=== PATIENT | female | born 1945 | race Caucasian/White ===

== ENCOUNTER 2016-10-19 13:16 | Inpatient (IN) ==
[2016-10-19] MEDS ORDERED: 0.9 % Sodium Chloride 1,000 ML IV ONE (13:53)
--- NOTE | 2016-10-19 13:57 | Emergency Department Note ---
Disposition Clinical Impression: Bradycardia, NSTEMI (non-ST elevated myocardial infarction) Disposition: Admitted As Inpatient Condition: Fair Referrals: Meño Marroquin DO [Primary Care Provider] - Time of Disposition: 15:16 Dizziness HPI - General Stated Complaint: HYPERTENSION Time Seen by Provider: 10/19/16 13:21 Source: patient Mode of arrival: ambulatory Limitations: no limitations Nursing Notes Reviewed: Yes Vital Signs Reviewed: Yes - History of Present Illness HPI Narrative: 71-year-old female history of hypertension and diabetes presents with one-day of malaise along with bradycardia with heart rates in the 30s today and hypotension with blood pressure in the 70s at home. She takes metoprolol and amlodipine. Symptoms are worse when she stands up and better with rest. She states that she has not had any dosage changes and the last 6 months. She states that the metoprolol was added for palpitations. She denies any recent illness or injury. She states that she felt lightheaded and near-syncope today , but did not pass out. She denies any other symptoms including headache, confusion, chest pain or shortness of breath, nausea, vomiting, diarrhea, or constipation. She denies abdominal pain, changes in urination or bowel movements, or rashes or edema. - Related Data Previous Rx's Medication Instructions Recorded Azithromycin [Zithromax] 250 mg PO DAILY #6 tablet 08/23/16 Allergies Allergy/AdvReac Type Severity Reaction Status Date / Time No Known Allergies Allergy Verified 08/23/16 10:19 All systems ED: reviewed and negative except as stated. Past Medical History - Past Medical History Attestation: Yes The following information was validated with the patient. Source: patient Medical history: Reports: diabetes, hyperlipidemia, hypertension Psychiatric history: Reports: no psych history - Social History Smoking Status: Never smoker Smokeless Tobacco Status: No Alcohol use: Reports: none Drug use: Reports: none Physical Exam - Head Head exam: atraumatic, normocephalic, normal inspection - Eye Eye exam: Present: normal appearance, PERRL, EOMI - ENT ENT exam: normal exam, normal oropharynx, mucous membranes moist - Neck Neck exam: Present: normal inspection, full ROM, trachea midline - Chest Chest inspection: Present: normal inspection, symmetric chest wall rise - Respiratory Respiratory exam: Clear to auscultation bilaterally without wheezes rales or rhonchi Cardiovascular Bradycardic without murmurs, rub, or gallop. - Abdominal Exam Abdominal exam: Present: soft, Non-Tender. Absent: tenderness, distention, guarding, rebound, rigidity - Extremities Exam Extremities exam: Present: normal inspection, full ROM - Expanded Lower Extremity Exam Hip/Pelvis exam: Present: normal inspection, full ROM - Back Exam Back exam: Present: normal inspection, full ROM. Absent: tenderness, CVA tenderness (R), CVA tenderness (L) - Neurological Exam Neurological exam: Present: alert, oriented X3, CN II-XII intact - Psychiatric Psychiatric exam: Present: normal affect, normal mood - Skin Skin exam: Present: warm, dry, intact, normal color - General Limitations: no limitations General appearance: alert Course - Reevaluation(s) Reevaluation #1: Patient with history of metoprolol use without any other recent illness with bradycardia and hypotension at home. Blood pressure is 100/50 and patient is mentating normally with heart rate in the 30s on my evaluation. We will not place the patient and give her pain at this time, but if he has symptoms or hypotension we will do each of these. Patient will need to be admitted for bradycardia with hypotension and near-syncope on. Time: 14:22 Reevaluation #2: Notified of troponin elevated to 9.64. Patient does know on further questioning that 4 days ago she had a few hours of chest heaviness that radiated down her bilateral upper extremities and up into her neck. She thought that it was likely indigestion. It remitted after a few hours. Not having any chest pain or shortness of breath at all today. Time: 15:15 Reevaluation #3: Case discussed with garnett machine operator helper sonar technician doctors Adele. Given that the patient has no ischemia on EKG and has no symptoms for the last 4 days she does not feel there is an indication for an emergent catheter. She would like the patient on a heparin drip for likely left heart catheter tomorrow morning. Accepted by Dr. Villagomez for further management. Time: 15:37 Vital Signs Temperature 98.2 F 10/19/16 13:17 Pulse Rate 39 10/19/16 13:17 Respiratory Rate 18 10/19/16 13:17 Blood Pressure 105/57 10/19/16 13:17 O2 Sat by Pulse Oximetry 96 10/19/16 13:17 Temperature 98.2 F 10/19/16 13:17 Pulse Rate 39 10/19/16 13:17 Respiratory Rate 18 10/19/16 13:17 Blood Pressure 105/57 10/19/16 13:17 O2 Sat by Pulse Oximetry 96 10/19/16 13:17 Dizziness - Lab Data Result diagrams: 10/19/16 14:21 10/19/16 14:21 Lab Results 10/19/16 10/19/16 10/19/16 Range/Units 14:21 14:21 14:21 WBC 12.5 H (4.3-11.1) K/mcL RBC 4.14 (3.82-4.97) M/mcL Hgb 13.2 (11.5-15.4) g/dL Hct 38.5 (35.3-44.9) % MCV 93.0 (83.0-100.0) fL MCH 31.9 (28.0-33.3) pg MCHC 34.3 (31.6-35.5) g/dL RDW 12.9 (11.5-14.5) % Plt Count 213 (140-400) K/mcL MPV 10.3 (9.4-12.4) fL Immature Gran % 0.3 (0-4) % Seg Neutrophils % 67.7 % Lymphocytes % 22.1 % Monocytes % 9.6 % Eosinophils % 0.2 % Basophils % 0.1 % Neutrophils # 8.4 (1.6-8.9) K/mcL Lymphocytes # 2.8 (0.6-4.6) K/mcL Monocytes # 1.2 (0.0-1.3) K/mcL Eosinophils # 0.0 (0.0-0.6) K/mcL Basophils # 0.0 (0.0-0.2) K/mcL Sodium 136 (136-145) mEq/L Potassium 3.3 L (3.5-4.5) mEq/L Chloride 101 (98-109) mEq/L Carbon Dioxide 23 (19-29) mEq/L BUN 18 (7-20) mg/dL Creatinine 1.08 (0.57-1.11) mg/dL Est GFR ( Amer) > 60 (> 60) Est GFR (Non-Af Amer) 50 L (> 60) BUN/Creatinine Ratio 17 (6-26) Glucose 150 H (70-99) mg/dL Calculated Osmolality 287 (280-300) Calcium 9.1 (8.6-10.8) mg/dL Troponin I 9.64 H* (0-0.03) ng/mL
--- NOTE | 2016-10-19 14:00 | Emergency Department Note ---
START Narrative - START START: I examined this patient and my medical decision-making was reviewed with the CREDIT ADMINISTRATION OFFICER/PA/Advanced Practice Nurse/Resident Physician. I agree with the documented findings, disposition and treatment plan as described except to the extent set forth below. ED attending: Patient's emergency medicine resident Dr. Barrera. Please see copy of this note for H&P evaluation and management and ED disposition. We both had independent [id number] time in contact with this patient. Briefly: A 71-year-old female by EMS for lightheadedness and dizziness. Normally takes metoprolol and amlodipine for blood pressure comes in bradycardic in the 30s systolic of 70 recorded in the field at 105 in the ED. She is tired because she is lying supine she is asymptomatic. EKG shows sinus bradycardia without acute ischemic changes. Patient will be given IV fluids screening labs and chest x-ray. We will admit patient. Forward symptomatic bradycardia. Possibly from unintentional beta ankit overmedication. Provided 45 minutes critical care service this patient. Disposition pending.
[2016-10-19 14:41] LABS: Basophils % 0.1 %; Eosinophils % 0.2 %; Hematocrit 38.5 % (35.3-44.9); Hemoglobin 13.2 g/dL (11.5-15.4); Immature Granulocytes % 0.3 % (0-4); Lymphocytes # 2.8 K/mcL (0.6-4.6); Lymphocytes % 22.1 %; Mean Corpuscular HGB Conc 34.3 g/dL (31.6-35.5); Mean Corpuscular Hemoglobin 31.9 pg (28.0-33.3); Mean Platelet Volume 10.3 fL (9.4-12.4); Monocytes # 1.2 K/mcL (0.0-1.3); Monocytes % 9.6 %; Neutrophils # 8.4 K/mcL (1.6-8.9); Platelet Count 213 K/mcL (140-400); Red Blood Count 4.14 M/mcL (3.82-4.97); Red Cell Distribution Width 12.9 % (11.5-14.5); Segmented Neutrophils % 67.7 %
[2016-10-19 14:59] LABS: BUN/Creatinine Ratio 17 (6-26); Blood Urea Nitrogen 18 mg/dL (7-20); Calcium 9.1 mg/dL (8.6-10.8); Carbon Dioxide 23 mEq/L (19-29); Chloride 101 mEq/L (98-109); Glucose 150 mg/dL (70-99); Osmolality,Calculated 287 (280-300); Potassium 3.3 mEq/L (3.5-4.5); Sodium 136 mEq/L (136-145); eGFR For African Americans > 60 (> 60); eGFR For Non-African Americans 50 (> 60)
[2016-10-19] MEDS ORDERED: *HR* Heparin 5,000 UNIT/ML VIAL IVP PRN ×2 (15:27)
[2016-10-19] MEDS ORDERED: *HR* Heparin 5,000 UNIT/ML VIAL IVP ONE (15:27)
[2016-10-19] MEDS ORDERED: Aspirin 81 MG TAB.CHEW PO ONE (15:37)
[2016-10-19 16:21] LABS: INR 1.1; Prothrombin Time 12.4 Seconds (9.4-12.1)
[2016-10-19 16:24] LABS: Activated Partial Thrombo Time 27.8 Seconds (26.0-36.0)
[2016-10-19] MEDS: Heparin 25,000 UNIT/500 ML D5W 25,000 UNIT/500 ML MLS IVC SCH (16:35)
[2016-10-19] MEDS ORDERED: Ondansetron 4 MG/2 ML VIAL IVP PRN (18:20)
[2016-10-19] MEDS ORDERED: Acetaminophen 325 MG TABLET PO PRN (18:20)
[2016-10-19] MEDS ORDERED: *HR* Atropine Sulfate 1 MG/10 ML SYRINGE IVP PRN (18:27)
[2016-10-19] MEDS ORDERED: Dextrose Gel 15 GM PO PRN ×2 (18:29)
[2016-10-19] MEDS ORDERED: D5% in Water 1,000 ML IV PRN (18:29)
[2016-10-19] MEDS ORDERED: *HR* Dextrose 50 % in Water (Syg) 50 ML SYRINGE IVP PRN (18:29)
--- NOTE | 2016-10-19 19:54 | Internal Med History&Physical ---
<Khloe Hager - Last Filed: 10/19/16 21:56> Date of Encounter: 10/19/16 Time of Encounter: 21:52 Assessment and Plan (1) NSTEMI (non-ST elevated myocardial infarction) Current visit: Yes Status: Acute heparin drip trend troponin plan for LHC in the AM (2) Bradycardia Current visit: Yes Status: Acute currently stable - patient A&O x3 atropine PRN vitals q4hr for now hold metoprolol (3) Hypokalemia Current visit: Yes Status: Acute most likely due to diuretic therapy patient takes potassium supplements at home recheck with AM labs replete (4) UTI (urinary tract infection) Current visit: Yes Status: Acute rocephin IV Qualifiers: Urinary tract infection type: site unspecified Hematuria presence: without hematuria Qualified Code(s): N39.0 - Urinary tract infection, site not specified (5) H/O essential hypertension Current visit: Yes Status: Acute Patient reports hypotension the morning of her admission - she did not take her anti-hypertensives before coming to the ER her BPs in the hospital have been low normal hold antihypertensives (6) Diabetes Current visit: Yes Status: Acute sliding scale Qualifiers: Diabetes mellitus type: type 2 Diabetes mellitus complication status: without complication Diabetes mellitus intermediate designer insulin use: without intermediate designer use Qualified Code(s): E11.9 - Type 2 diabetes mellitus without complications (7) Hypothyroid Current visit: Yes Status: Acute continue levothyroxine Qualifiers: Hypothyroidism type: unspecified Qualified Code(s): E03.9 - Hypothyroidism , unspecified (8) Hyperparathyroidism Current visit: Yes Status: Acute Internal Medicine - H&P: HPI Chief complaint: bradycardia, hypotension Admitted From: Emergency Dept Plans for Post Hospital Care: Home History of present illness: Ms. Brennan is a 71 year old hypertensive diabetic female who was taking her blood pressure and pulse this morning before taking her daily medication and noticed that she was hypotensive and bradycardic. She states that she felt dizzy upon standing. She decided to come to the emergency room due to the hypotension and bradycardia. On further questioning she states that 4 days ago she felt a chest heaviness that radiated to her back between her shoulder blades and down both arms. This was relieved with an antacid. The following morning she still had a heaviness going down her arms but it was no longer located in her chest and was mildly located in her back. On review of systems the most markedly positive thing was a loss of appetite yesterday and today. Past Med Surg Social Fam HX - Past Medical History Medical history: cancer (malignant melanoma), diabetes, hyperlipidemia, hypertension, kidney stones, thyroid disease (hypothyroid), other ( hyperparathyroidism) Psychiatric history: depression - Past Surgical History Surgical History: cancer surgery (melanoma), cholecystectomy, other ( parathyroid tumor - benign, lower lip lesion - benign) - Social History Smoking Status: Never smoker Smokeless Tobacco Status: No Alcohol use: none Drug use: none Current living situation: Home - Independent Activity Level: Independent ambulation - Family History Mother Living Status: Age at : 76 Hx Family Cardiac Disorders: Yes (HTN) Father Living Status: Age at : 87 Hx Family Cardiac Disorders: Yes (CAD, PVD) Hx Family Endocrine Disorder: Yes (DM) Brother Hx Family Cancer: Yes (1 with stomach, 1 with lung) Internal Medicine - H&P: Meds Amlodipine [Norvasc] 5 mg PO DAILY 10/19/16 [History] Aspirin [Lo-Dose Aspirin EC] 81 mg PO DAILY 10/19/16 [History] Beta-Carotene [Beta Carotene] 10,000 unit PO DAILY 10/19/16 [History] Calcium Carbonate/Vitamin D3 [Calcium 600 + Vit D Softgel] 1 cap PO BID [History] Cyanocobalamin (Vitamin B-12) [Vitamin B-12] 1,000 mcg PO DAILY 10/19/16 [ History] Glimepiride [Amaryl] 1 mg PO QAM 10/19/16 [History] Levothyroxine [Synthroid] 112 mcg PO MOTUWETHFRSA 10/19/16 [History] Lisinopril/Hydrochlorothiazide [Zestoretic 20-12.5 mg Tablet] 1 tab PO BID 10/19 [History] Lutein 6 mg PO DAILY 10/19/16 [History] Metoprolol Tartrate [Lopressor] 50 mg PO QAM 10/19/16 [History] Multivit-Min/FA/Lutein/Zeaxant [Macular Vitamin Tablet] 1 tab PO DAILY 10/19/16 [History] [place]-3/Dha/Epa/Fish Oil [Fish Oil 1,000 mg Softgel] 1,000 mg PO DAILY 10/19/16 [History] Potassium Chloride [Klor-Con] 20 meq PO DAILY 10/19/16 [History] Pravastatin Sodium [Pravachol] 40 mg PO DAILY 10/19/16 [History] Allergies guaifenesin [From Mucinex] Adverse Reaction (Verified 10/19/16 16:15) Gastrointestinal Upset All Systems PM: A 10-system review of systems was performed and is negative for pertinent findings except as documented above in the HPI. - Constitutional Constitutional: no chills, no fever(s), no night sweats - EENT Eyes: no change in vision, no discharge, no pain, no photophobia Ears: no ear discharge, no ear pain, no tinnitus Nose, mouth and throat: no dysphagia, no nasal discharge, no neck pain, no sore throat - Cardiovascular Cardiovascular ROS IM: chest pain, irregular heart rhythm, lightheadedness, no diaphoresis, no dyspnea, no palpitations, no syncope - Respiratory Respiratory: no cough, no dyspnea, no wheezing, no excessive phlegm production - Gastrointestinal Gastrointestinal: other (loss of appetite), no abdominal pain, no diarrhea, no hematemesis, no hematochezia, no melena, no nausea, no vomiting - Genitourinary Genitourinary: no change in urinary stream, no dysuria, no flank pain, no hematuria - Musculoskeletal Musculoskeletal ROS IM: no numbness, no tingling - Integumentary Integumentary IM: no rash, no unusual bruising - Neurological Neurological ROS: dizziness, no confusion, no convulsions, no focal weakness, no numbness, no tingling, no tremor(s) - Hematologic/Lymphatic Hematologic/Lymphatic: no easy bruising - Constitutional Vitals: Temp Pulse Resp BP Pulse Ox 98.5 F 38 12 92/51 95 10/19/16 19:47 10/19/16 19:47 10/19/16 19:47 10/19/16 19:47 10/19/16 19:47 General appearance: Present: A&O X 3, pleasant, no acute distress, answers questions appropriately - Head Head exam: Present: atraumatic, normocephalic - Eye Eye exam: Present: PERRL, conjuntiva pink, sclera anicteric Pupils: Present: PERRL - Neck Neck exam general surgery: Present: supple, trachea midline. Absent: lymphadenopathy - Respiratory Respiratory exam: Present: CTAB. Absent: accessory muscle use, rales, rhonchi, wheezes - Cardiovascular Cardiovascular exam: Present: bradycardia, +S1, +S2. Absent: diastolic murmur, gallop, rubs, systolic murmur - GI/Abdominal GI/Abdominal exam: Present: normal bowel sounds, soft, no peritoneal signs. Absent: distended, tenderness - Extremities Exam Extremities exam: Present: warm, radial pulses palpable and symetrical. Absent : calf tenderness, cyanotic, pedal edema - Neurological Exam Neurological exam: Present: CN II-XII intact, oriented X3, no focal deficits. Absent: pronater drift, facial droop, speech deficit - Skin Skin exam: Present: dry, intact Internal Med - H&P Results - Labs CBC & Chem 7: 10/19/16 14:21 10/19/16 14:21 - VTE Documentation of Mechanical Device: Venous foot pump, device <Panfilo Calvert - Last Filed: 10/23/16 03:45> Assessment and Plan (1) DVT prophylaxis Current visit: Yes Status: Acute . (2) Coronary artery disease Current visit: Yes Status: Acute . Qualifiers: Coronary Disease-Associated Artery/Lesion type: [place] artery [place] vs. transplanted heart: [place] heart Associated angina: with unstable angina Qualified Code(s): I25.110 - Atherosclerotic heart disease of [place] coronary artery with unstable angina pectoris (3) Bradycardia Current visit: Yes Status: Acute . (4) Diabetes Current visit: Yes Status: Acute . Qualifiers: Diabetes mellitus type: type 2 Diabetes mellitus complication status: with unspecified complications Diabetes mellitus detention insulin use: unspecified intermediate designer insulin use status Qualified Code(s): E11.8 - Type 2 diabetes mellitus with unspecified complications (5) NSTEMI (non-ST elevated myocardial infarction) Current visit: Yes Status: Acute . (6) DVT prophylaxis Current visit: Yes Status: Acute . (7) Anemia Current visit: Yes Status: Acute . Qualifiers: Anemia type: iron deficiency Iron deficiency anemia type: unspecified iron deficiency Qualified Code(s): D50.9 - Iron deficiency anemia, unspecified (8) Current visit: No (9) Current visit: No . (10) Current visit: No . (11) Current visit: No . (12) H/O essential hypertension Current visit: Yes Status: Acute (13) Hyperparathyroidism Current visit: Yes Status: Chronic . (14) Hypokalemia Current visit: Yes Status: Acute (15) Hypothyroid Current visit: Yes Status: Chronic Qualifiers: Hypothyroidism type: unspecified Qualified Code(s): E03.9 - Hypothyroidism , unspecified (16) NSTEMI (non-ST elevated myocardial infarction) Current visit: Yes Status: Acute (17) UTI (urinary tract infection) Current visit: Yes Status: Acute Qualifiers: Urinary tract infection type: site unspecified Hematuria presence: without hematuria Qualified Code(s): N39.0 - Urinary tract infection, site not specified Internal Medicine - H&P: HPI History of present illness: Ms. Brennan is a 71 year old female admitted to [facility] via the emergency department with chief complaint of lightheadedness and dizziness associated with a dramatic drop in heart rate and blood pressure measured in the home. The patient was visited and interviewed and examined. I examined this patient and my medical decision-making was reviewed with the Resident Physician. For this encounter, I have reviewed the documentation, treatment plan, and medical decision making. I agree with the documented findings, disposition and treatment plan as described except to the extent set forth below. Cumulative laboratory and radiographic database was reviewed and considered and discussed. The patient's presenting concerns, past medical history, clinical findings and symptoms, she is admitted at this time to undergo further evaluation and disposition. Orders were written as per the computerized physician reproduction order processor system................ Past Med Surg Social Fam HX - Past Medical History Source: old records reviewed Medical history: arthritis, cancer, diabetes, hyperlipidemia, hypertension, kidney stones, osteoporosis (Vitamin D deficiency. Hyperparathyroidism.), thyroid disease, other Psychiatric history: anxiety, depression, other - Past Surgical History Surgical History: cancer surgery, cholecystectomy, other - Social History Smoking Status: Never smoker Smokeless Tobacco Status: No Alcohol use: none Drug use: none Occupational status: retired Current living situation: Home - Independent Activity Level: Independent ambulation, Mostly sedentary Recent Out of Country Travel Within the Last 8 Weeks: No Exposure or Possible Exposure to Illness During Travel: No All Systems PM: A 10-system review of systems was performed and is negative for pertinent findings except as documented above in the HPI. - Constitutional Vitals: Temp Pulse Resp BP Pulse Ox 98.9 F 45 14 101/64 94 L 10/19/16 23:37 10/19/16 23:37 10/19/16 23:37 10/19/16 23:37 10/19/16 23:37 Internal Med - H&P Results - Labs CBC & Chem 7: 10/23/16 03:01 10/22/16 02:46 Labs: Cardiac Enzymes 10/19/16 Range/Units 21:15 Troponin I 10.25 H* (0-0.03) ng/mL Urine 10/19/16 Range/Units 20:55 Urine Color Yellow (Yellow) Urine Clarity Cloudy A (Clear) Urine pH 6.0 (5.0-8.0) pH Units Ur Specific [place] 1.013 (1.010-1.025) Urine Protein Negative (Neg-Trace) mg/dL Urine Glucose (UA) Normal (Normal) mg/dL - Impressions Vital Signs Temp Pulse Resp BP Pulse Ox 10/19/16 23:37 98.9 F 45 14 101/64 94 L 10/19/16 22:54 44 10/19/16 20:56 44 16 101/54 93 L 10/19/16 19:55 42 10/19/16 19:50 40 18 103/43 95 10/19/16 19:47 98.5 F 38 12 92/51 95 10/19/16 17:09 98.2 F 41 18 108/71 95 10/19/16 16:45 18 98/43 10/19/16 15:36 39 18 95/48 98 10/19/16 13:17 98.2 F 39 18 105/57 96 Intake and Output 10/19/16 10/19/16 10/20/16 15:59 23:59 07:59 Intake Total 1700 / 1700 Output Total 600 / 600 Balance 1100 / 1100 Intake: IV Fluids 1100 / 1100 0.9 % Sodium Chloride 1, 1000 / 1000 000 ML @ 3750 mls/hr IV [facility] Rx#:[id number] Rocephin 1,000 MG In 100 / 100 Dextrose 5% (Minibag+) 100 ML 100 ML @ 200 mls/ hr IVPB Q24H [facility] Rx#: [id number] Oral 600 / 600 Output: Urine 600 / 600 Other: Weight 79.832 kg Blood Glucose* 112 Short CBC 10/19/16 Range/Units 14:21 WBC 12.5 H (4.3-11.1) K/mcL Hgb 13.2 (11.5-15.4) g/dL Hct 38.5 (35.3-44.9) % Plt Count 213 (140-400) K/mcL Neutrophils # 8.4 (1.6-8.9) K/mcL BMP 10/19/16 Range/Units 14:21 Sodium 136 (136-145) mEq/L Potassium 3.3 L (3.5-4.5) mEq/L Chloride 101 (98-109) mEq/L Carbon Dioxide 23 (19-29) mEq/L BUN 18 (7-20) mg/dL Creatinine 1.08 (0.57-1.11) mg/dL Glucose 150 H (70-99) mg/dL Calcium 9.1 (8.6-10.8) mg/dL Cardiac Enzymes 10/19/16 10/19/16 Range/Units 21:15 14:21 Troponin I 10.25 H* 9.64 H* (0-0.03) ng/mL Urine 10/19/16 Range/Units 20:55 Urine Color Yellow (Yellow) Urine Clarity Cloudy A (Clear) Urine pH 6.0 (5.0-8.0) pH Units Ur Specific [place] 1.013 (1.010-1.025) Urine Protein Negative (Neg-Trace) mg/dL Urine Glucose (UA) Normal (Normal) mg/dL Abnormal lab results WBC 12.5 K/mcL (4.3-11.1) H 10/19/16 14:21 PT 12.4 Seconds (9.4-12.1) H 10/19/16 14:21 APTT 57.1 Seconds (26.0-36.0) H D 10/19/16 22:28 Potassium 3.3 mEq/L (3.5-4.5) L 10/19/16 14:21 Est GFR (Non-Af Amer) 50 (> 60) L 10/19/16 14:21 Glucose 150 mg/dL (70-99) H 10/19/16 14:21 POC Glucose 181 (58-89) H 10/19/16 17:12 Troponin I 10.25 ng/mL (0-0.03) H* 10/19/16 21:15 Urine Clarity Cloudy (Clear) A 10/19/16 20:55 Ur Leukocyte Esterase Large (Negative) H 10/19/16 20:55 Urine Microscopic WBC 50-100 per hpf (0-3) H 10/19/16 20:55 Ur Squamous Epith Cells Many per lpf (None-Few) H 10/19/16 20:55 Ur Culture Indicated? YES (NO) A 10/19/16 20:55 Allergies Allergy/AdvReac Type Severity Reaction Status Date / Time guaifenesin [From Mucinex] AdvReac Gastrointestinal Verified 10/19/16 16:15 Upset Laboratory Results WBC 12.5 K/mcL (4.3-11.1) H 10/19/16 14:21 RBC 4.14 M/mcL (3.82-4.97) 10/19/16 14:21 Hgb 13.2 g/dL (11.5-15.4) 10/19/16 14:21 Hct 38.5 % (35.3-44.9) 10/19/16 14:21 MCV 93.0 fL (83.0-100.0) 10/19/16 14:21 MCH 31.9 pg (28.0-33.3) 10/19/16 14:21 MCHC 34.3 g/dL (31.6-35.5) 10/19/16 14:21 RDW 12.9 % (11.5-14.5) 10/19/16 14:21 Plt Count 213 K/mcL (140-400) 10/19/16 14:21 MPV 10.3 fL (9.4-12.4) 10/19/16 14:21 Immature Gran % 0.3 % (0-4) 10/19/16 14:21 Seg Neutrophils % 67.7 % 10/19/16 14:21 Lymphocytes % 22.1 % 10/19/16 14:21 Monocytes % 9.6 % 10/19/16 14:21 Eosinophils % 0.2 % 10/19/16 14:21 Basophils % 0.1 % 10/19/16 14:21 Neutrophils # 8.4 K/mcL (1.6-8.9) 10/19/16 14:21 Lymphocytes # 2.8 K/mcL (0.6-4.6) 10/19/16 14:21 Monocytes # 1.2 K/mcL (0.0-1.3) 10/19/16 14:21 Eosinophils # 0.0 K/mcL (0.0-0.6) 10/19/16 14:21 Basophils # 0.0 K/mcL (0.0-0.2) 10/19/16 14:21 PT 12.4 Seconds (9.4-12.1) H 10/19/16 14:21 INR 1.1 10/19/16 14:21 APTT 57.1 Seconds (26.0-36.0) H D 10/19/16 22:28 Sodium 136 mEq/L (136-145) 10/19/16 14:21 Potassium 3.3 mEq/L (3.5-4.5) L 10/19/16 14:21 Chloride 101 mEq/L (98-109) 10/19/16 14:21 Carbon Dioxide 23 mEq/L (19-29) 10/19/16 14:21 BUN 18 mg/dL (7-20) 10/19/16 14:21 Creatinine 1.08 mg/dL (0.57-1.11) 10/19/16 14:21 Est GFR ( Amer) > 60 (> 60) 10/19/16 14:21 Est GFR (Non-Af Amer) 50 (> 60) L 10/19/16 14:21 BUN/Creatinine Ratio 17 (6-26) 10/19/16 14:21 Glucose 150 mg/dL (70-99) H 10/19/16 14:21 POC Glucose 181 (58-89) H 10/19/16 17:12 Calculated Osmolality 287 (280-300) 10/19/16 14:21 Calcium 9.1 mg/dL (8.6-10.8) 10/19/16 14:21 Troponin I 10.25 ng/mL (0-0.03) H* 10/19/16 21:15 Urine Color Yellow (Yellow) 10/19/16 20:55 Urine Clarity Cloudy (Clear) A 10/19/16 20:55 Urine pH 6.0 pH Units (5.0-8.0) 10/19/16 20:55 Ur Specific [place] 1.013 (1.010-1.025) 10/19/16 20:55 Urine Protein Negative mg/dL (Neg-Trace) 10/19/16 20:55 Urine Glucose (UA) Normal mg/dL (Normal) 10/19/16 20:55 Urine Ketones Negative mg/dL (Negative) 10/19/16 20:55 Urine Blood Negative (Negative) 10/19/16 20:55 Urine Nitrite Negative (Negative) 10/19/16 20:55 Urine Bilirubin Negative (Negative) 10/19/16 20:55 Urine Urobilinogen Normal mg/dL (Normal) 10/19/16 20:55 Ur Leukocyte Esterase Large (Negative) H 10/19/16 20:55 Urine Microscopic RBC 0-3 per hpf (0-3) 10/19/16 20:55 Urine Microscopic WBC 50-100 per hpf (0-3) H 10/19/16 20:55 Ur Squamous Epith Cells Many per lpf (None-Few) H 10/19/16 20:55 Urine Bacteria None Seen per hpf (None-Few) 10/19/16 20:55 Hyaline Casts None Seen per lpf (None-Few) 10/19/16 20:55 Ur Culture Indicated? YES (NO) A 10/19/16 20:55 Impressions Chest X-Ray 10/19/16 13:53 IMPRESSION: Borderline cardiomegaly. The lungs are clear. D/ / Nehemiah Thompson MD / Nehemiah Thompson MD Interpreting Provider: Nehemiah Thompson MD - Attending Attestation My signature below is to certify that this patient is under my care and that I, or the Resident Physician working with me, has had a [id number] encounter with this patient. Plan of care has been reviewed and discussed with patient. Questions addressed. Advance care directive discussion briefly addressed. Patient does not declare any healthcare restrictions at this time. Outpatient medication schedules, confirmed and facilitated as appropriate reconciliation of home treatments including adjustments substitutions and reintroduction of his regimen will address this maintenance therapies for chronic pre-existing medical conditions. Given patient's presenting concerns and clinical findings several treatments have been withheld pending patient's full recovery. Acute coronary syndrome protocols/surveillance initiated. Cardiovascular risk appraisal and cardiovascular risk reduction efforts emphasized. Smoking cessation counseling briefly addressed. Patient is a nonsmoker. Hospital course will be dependent on clinical findings, treatment response and potential consultative interventions. The patient is at risk and clinical decline and morbidity given his presenting chief complaint, findings and comorbidities. Condition is serious. Prognosis is cautiously optimistic. CODE STATUS is full.
[2016-10-19] MEDS: Insulin LISPRO 300 UNITS/3 ML VIAL SQ SCH (20:03)
[2016-10-19 21:06] LABS: Bilirubin,Urine Negative (Negative); Blood,Urine Negative (Negative); Clarity,Urine Cloudy (Clear); Color,Urine Yellow (Yellow); Glucose,Urine (UA) Normal (Normal); Ketones,Urine Negative (Negative); Leukocyte Esterase,Urine Large (Negative); Nitrite,Urine Negative (Negative); Protein,Urine Negative (Neg-Trace); Specific Gravity,Urine 1.013 (1.010-1.025); Urobilinogen,Urine Normal (Normal)
[2016-10-19 21:08] LABS: Bacteria,Urine None Seen per hpf (None-Few); Hyaline Casts,Urine None Seen per lpf (None-Few); RBC,Urine 0-3 per hpf (0-3); Squamous Epithelial Cell,Urine Many per lpf (None-Few); WBC,Urine 50-100 per hpf (0-3)
[2016-10-19] MEDS ORDERED: Nitroglycerin 0.4 MG TAB.SUBL SL PRN (22:27)
[2016-10-19] MEDS ORDERED: Naloxone 0.4 MG/ML INJ IVP PRN (22:27)
[2016-10-19] MEDS ORDERED: Pantoprazole 40 MG VIAL IVP STA (22:27)
[2016-10-20 06:46] LABS: Basophils % 0.2 %; Eosinophils % 0.2 %; Hematocrit 32.9 % (35.3-44.9); Immature Granulocytes % 0.3 % (0-4); Lymphocytes # 2.8 K/mcL (0.6-4.6); Lymphocytes % 28.5 %; Mean Corpuscular Hemoglobin 31.6 pg (28.0-33.3); Mean Corpuscular Volume 92.9 fL (83.0-100.0); Mean Platelet Volume 9.8 fL (9.4-12.4); Monocytes # 0.8 K/mcL (0.0-1.3); Monocytes % 7.6 %; Neutrophils # 6.2 K/mcL (1.6-8.9); Platelet Count 154 K/mcL (140-400); Red Blood Count 3.54 M/mcL (3.82-4.97); Red Cell Distribution Width 12.9 % (11.5-14.5); Segmented Neutrophils % 63.2 %
[2016-10-20 06:53] LABS: Hemoglobin A1C 5.8 %
[2016-10-20 06:58] LABS: Alanine Aminotransferase 14 Units/L (0-55); Albumin 2.6 g/dL (3.5-5.0); Albumin/Globulin Ratio 0.8 (1.1-2.2); Alkaline Phosphatase 66 Units/L (38-126); Aspartate Amino Transferase 33 Units/L (5-34); BUN/Creatinine Ratio 17 (6-26); Bilirubin,Direct 0.2 mg/dL (0.0-0.5); Bilirubin,Indirect 0.2 mg/dL (0.0-1.2); Bilirubin,Total 0.4 mg/dL (0.2-1.2); Blood Urea Nitrogen 13 mg/dL (7-20); Calcium 8.1 mg/dL (8.6-10.8); Carbon Dioxide 21 mEq/L (19-29); Chloride 107 mEq/L (98-109); Cholesterol 141 mg/dL (< 200); Creatine Kinase 175 Units/L (29-168); Globulin 3.2 g/dL (2.4-3.5); Glucose 123 mg/dL (70-99); HDL Cholesterol 35 mg/dL (40-59); LDL Cholesterol,Calculated 77 mg/dL (0-99); Magnesium 1.5 mg/dL (1.6-2.6); Osmolality,Calculated 287 (280-300); Phosphorous 2.6 mg/dL (2.3-4.7); Potassium 3.5 mEq/L (3.5-4.5); Sodium 138 mEq/L (136-145); Total Protein 5.8 g/dL (6.0-8.3); Triglycerides 144 mg/dL (< 150); eGFR For African Americans > 60 (> 60); eGFR For Non-African Americans > 60 (> 60)
[2016-10-20 07:00] LABS: Hemoglobin 11.2 g/dL (11.5-15.4)
[2016-10-20 07:13] LABS: Activated Partial Thrombo Time 115.7 Seconds (26.0-36.0)
[2016-10-20 07:20] LABS: Thyroid Stimulating Hormone 0.997 mcIU/mL (0.350-4.840)
[2016-10-20 07:21] LABS: Heparin anti-factor XA UFH 0.6 IU/mL (0.30-0.70)
[2016-10-20] MEDS: Insulin LISPRO 300 UNITS/3 ML VIAL SQ SCH ×4 (08:54→19:34)
[2016-10-20] MEDS: (Fish Oil 1,000 Mg Softgel) PO SCH (08:57)
[2016-10-20] MEDS: BETA CAROTENE 10000 UNIT PO SCH (08:57)
[2016-10-20] MEDS: LUTEIN 6 MG PO SCH (08:57)
[2016-10-20] MEDS: [UNRECOGNIZED DRUG - OTHER] PO SCH (08:57)
[2016-10-20] MEDS ORDERED: Aspirin Enteric Coated 81 MG Tablet PO SCH (09:00)
[2016-10-20] MEDS ORDERED: Aspirin 81 MG TAB.CHEW PO SCH (09:00)
[2016-10-20] MEDS: Pantoprazole 40 MG VIAL IVP SCH (09:01)
[2016-10-20] MEDS: Cyanocobalamin (B-12) 1,000 MCG TABLET PO SCH (09:01)
--- NOTE | 2016-10-20 09:19 | Cardiology Consult Note ---
<Octavia Dennison Pete - Last Filed: 10/20/16 09:34> Date of Encounter: 10/20/16 Time of Encounter: 07:15 Assessment and Plan (1) NSTEMI (non-ST elevated myocardial infarction) Current Visit: Yes Status: Acute Peak troponin 10.25, no acute ECG changes. Suspect event last Friday. Risk factors for CAD: HTN, HLD, DMII, and positive family history. Agree with heparin gtt. Continue asa. Change statin to atorvastatin. No betablocker due to bradycardia. Plavix 300 mg x1 now. Recommend [facility]; alternatives, risks, and benefits discussed--patient is agreeable to proceed. Echocardiogram pending. Further recommendations based on above testing. (2) Bradycardia Current Visit: Yes Status: Acute Hemodynamically stable, asymptomatic. On 50 mg metoprolol at home, hold all AV joie blocking agents. HR in the ED reportedly in the 30s. AVg HR=45 SB. Max pause 2.9 seconds. Continue to monitor. Discussion w patient/family: The assessment and plan as outlined above was discussed with the patient and/or family members who expressed understanding and agreement. All questions were answered. Thank you for involving us in the care of your patient. Please call with any questions. The patient will be discussed and reviewed with Dr. Angulo; changes to be made accordingly. History of Present Illness Consult date: 10/20/16 Requesting physician: Khloe Hager Consult reason: NSTEMI Chief complaint: Chest pain History of present illness: Ms. Brennan is a 71 year old female with PMH significant for DMII, HTN, HLD who presented to the ED with chief complaint of dizziness that started Friday morning upon awakening, symptoms persisted throughout the day and therefore went to the ED for further evaluation. She reports this past Friday she had left sided chest heaviness with radiation through back and down bilateral arms; discomfort lasted several hours. She took an antacid which she felt helped. Prior CV testing: TTE: EF 55-60%, no significant valvular dysfunction, normal wall motion Past Med Surg Social Fam HX - Past Medical History Medical history: arthritis, diabetes, hyperlipidemia, hypertension, osteoporosis - Past Surgical History Surgical History: cancer surgery (melanoma), cholecystectomy, other ( parathyroid tumor - benign, lower lip lesion - benign, kidney stones) - Social History Smoking Status: Never smoker Smokeless Tobacco Status: No Alcohol use: none Drug use: none - Family History Mother Living Status: Age at : 76 Hx Family Cardiac Disorders: Yes (HTN) Father Living Status: Age at : 87 Hx Family Cardiac Disorders: Yes (CAD, PVD) Hx Family Endocrine Disorder: Yes (DM) Brother Hx Family Cancer: Yes (1 with stomach, 1 with lung) Medications and Allergies Amlodipine [Norvasc] 5 mg PO DAILY 10/19/16 [History] Aspirin [Lo-Dose Aspirin EC] 81 mg PO DAILY 10/19/16 [History] Beta-Carotene [Beta Carotene] 10,000 unit PO DAILY 10/19/16 [History] Calcium Carbonate/Vitamin D3 [Calcium 600 + Vit D Softgel] 1 cap PO BID [History] Cyanocobalamin (Vitamin B-12) [Vitamin B-12] 1,000 mcg PO DAILY 10/19/16 [ History] Glimepiride [Amaryl] 1 mg PO QAM 10/19/16 [History] Levothyroxine [Synthroid] 112 mcg PO MOTUWETHFRSA 10/19/16 [History] Lisinopril/Hydrochlorothiazide [Zestoretic 20-12.5 mg Tablet] 1 tab PO BID 10/19 [History] Lutein 6 mg PO DAILY 10/19/16 [History] Metoprolol Tartrate [Lopressor] 50 mg PO QAM 10/19/16 [History] Multivit-Min/FA/Lutein/Zeaxant [Macular Vitamin Tablet] 1 tab PO DAILY 10/19/16 [History] Baldwin-3/Dha/Epa/Fish Oil [Fish Oil 1,000 mg Softgel] 1,000 mg PO DAILY 10/19/16 [History] Potassium Chloride [Klor-Con] 20 meq PO DAILY 10/19/16 [History] Pravastatin Sodium [Pravachol] 40 mg PO DAILY 10/19/16 [History] Allergies guaifenesin [From Mucinex] Adverse Reaction (Verified 10/19/16 16:15) Gastrointestinal Upset All Systems Review: A 10-system review of systems was performed and is negative for pertinent findings except as documented above in the HPI. - Cardiovascular Cardiovascular: as per HPI Physical Examination Vital Signs, Last 4 Hours Temp Pulse BP Pulse Ox 10/20/16 08:50 98.3 F 43 112/48 94 L General: Conversant HEENT: Atraumatic, Normocephaly Neck: No JVD Cardiac: Normal S1 and S2, Other (bradycardiac) Lungs: Normal Breath Sounds Neuro: Alert and responsive Abdomen: Soft Skin: No rashes noted on visualized skin Musculoskeletal: No Chest Wall Tenderness Extremities: No Edema, Normal Pulses Results 10/20/16 06:34 10/20/16 06:34 Lab Results 10/19/16 10/19/16 10/20/16 21:15 22:28 06:34 WBC 9.8 Hgb 11.2 L D Hct 32.9 L Plt Count 154 APTT 57.1 H D Sodium Potassium Chloride Carbon Dioxide BUN Creatinine Glucose Calcium Magnesium Total Bilirubin AST ALT Alkaline Phosphatase Troponin I 10.25 H* B-Natriuretic Peptide TSH 10/20/16 10/20/16 10/20/16 06:34 06:34 06:34 WBC Hgb Hct Plt Count APTT Sodium 138 Potassium 3.5 Chloride 107 Carbon Dioxide 21 BUN 13 Creatinine 0.76 Glucose 123 H Calcium 8.1 L Magnesium 1.5 L Total Bilirubin 0.4 AST 33 ALT 14 Alkaline Phosphatase 66 Troponin I 9.68 H* B-Natriuretic Peptide 688 H TSH 0.997 Active Medications Acetaminophen (Tylenol) 650 mg PO Q6HR PRN PRN Reason: Mild Pain (1-3) Stop: 04/20/17 18:21 Aspirin (Aspirin Ec) 81 mg PO DAILY [facility] Stop: 04/21/17 09:01 Aspirin (Aspirin) 81 mg PO DAILY [facility] Stop: 04/21/17 09:01 Last Admin: 10/20/16 09:01 Dose: 81 mg Atropine Sulfate (Atropine) 0.5 mg IVP ONCE PRN PRN Reason: Bradycardia Stop: 04/20/17 18:28 Calcium Carbonate (Tums) 500 mg PO BID [facility] Stop: 04/21/17 09:01 Last Admin: 10/20/16 09:01 Dose: 500 mg Cyanocobalamin (Vitamin B12) 1,000 mcg PO DAILY [facility] Stop: 04/21/17 09:01 Last Admin: 10/20/16 09:01 Dose: 1,000 mcg Dextrose/Water (Dextrose 50% (Syg)) 25 ml IVP AD PRN PRN Reason: Hypoglycemia Stop: 04/20/17 18:30 Docusate Sodium (Colace) 100 mg PO BID PRN PRN Reason: Constipation Stop: 04/20/17 22:28 Heparin Sodium (Porcine) (Heparin) 4,000 unit IVP Q6HR PRN PRN Reason: SEE COMMENTS Stop: 04/20/17 15:28 Heparin Sodium (Porcine) (Heparin) 2,000 unit IVP Q6H PRN PRN Reason: SEE COMMENTS Stop: 04/20/17 15:28 Last Admin: 10/20/16 00:11 Dose: 2,000 unit Heparin Sodium/Dextrose (Heparin 25,000 Unit/500 Ml D5w) 25,000 unit in 500 mls @ 19.16 mls/hr IVC .Q24H SHOBHA; 12 UNIT/KG/HR PRN Reason: Protocol Stop: 04/20/17 15:31 Last Titration: 10/20/16 08:56 Dose: 13.77 unit/kg/hr, 22 mls/hr Sodium Chloride (0.45% Sodium Chloride 1000 Ml 1000 Ml) 1,000 mls @ 75 mls/hr IVC .[id number] [facility] Stop: 04/20/17 18:31 Last Admin: 10/20/16 08:54 Dose: 75 mls/hr Dextrose (Dextrose 5%) 1,000 mls @ 100 mls/hr IV CONT PRN PRN Reason: HYPOGLYCEMIA Stop: 04/20/17 18:30 Ceftriaxone Sodium 1,000 mg/ (Dextrose) 100 mls @ 200 mls/hr IVPB Q24H [facility] Stop: 04/20/17 22:01 Last Infusion: 10/19/16 23:11 Dose: Infused Insulin Detemir (Levemir) 12 unit 0.15 unit/kg (12 unit) SQ HS [facility] Stop: 04/21/17 21:01 Insulin Human Lispro (Humalog) 0 units SQ TIDAC SH[facility]HA PRN Reason: Protocol Stop: 04/21/17 07:31 Last Admin: 10/20/16 08:54 Dose: Not Given Insulin Human Lispro (Humalog) 0 units SQ HS [facility] PRN Reason: Protocol Stop: 04/20/17 21:01 Last Admin: 10/19/16 20:03 Dose: Not Given Levothyroxine Sodium (Synthroid) 112 mcg PO MOTUWETHFRSA [facility] Stop: 04/20/17 22:01 Last Admin: 10/19/16 22:13 Dose: Not Given Morphine Sulfate (Morphine Sulfate) 2 mg IVP Q4HR PRN PRN Reason: Severe Pain (7-10) Stop: 04/20/17 22:28 Naloxone HCl (Narcan) 0.4 mg IVP Q2MIN PRN PRN Reason: Opioid Reversal Stop: 04/20/17 22:28 Nitroglycerin (Nitroglycerin) 0.4 mg SL Q5MIN PRN PRN Reason: Chest Pain Stop: 04/20/17 22:28 Ondansetron HCl (Zofran) 4 mg IVP Q8HR PRN PRN Reason: Nausea And Vomiting Stop: 04/20/17 18:21 Oxycodone HCl (Roxicodone) 10 mg PO Q6HR PRN PRN Reason: Moderate Pain (4-6) Stop: 04/20/17 22:28 Pantoprazole Sodium (Protonix) 40 mg IVP DAILY [facility] Stop: 04/21/17 09:01 Last Admin: 10/20/16 09:01 Dose: 40 mg Pharmacy Profile Note (Patient Taking Own Medication) 0 each PO DAILY [facility] Stop: 04/21/17 09:01 Last Admin: 10/20/16 08:57 Dose: Not Given Pharmacy Profile Note (Patient Taking Own Medication) 0 each PO DAILY [facility] Stop: 04/21/17 09:01 Last Admin: 10/20/16 08:57 Dose: Not Given Pharmacy Profile Note (Patient Taking Own Medication) 0 each PO DAILY [facility] Stop: 04/21/17 09:01 Last Admin: 10/20/16 08:57 Dose: Not Given Pharmacy Profile Note (Patient Taking Own Medication) 0 each PO DAILY [facility] Stop: 04/21/17 09:01 Last Admin: 10/20/16 08:57 Dose: Not Given Potassium Chloride (Potassium Chloride) 20 meq PO DAILY [facility] Stop: 04/21/17 09:01 Last Admin: 10/20/16 09:01 Dose: 20 meq Simvastatin (Zocor) 20 mg PO DAILY [facility] Stop: 04/21/17 09:01 Last Admin: 10/20/16 09:01 Dose: 20 mg Simvastatin (Zocor) 40 mg PO HS [facility] Stop: 04/21/17 21:01 - Imaging and Cardiology Echo: pending, report reviewed Cardiac cath: pending Other Results: Telemetry reviewed. AVg HR=45 SB. Max pause 2.9 seconds nocturnal - EKG Interpretation EKG results cardiology: personally reviewed Consult Discharge Plan - Plan Referrals: Meño Marroquin DO [Primary Care Provider] - <Brooke Angulo - Last Filed: 10/20/16 11:01> Assessment and Plan Discussion w patient/family: The assessment and plan as outlined above was discussed with the patient and/or family members who expressed understanding and agreement. All questions were answered. Thank you for involving us in the care of your patient. Please call with any questions. History of Present Illness History of present illness: Ms. Brennan is a 71 year old female All Systems Review: A 10-system review of systems was performed and is negative for pertinent findings except as documented above in the HPI. Physical Examination Vital Signs, Last 4 Hours Temp Pulse BP Pulse Ox 10/20/16 10:37 45 112/55 96 10/20/16 08:50 98.3 F 43 112/48 94 L Results 10/20/16 06:34 10/20/16 06:34 Lab Results 10/19/16 10/19/16 10/20/16 21:15 22:28 06:34 WBC 9.8 Hgb 11.2 L D Hct 32.9 L Plt Count 154 APTT 57.1 H D Sodium Potassium Chloride Carbon Dioxide BUN Creatinine Glucose Calcium Magnesium Total Bilirubin AST ALT Alkaline Phosphatase Troponin I 10.25 H* B-Natriuretic Peptide TSH 10/20/16 10/20/16 10/20/16 06:34 06:34 06:34 WBC Hgb Hct Plt Count APTT Sodium 138 Potassium 3.5 Chloride 107 Carbon Dioxide 21 BUN 13 Creatinine 0.76 Glucose 123 H Calcium 8.1 L Magnesium 1.5 L Total Bilirubin 0.4 AST 33 ALT 14 Alkaline Phosphatase 66 Troponin I 9.68 H* B-Natriuretic Peptide 688 H TSH 0.997 10/20/16 06:34 WBC Hgb Hct Plt Count APTT 115.7 H* D Sodium Potassium Chloride Carbon Dioxide BUN Creatinine Glucose Calcium Magnesium Total Bilirubin AST ALT Alkaline Phosphatase Troponin I B-Natriuretic Peptide TSH - Attending Attestation I examined this patient and my medical decision-making was reviewed with the CORE PLACER/PA/Advanced Practice Nurse/Resident Physician. I agree with the documented findings, disposition and treatment plan. Ms. Brennan developed acute onset indigestion symptoms this past Friday which persisted for a few hours and resolved. She was feeling dizzy over the past few days and noticed that her heart rates were slower than usual which prompted ER evaluation. She was subsequently discovered to have elevated troponin of 10. She had no acute ECG findings. Her CV risk factors include DM, HTN, HPL, female gender and postmenopausal status. We have recommended proceeding with a LHC for NSTEMI. The R/B/A of the procedure were discussed with the patient who expressed understanding and verbalized agreement to proceed.
[2016-10-20] MEDS ORDERED: 0.9 % Sodium Chloride 1,000 ML ONE ×2 (11:15→12:56)
[2016-10-20] MEDS ORDERED: *HR* Heparin 10,000 UNIT/10 ML VIAL ONE (11:16)
[2016-10-20] MEDS ORDERED: Nitroglycerin 1,000 MCG/10 ML VIAL IV ONE (11:16)
[2016-10-20] MEDS ORDERED: Heparin 1,000 UNITS/500 mL NS 500 ML ONE ×2 (11:16→12:54)
[2016-10-20] MEDS ORDERED: *HR* FentaNYL (PF) 100 MCG/2 ML VIAL ONE (11:46)
[2016-10-20] MEDS ORDERED: *HR* Midazolam HCl 2 MG/2 ML VIAL ONE (11:46)
--- NOTE | 2016-10-20 11:56 | Pre-Sedation Evaluation ---
Pre-sedation evaluation - Pre-sedation checklist Date of procedure: 10/20/16 Procedure: Left heart catheterization Recent Vitals: Last Vital Signs Temp 98.3 F 10/20/16 08:50 Pulse 45 10/20/16 10:37 Resp 14 10/20/16 03:36 BP 112/55 10/20/16 10:37 Pulse Ox 96 10/20/16 10:37 H&P (including ROS) documented in medical record: Yes Previous reaction to sedatives/anesthetics: No Dietary Status: Clear fluids after Midnight Dentition: dentures removed Possible difficult airway: No ASA Classification *see protocol: CLASS II-Mild systemic disease Plan of Care: Pt appropriate candidate for procedure/moderate/conscious sedation , Risks/benefits of procedure/sedation discussed w/ patient/family, If not NPO; Risk of intake outweiged by necessity to perform procedure
--- NOTE | 2016-10-20 12:25 | ECHO - Doppler Report ---
Echocardiogram Name: Doris Brennan Date of Study: 10/20/2016 Date: 1945 Ht: 61.0 in Medical Record#: [id number] Age: 71 Wt: 175.0 lb Gender: Female BSA: 1.78 Order #: [id number] Location: [facility] Room #: 2n05 Reading Physician: Brooke Angulo DO Color Expert: Tylor Spencer RDCS Ordering Physician: Panfilo Calvert MD Primary Physician: None Indications: Chest pain Impressions: LVEF 55%. Wall motion abnormalities (see diagram below). Normal left ventricular size and systolic function. Normal right ventricular size and function. Moderate, somewhat eccentric mitral regurgitation. No pulmonary hypertension. Left Ventricular Wall Motion: Rest Echo Findings The mid inferior and basal inferior norwood were hypokinetic. All other wall segments showed normal motion. Findings: Study Quality * Technically adequate exam. ECG Findings * Sinus bradycardia. Left Ventricle * LVEF 55%. * Normal LV chamber size, wall thickness and function. * Probably pseudonormal LV diastolic dysfunction. Mitral Valve * Normal mitral valve structure. * No mitral stenosis. * Moderate eccentric mitral regurgitation. Aortic Valve * No aortic regurgitation. * Aortic valve not well visualized. * No aortic stenosis. Tricuspid Valve * Tricuspid valve not well visualized. * Trace tricuspid regurgitation. * Estimated RA pressure is 3 mmHg. * Estimated RVSP is 32 mmHg. * No pulmonary hypertension. Pulmonic Valve * Pulmonic valve is not well visualized. * No pulmonic stenosis. * Trace pulmonic regurgitation. Pulmonary Artery * Pulmonary artery not well visualized. Right Ventricle * Normal right ventricular structure and function. Right Atrium * Normal right atrial size. Interatrial Septum * No evidence of PFO by color Doppler. IVC * The IVC is not dilated. Pericardium * There is no pericardial effusion present. Left Atrium * Moderately dilated left atrium. History Hypertension Diabetes Hypercholesteremia 07/26/14 a Previous Echo was performed. Measurements: BP: 105/ 49 2D Normal Values RVIDd: 2.90 cm <2.7 cm IVSd: .90 cm 0.6 - 1.0 cm LVIDd: 4.70 cm 3.7 - 5.6 cm LVPWd: .80 cm 0.6 - 1.1 cm LVIDs: 3.30 cm 1.5 - 3.6 cm AO: 2.50 cm < 4.0 cm LA: 3.70 cm 2.0 - 4.0cm %FS: 29.80 cm >25 % LA volume: 63 Mitral Valve Peak E:1.61 m/sec Peak A:.93 m/sec E/A Ratio:1.7 Peak E' Lat Sergey:10.2 cm/s Peak E' Med Sergey:10.4 cm/s E/E' Lat Ratio:15.8 E/E' Med Ratio:15.5 Tricuspid Valve TV Regurg Peak Grad: 29.00mmHg TV Regurg Peak Sergey: 2.68m/sec Updated by Brooke Angulo on 10/20/2016 12:18:15 PM electronically signed on 10/20/2016 12:19:21 PM with status of Final Wall Motion Coe: 1=Normal, 2=Hypokinesis, 3=Akinesis, 4=Dyskinesis, 5=Aneurysmal, 6=Hyperkinetic, X=Not Visualized (Blank)=Missing
[2016-10-20] MEDS ORDERED: *HR* Bivalirudin 250 MG VIAL IVC ONE (12:46)
[2016-10-20] MEDS ORDERED: *HR* Atropine Sulfate 1 MG/10 ML SYRINGE ONE (13:28)
--- NOTE | 2016-10-20 13:31 | Internal Med Progress Note ---
Date of Encounter: 10/20/16 Time of Encounter: 09:00 - Assessment and plan (1) NSTEMI (non-ST elevated myocardial infarction) Current Visit: Yes Status: Acute Assessment and plan: Patient has no chest pain now. On heparin drip. Plan for catheterization (2) DVT prophylaxis Current Visit: Yes Status: Acute Assessment and plan: Patient is on heparin drip (3) Bradycardia Current Visit: Yes Status: Acute Assessment and plan: Asymptomatic. Hold the beta ankit. Continue close monitoring (4) Diabetes Current Visit: Yes Status: Acute Assessment and plan: Continue basal and sliding scale insulin Qualifiers: Diabetes mellitus type: type 2 Diabetes mellitus complication status: without complication Diabetes mellitus skilled nursing insulin use: without termite helper use Qualified Code(s): E11.9 - Type 2 diabetes mellitus without complications (5) Hypothyroid Current Visit: Yes Status: Acute Assessment and plan: Continue Synthroid Qualifiers: Hypothyroidism type: unspecified Qualified Code(s): E03.9 - Hypothyroidism , unspecified - Subjective Interval history: Patient is a 18-year-old female admitted for chest pain with elevated troponin. Diagnosed as NSTEMI. Past medical history is significant for malignant melanoma, diabetes, hyperlipidemia, hypertension, kidney stone, thyroid disease. She was seen and examined. She is awake alert, oriented 3. No chest pain when I saw her. No shortness of breath. Vitals are stable, still bradycardia with a heart rate of 40-50, patient had no symptoms. On heparin drip, plan for cardiac catheterization today. - Constitutional Vitals: Temp Pulse Resp BP Pulse Ox 98.3 F 45 14 112/55 96 10/20/16 08:50 10/20/16 10:37 10/20/16 03:36 10/20/16 10:37 10/20/16 10:37 General appearance: Present: A&O X 3, pleasant, no acute distress, answers questions appropriately - Head Head exam: Present: atraumatic, normocephalic - Eye Eye exam: Present: PERRL, conjuntiva pink, sclera anicteric Pupils: Present: PERRL - Neck Neck exam general surgery: Present: supple, trachea midline. Absent: lymphadenopathy - Respiratory Respiratory exam: Present: CTAB. Absent: accessory muscle use, rales, rhonchi, wheezes - Cardiovascular Cardiovascular exam: Present: RRR, +S1, +S2. Absent: diastolic murmur, gallop, rubs, systolic murmur - GI/Abdominal GI/Abdominal exam: Present: normal bowel sounds, soft, no peritoneal signs. Absent: distended, tenderness - Extremities Exam Extremities exam: Present: warm, radial pulses palpable and symetrical. Absent : calf tenderness, cyanotic, pedal edema - Neurological Exam Neurological exam: Present: CN II-XII intact, oriented X3, no focal deficits. Absent: pronater drift, facial droop, speech deficit - Skin Skin exam: Present: dry, intact Internal Medicine: Result - Labs CBC & Chem 7: 10/20/16 06:34 10/20/16 06:34 Labs: Short CBC 10/20/16 Range/Units 06:34 WBC 9.8 (4.3-11.1) K/mcL Hgb 11.2 L D (11.5-15.4) g/dL Hct 32.9 L (35.3-44.9) % Plt Count 154 (140-400) K/mcL Neutrophils # 6.2 (1.6-8.9) K/mcL BMP 10/20/16 06:34 Sodium 138 Potassium 3.5 Chloride 107 Carbon Dioxide 21 BUN 13 Creatinine 0.76 Glucose 123 H Calcium 8.1 L Cardiac Enzymes 10/19/16 10/20/16 Range/Units 21:15 06:34 Troponin I 10.25 H* 9.68 H* (0-0.03) ng/mL Liver Function 10/20/16 Range/Units 06:34 Total Bilirubin 0.4 (0.2-1.2) mg/dL Direct Bilirubin 0.2 (0.0-0.5) mg/dL AST 33 (5-34) Units/L ALT 14 (0-55) Units/L Alkaline Phosphatase 66 (38-126) Units/L Albumin 2.6 L (3.5-5.0) g/dL Urine 10/19/16 Range/Units 20:55 Urine Color Yellow (Yellow) Urine Clarity Cloudy A (Clear) Urine pH 6.0 (5.0-8.0) pH Units Ur Specific [place] 1.013 (1.010-1.025) Urine Protein Negative (Neg-Trace) mg/dL Urine Glucose (UA) Normal (Normal) mg/dL - ABG Interpretation ABG results: PT/INR, D-dimer PT 12.4 Seconds (9.4-12.1) H 10/19/16 14:21 - VTE Documentation of Mechanical Device: Venous foot pump, device Consult Discharge Plan - Plan Referrals: Meño Marroquin DO [Primary Care Provider] -
--- NOTE | 2016-10-20 14:00 | Invasive Diagnostic Lab Proc ---
Name: Doris Brennan Date of Study: 10/20/2016 Date: 1945 Ht: 61.0in Medical Record#: [id number] Age: 71 Wt: 176.37lb Gender: Female BSA: 1.79 Order #: [id number] BMI: 33.3 Physicians Procedure Physician: Alex Cisneros MD Referring MD: Meño Marroquin DO Referring MD: Staff Name Position Time In Keenan Miles RN Monitor 11:54 AM Indications Indication Non-Stemi Procedures Performed Procedure L HRT ARTERY/VENTRICLE ANGIO INS/RPL TEMP PM LEAD/CATH;SNGL Pre-Procedure Checklist Informed consent is complete signed and on chart. H\\T\\P is on chart. ID band is on and ID verified with patient. Patient NPO for procedure The procedure was described for the patient and questions were answered. Blood Pressure: 112/55 ECG is on chart. Rhythm: Sinus Bradycardia Plan of Care Patient will tolerate the procedure without complications. Adequate level of comfort will be maintained. Hemodynamics will remain stable Patient will recover from procedure without complications. Respiratory function will be maintained. Cardiac rhythm will remain stable. Patient temperature will be maintained. Patient and/or family have verbalized understanding of the procedure. Patient Education Chief Complaint/Reason for Test: Cardiac Cath Developmental Category: Geriatric (65+ years) Developmentally Appropriate for Age: Yes Learning Barriers: None Education Needs: Procedure Education Method: Verbal Information Taught: Cardiac Cath Educational Evaluation: Able to repeat information Intravenous Access Time IV Size Location DC'd Fluid/Drip Rate Units RN 11:21 AM 18g 1 1/4" Patent On Arrival Lt Wrist Keenan Miles RN 11:22 AM 20g 1 1/4" Patent On Arrival Lt Hand Keenan Miles RN 11:22 AM 18g 1 1/4" Patent On Arrival Lt Antecubital 0.9NaCl 25 ml/hr Keenan Miles RN Allergies Metamucil Vital Signs Time BP (mmHg) HR (bpm) O2 Sat. RR (bpm) LOC 11:17 AM 112 / 55 45 96 % 14 5 = Fully awake and oriented or at pre-proc level 11:56 AM / % 5 = Fully awake and oriented or at pre-proc level 11:56 AM / % 4 = Oriented but drowsy 12:11 PM / % 4 = Oriented but drowsy 12:26 PM / % 4 = Oriented but drowsy 12:41 PM / % 4 = Oriented but drowsy 12:59 PM / % 4 = Oriented but drowsy 01:14 PM / % 4 = Oriented but drowsy 12:30 PM 112 / 43 39 95 % 23 12:31 PM 109 / 53 35 94 % 16 12:35 PM 107 / 41 50 96 % 22 12:40 PM 106 / 58 76 94 % 17 12:45 PM 109 / 57 60 96 % 13 12:50 PM 103 / 60 59 96 % 19 12:55 PM 112 / 60 66 95 % 19 01:01 PM 120 / 55 60 91 % 17 01:05 PM 124 / 61 60 96 % 19 01:11 PM 117 / 58 60 95 % 19 11:55 AM 134 / 65 49 95 % 10 12:00 PM 117 / 56 43 92 % 20 12:06 PM 116 / 59 46 97 % 21 12:09 PM 112 / 53 50 95 % 16 12:15 PM 109 / 53 48 95 % 17 12:20 PM 114 / 59 50 95 % 20 12:25 PM 91 / 53 49 96 % 17 12:26 PM 111 / 57 47 95 % 13 01:15 PM 122 / 62 59 94 % 16 01:20 PM 129 / 60 60 93 % 19 01:25 PM 141 / 64 60 95 % 17 01:30 PM 152 / 71 60 91 % 18 01:29 PM / % 5 = Fully awake and oriented or at pre-proc level Procedural Medications Time Medication Dose Units Method Given By 11:55 AM Oxygen 2 L/min nasal cannula Bhumika Matias RN 11:56 AM Versed 1 mg Intravenous Bhumika Matias RN 11:56 AM Fentanyl 50 mcg Intravenous Bhumika Matias RN 12:02 PM Oxygen 4 L/min nasal cannula Bhumika Matias RN 12:05 PM Lidocaine 2% 16 ml Subcutaneous Alex Cisneros MD 12:08 PM Nitroglycerin 200 mcg Intracoronary Alex Cisneros MD 12:37 PM Atropine 0.5 mg Intravenous Bhumika Matias RN 12:43 PM Angiomax 0.75mg/kg bolus: 12 ml Intravenous Bhumika Matias RN 12:45 PM Angiomax 1.75mg/kg/hr: 28 ml Intravenous Bhumika Matias RN 12:39 PM Lidocaine 2% 12 ml Subcutaneous Alex Cisneros MD 01:24 PM Oxygen 6 L/min nasal cannula Bhumika Matias RN ASA Classification: CLASS II- Mild systemic disease (i.e. well-controlled diabetes, hypertension, asthma, cigarette smoking) Ezekiel Score Preprocedure Postprocedure Activity 2- Moves 4 extremities sustained head lift Activity Circulation 2- SBP +/= 20 points of pre-anesthetic level Circulation Consciousness 2- Awake and alert oriented x 3 Consciousness O2 Saturation 2- Able to maintain O2 satruation of 92% on room air O2 Saturation Respiratory 2- Able to deep breathe and cough well Respiratory Total Score 10 Total Score Contrast Agent: Isovue Diagnostic Contrast: 449 ml Total Contrast: 449 ml Fluoro Dose: 3131 mGy Procedure Log Time Note Enter By 11:16 AM CathStat 11:54 AM 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 Bilateral groin prepped with Chloraprep by Cristal Thacker RT (R) then patient draped. Skin intact. [facility] AM Phys[facility] arrived 11:54 [facility] 11:54 AM ASA Class II [facility] 11:54 AM Meet and greet completed [facility] 11:54 AM Sign in performed according to hospital policy. [facility] 11:[facility] AM Vitals capture started with the following parameters, Patient=Adult, Interval=5 min, Initial Opecdiot=366 mmHg, Deflation Rate=5 mmHg, Cuff placed on Right Arm 11:55 AM HR=49 bpm, KRSY=265/65 mmhg, SpO2=95.0 %, Resp=10 B/min, Comment=SB 11:55 AM Time: : Oxygen on at 2 L/min per nasal cannula by Bhumika Matias RN [facility] : AM Time: : Patient comfortable and pain free: Yes [facility] :56 AM Time: :56LOC: 5 = Fully awake and oriented or at pre-proc level [facility] :56 AM Time: :56 Versed 1 mg Intravenous Given by Bhumika Matias RN [facility] : AM Time: 11:56 Fentanyl 50 mcg Intravenous Given by Bhumika Matias RN [facility] 12:00 PM HR=43 bpm, RKRQ=168/56 mmhg, SpO2=92.0 %, Resp=20 B/min, Comment=SB 12:02 PM Time: 12:02 Oxygen on at 4 L/min per nasal cannula by Bhumika Matias RN [facility] 12:03 PM Pressure channel 1 zeroed. 12:05 PM Time out performed according to hospital policy [facility] 12:06 PM HR=46 bpm, JTAJ=015/59 mmhg, SpO2=97.0 %, Resp=21 B/min, Comment=SB 12:06 PM Time: 12:05 16 ml Lidocaine 2% to right groin Subcutaneous Given by Alex Cisneros MD [facility] 12:06 PM Access obtained by percutaneous puncture. 6Fr 11cm Terumo Whitewright sheath placed in right Femoral artery. [id number] [facility] 12:06 PM 0.035 145cm Navilyst 3mmJ wire [id number] [facility] 12:06 PM 5Fr FL 4 catheter inserted over the wire [facility] 12:07 PM LCA angiography performed in multiple views. [facility] 12:07 PM Recorded Pressure: Ao, HR=47, Condition=Condition 1 (Aorta) Ao 111/48/72 12:08 PM Time: 12:08 Nitroglycerin 200 mcg Intracoronary Given by Alex Cisneros MD [facility] 12:09 PM Lesion found in Proximal LAD. Pre Stenosis: 50 Pre AYDE Flow: [facility] 12:09 PM NIBP STAT measurement started. 12:09 PM Coronary Dominance: right [facility] 12:09 PM HR=50 bpm, XKLY=667/53 mmhg, SpO2=95.0 %, Resp=16 B/min, Comment=SB 12:10 PM Catheter removed [facility] 12:10 PM 5Fr FR 4 [facility] Lesion found in 1st Marginal. Pre Stenosis: 20 Pre AYDE Flow: [facility] 12:10 PM Lesion found in Proximal Circumflex. Pre Stenosis: 20 Pre AYDE Flow: [facility] 12:11 PM Time: 11:56 Patient comfortable and pain free: Yes [facility] 12:11 PM Time: 11:56LOC: 4 = Oriented but drowsy [facility] 12:11 PM Recorded Pressure: Ao, HR=51, Condition=Condition 1 (Aorta) Ao 100/54/74 12:12 PM Recorded Pressure: Ao, HR=51, Condition=Condition 1 (Aorta) Ao 99/49/70 12:13 PM Catheter removed [facility] 12:13 PM 5Fr AL1 catheter inserted over the wire [id number] [facility] 12:15 PM HR=48 bpm, NFEJ=847/53 mmhg, SpO2=95.0 %, Resp=17 B/min, Comment=SB 12:16 PM Catheter removed [facility] 12:16 PM 6Fr AL1 Runway guide catheter was used to cannulate the PCI vessel successfully. reused? No [facility] 12:18 PM RCA difficult to engage, views of RCA suboptimal at this time, attempting to get improved view [facility] 12:20 PM Catheter removed [facility] 12:20 PM 6Fr AL2 Runway guide catheter was used to cannulate the PCI vessel successfully. reused? No [facility] 12:20 PM HR=50 bpm, LAQJ=457/59 mmhg, SpO2=95.0 %, Resp=20 B/min, Comment=SB 12:25 PM HR=49 bpm, NIBP=91/53 mmhg, SpO2=96.0 %, Resp=17 B/min, Comment=SB 12:25 PM NIBP STAT measurement started. 12:26 PM Time: 12:11LOC: 4 = Oriented but drowsy [facility] 12:26 PM Time: 12:11 Patient comfortable and pain free: Yes [facility] 12:26 PM HR=47 bpm, MWTH=093/57 mmhg, SpO2=95.0 %, Resp=13 B/min, Comment=SB 12:28 PM Catheter removed [facility] 12:29 PM Recorded Pressure: LV, HR=50, Condition=Condition 1 (Left Ventricle) LV 107/8/23 12:30 PM 5Fr Pigtail catheter inserted over the wire DNC csmith 12:30 PM Catheter selectively placed in left ventricle c[facility] 12:30 PM HR=39 bpm, MXKR=175/43 mmhg, SpO2=95.0 %, Resp=23 B/min, Comment=SB 12:30 PM Bolus angiogram of left Ventricle complete: 12 ml/sec for a total of 36 mls csmith 12:31 PM NIBP STAT measurement started. 12:31 PM HR=35 bpm, UPIN=317/53 mmhg, SpO2=94.0 %, Resp=16 B/min, Comment=SB 12:31 PM Bolus angiogram of Aortic root complete: 20 ml/sec for a total of 40 mls [facility] 12:32 PM Catheter removed [facility] 12:35 PM HR=50 bpm, MUHX=539/41 mmhg, SpO2=96.0 %, Resp=22 B/min, Comment=SB 12:37 PM Time: 12:37 Atropine 0.5 mg Intravenous Given by Bhumika Matias RN [facility] 12:38 PM pt with intermittent bradycardia during and after LV, ? 3rd degree heart block [facility] 12:39 PM PstProc: Temp pacer on. [facility] 12:39 PM PstProc: Temp pacer turned on, rate 60 ppm, mA 4, sensitivity 2mV [facility] 12:39 PM PstProc:Bard Bipolar Pacing Catheter Temp pacer inserted into right femoral vein [facility] 12:39 PM Time: 12:39 12 ml Lidocaine 2% to right groin Subcutaneous Given by Alex Cisneros MD [facility] 12:40 PM HR=76 bpm, PVEE=760/58 mmhg, SpO2=94.0 %, Resp=17 B/min, Comment=VPACED 12:40 PM Access obtained by percutaneous puncture. 6Fr 10cm Locking sheath placed in right Femoral vein. [id number] [facility] 12:41 PM Time: 12:26 Patient comfortable and pain free: Yes [facility] 12:41 PM Time: 12:26LOC: 4 = Oriented but drowsy [facility] 12:43 PM Time: 12:43 Angiomax 0.75mg/kg bolus: 12 ml Intravenous Given by Bhumika Matias RN IVP [facility] 12:43 PM 6Fr XB LAD 3.5 Cordis guide catheter was used to cannulate the PCI vessel successfully. reused? No [facility] 12:43 PM .014 Whisper 180cm guide wire across target lesion- successful. reused? No [facility] 12:43 PM Inflation device was opened. [facility] 12:44 PM RCA angiography performed in multiple views. [facility] 12:45 PM HR=60 bpm, OBYK=882/57 mmhg, SpO2=96.0 %, Resp=13 B/min, Comment=V paced 12:46 PM Time: 12:45 Angiomax 1.75mg/kg/hr: 28 ml Intravenous Given by Bhumika Matias RN Salvador pump [facility] 12:50 PM HR=59 bpm, TMEJ=706/60 mmhg, SpO2=96.0 %, Resp=19 B/min, Comment=V paced 12:52 PM [facility] 12:52 PM Catheter removed [facility] 12:52 PM 6Fr XB4.0 Cordis guide catheter was used to cannulate the PCI vessel successfully. reused? No [facility] 12:53 PM Recorded Pressure: Ao, HR=59, Condition=Condition 1 (Aorta) Ao 122/56/81 12:53 PM Lesion found in Mid RCA. Pre Stenosis: 99 Pre AYDE Flow: 1: Slow Penetration without Perfusion csmith 12:55 PM HR=66 bpm, EKAH=304/60 mmhg, SpO2=95.0 %, Resp=19 B/min, Comment=V paced 12:59 PM Time: 12:41LOC: 4 = Oriented but drowsy [facility] 12:59 PM Time: 12:41 Patient comfortable and pain free: Yes [facility] 12:59 PM wire removed, xblad 3.5 reinserted csmith 01:01 PM HR=60 bpm, RRUR=256/55 mmhg, SpO2=91.0 %, Resp=17 B/min, Comment=V paced 01:01 PM new whisper wire inserted, 0.014 180cm csmith 01:05 PM HR=60 bpm, HTUK=424/61 mmhg, SpO2=96.0 %, Resp=19 B/min, Comment=V paced 01:07 PM wire removed to reshape csmith 01:07 PM wire reinserted csmith 01:11 PM HR=60 bpm, CPZY=318/58 mmhg, SpO2=95.0 %, Resp=19 B/min, Comment=V paced 01:14 PM Time: 12:59LOC: 4 = Oriented but drowsy [facility] 01:14 PM Time: 12:59 Patient comfortable and pain free: Yes [facility] 01:15 PM HR=59 bpm, XHNX=024/62 mmhg, SpO2=94.0 %, Resp=16 B/min, Comment=V paced 01:15 PM continuing to attempt to wire RCA csmith 01:17 PM whisper out csmith 01:19 PM .014 Kinetix Plus 184cm guide wire across target lesion- successful. reused? No [facility] 01:20 PM HR=60 bpm, PAPG=402/60 mmhg, SpO2=93.0 %, Resp=19 B/min, Comment=V paced 01:24 PM Time: 13:24 Oxygen on at 6 L/min per nasal cannula by Bhumika Matias RN [facility] 01:25 PM wire removed [facility] 01:25 PM HR=60 bpm, BRXD=944/64 mmhg, SpO2=95.0 %, Resp=17 B/min, Comment=V paced 01:25 PM .014 Choice floppy (LS) 300cm guide wire across target lesion- successful. reused? No csmith 01:27 PM choice floppy wire removed csmith 01:29 PM Time: 13:14 Patient comfortable and pain free: Yes [facility] 01:29 PM Time: 13:14LOC: 4 = Oriented but drowsy [facility] 01:30 PM HR=60 bpm, XQWW=560/71 mmhg, SpO2=91.0 %, Resp=18 B/min, Comment=V paced 01:32 PM wire removed csmith 01:32 PM catheter removed [facility] 01:34 PM Procedure completed at 13:34 csmith 01:36 PM Sign out completed: Radiation Dose 3131 mGy Fluoro Time: 36.5 Isovue 370 - 200ml contrast 449 ml given by Alex Cisneros MD. Complications: NoneCardiac Rehab Consult needed: YesConfirmed administered medications: Yes csmith 01:38 PM Sheath left in place to be pulled on floor/holding area csmith 01:38 PM venous sheath sutured in place csmith 01:38 PM Post ECG Paced csmith 01:38 PM Post Blood Pressure 161/77 csmith 01:38 PM 13:38 Post Pulses Bilateral DP 2+ csmith 01:38 PM Information taught Cardiac Cath csmith 01:39 PM Education needs Responsibilities of Patient in Care csmith 01:39 PM Learning barriers :None csmith 01:39 PM Education Methods Verbal csmith 01:39 PM Education evaluation Able to repeat information csmith 01:39 PM Site status No bleeding/hematoma - Rt Groin as reported by Cristal Thacker RT (R) at 13:39 csmith 01:39 PM Opsite applied csmith 01:39 PM Plavix, Effient or Brilinta given No c[facility] 01:40 PM PstProc: Pacer is inserted at 65 cm csmith 01:[address] cisneros consulting with dr. dockery on POC csmith 01:44 PM Time: 13:29LOC: 5 = Fully awake and oriented or at pre-proc level [facility] 01:44 PM Time: 13:29 Patient comfortable and pain free: Yes csmith 01:47 PM Family placed in consult room. csmith 01:48 PM Angiomax stopped at this time csmith 01:56 PM Patient out of room: 13:56 csmith 01:56 PM Report given to SIGNS SALES REPRESENTATIVE Pt taken to ICU Room #9. 13:56 csmith Complications Complication None Hemodynamics Pressures Site Systolic/A Wave Diastolic/V Wave Mean AO 111 48 72 AO 100 54 74 AO 99 49 70 LV 107 8 23 AO 122 56 81 Post Procedure Information Blood Pressure: 161/77 mmHg Rhythm: Paced Post procedural instructions were given Closure Device Time Device Success/Fail Manual Compression Site Checks Time Location Status Staff Sheath In? Note 01:39 PM Rt Groin No bleeding/hematoma Cristal Thacker RT (R) Pulses Time Site Pre-Procedure Post-Procedure Note 10/20/2016 11:23:00 AM Bilateral DP 2+ 10/20/2016 11:23:00 AM Bilateral radial 2+ 1:38:00 PM Bilateral DP 2+ Updated by Keenan Miles RN on 10/20/2016 1:57:00 PM electronically signed on 10/20/2016 1:57:28 PM with status of Final
--- NOTE | 2016-10-20 14:03 | Invasive Diagnostic Lab ---
Name: Doris Brennan Date of Study: 10/20/2016 Date: 1945 Ht: 155.0 cm /61.0 in Medical Record#: [id number] Age: 71 Wt: 80. kg / 176.37 lb Account/Order#: [id number] Gender: Female BSA: 1.79 Order #: [id number] Fluoro Dose: 3131 mGy BMI: 33.3 Procedure Physician: Alex Ruggiero MD Referring MD: Meño Marroquin DO Referring MD: Procedures Performed: LEFT HEART CATH TEMP PM INSERTION - SINGLE Indications: Non-Stemi Impressions: There is severe one vessel coronary artery disease. The left ventricle is normal and has normal contractility EF 55% Anamalous RCA origin from the left cusp. Recommendations: Optimal medical therapy of patient's disease. Aggressive risk factor modification. History/Risk Factors: Bradycardia NSTEMI DM HPTN Hypothyroidism Hyperparathyroidism Hypokalemia UTI URI Osteoporosis Renal calculi Procedure Access obtained in the right Femoral vein by percutaneous puncture A 6 Romanian venous sheath was inserted into the right femoral vein. A 5 Romanian balloon tipped temporary transvenous pacemaker catheter was passed to the apex of the right ventricle under fluoroscopic guidance. Complications: None Contrast: Isovue 449ml Closure Device: Manual Compression Hemodynamics: Pressures Site Systolic/ A Wave Diastolic/ V Wave End Diastolic/ Mean HR AO 111 48 72 47 AO 100 54 74 51 AO 99 49 70 51 LV 107 8 23 50 AO 122 56 81 59 LV Ventriculography Ejection Method: LV Gram Ejection Fraction: 55% Wall Motion: ALBA Anterobasal Normal Anterolateral Normal Apical: Normal Inferoapical Normal Inferobasal Severe Hypokinesis Coronary Dominance: right Lesion Findings/Interventions * Left Main Coronary Artery The LMCA is angiographically free of disease. * Left Anterior Descending There is a 50% stenosis in the Proximal LAD. * Circumflex There is a 20% stenosis in the Proximal Circumflex. There is a 20% stenosis in the 1st Marginal. * Right Coronary Artery There is a 90% stenosis in the Mid RCA. The lesion has a AYDE flow of 3. Updated by Keenan Miles RN on 10/20/2016 1:53:39 PM Alex Ruggiero MD electronically signed on 10/20/2016 1:58:45 PM with status of Final
[2016-10-20] MEDS: 0.9 % Sodium Chloride 1,000 ML IVC SCH ×2 (16:13→19:33)
[2016-10-20] MEDS: Heparin 25,000 UNIT/500 ML D5W 25,000 UNIT/500 ML MLS IVC SCH (16:14)
[2016-10-20] MEDS: Insulin DETEMIR 100 UNIT/ML X5UNITS SQ SCH (19:41)
[2016-10-21 03:09] LABS: Basophils % 0.1 %; Eosinophils % 0.2 %; Hematocrit 32.6 % (35.3-44.9); Hemoglobin 10.9 g/dL (11.5-15.4); Immature Granulocytes % 0.2 % (0-4); Immature Platelets 2.2 % (1.1-6.1); Lymphocytes % 20.1 %; Mean Corpuscular HGB Conc 33.4 g/dL (31.6-35.5); Mean Corpuscular Hemoglobin 31.8 pg (28.0-33.3); Monocytes # 0.7 K/mcL (0.0-1.3); Monocytes % 7.5 %; Neutrophils # 7.1 K/mcL (1.6-8.9); Platelet Count 171 K/mcL (140-400); Red Blood Count 3.43 M/mcL (3.82-4.97); Red Cell Distribution Width 13.2 % (11.5-14.5); Segmented Neutrophils % 71.9 %
[2016-10-21 03:25] LABS: BUN/Creatinine Ratio 13 (6-26); Blood Urea Nitrogen 10 mg/dL (7-20); Calcium 7.9 mg/dL (8.6-10.8); Carbon Dioxide 20 mEq/L (19-29); Chloride 110 mEq/L (98-109); Glucose 121 mg/dL (70-99); Osmolality,Calculated 286 (280-300); Potassium 3.3 mEq/L (3.5-4.5); Sodium 138 mEq/L (136-145); eGFR For African Americans > 60 (> 60); eGFR For Non-African Americans > 60 (> 60)
[2016-10-21] MEDS: 0.9 % Sodium Chloride 1,000 ML IVC SCH ×4 (03:32→20:35)
[2016-10-21] MEDS: Insulin LISPRO 300 UNITS/3 ML VIAL SQ SCH ×4 (07:29→20:35)
[2016-10-21] MEDS: (Fish Oil 1,000 Mg Softgel) PO SCH (07:29)
[2016-10-21] MEDS: LUTEIN 6 MG PO SCH (07:29)
[2016-10-21] MEDS: [UNRECOGNIZED DRUG - OTHER] PO SCH (07:29)
[2016-10-21] MEDS: BETA CAROTENE 10000 UNIT PO SCH (07:29)
[2016-10-21] MEDS: Pantoprazole 40 MG VIAL IVP SCH (08:41)
[2016-10-21] MEDS: Cyanocobalamin (B-12) 1,000 MCG TABLET PO SCH (08:41)
[2016-10-21] MEDS: Aspirin 81 MG TAB.CHEW PO SCH (08:42)
[2016-10-21] MEDS ORDERED: Potassium Chloride 40 MEQ, Lidocaine 1% 2 ML in D5% in Water 500 ML IVPB ONE (09:53)
--- NOTE | 2016-10-21 09:53 | Cardiology Progress Note ---
Date of Encounter: 10/21/16 Time of Encounter: 09:00 Assessment and Plan (1) NSTEMI (non-ST elevated myocardial infarction) Current Visit: Yes Status: Acute Peak troponin 10.25, ischemic inferior ECG changes Suspect event last Friday. Risk factors for CAD: HTN, HLD, DMII, and positive family history. 10/20/16 LHC: severe 1v CAD, anamalous RCA origin from Left cusp; 50% pLAD, 20% pLCx, 90% mRCA stenosis. Transvenous temporary pacer inserted d/t complete heart block. 10/20/16 TTE: EF 55% with mid inferior/basal inferior hypokinesis, moderate MR Reviewed angiogram with Dr. Carpenter; plan for repeat C tomorrow or Friday for PCI of RCA. She remains dependent on pacer--underlying rhythm=complete heart block, rate 30' s. Will consult CT surgery to determine if RCA can be bypassed due to anamalous origin. Denies events overnight. Kidney function remains stable, recheck in AM. Continue asa and statin. No betablocker due to heart block. (2) Bradycardia Current Visit: Yes Status: Acute Plan as above. Now with complete heart block. Discussion w patient/family: The assessment and plan as outlined above was discussed with the patient and/or family members who expressed understanding and agreement. All questions were answered. Thank you for involving us in the care of your patient. Please call with any questions. The patient will be discussed and reviewed with Dr. Benavides; changes to be made accordingly. Subjective Principal diagnosis: NSTEMI Interval history: Seen and examined with Dr. Benavides Denies chest pain, discomfort, or indigestion overnight. Denies shortness of breath. Transvenous pacer to right groin. Rate=60 Objective Vital Signs, Last 4 Hours Temp Pulse Resp BP Pulse Ox 10/21/16 08:52 60 10/21/16 08:00 99.0 F 59 18 131/72 94 L 10/21/16 07:32 100.1 F H 10/21/16 07:00 59 20 132/65 94 L 10/21/16 06:00 59 20 120/59 96 General: Conversant, No Apparent Distress HEENT: Atraumatic, Normocephaly, Mucus Membranes Moist Cardiac: Reg Rate and Rhythm, Normal S1 and S2 Lungs: Normal Breath Sounds Neuro: Alert and responsive Abdomen: Soft Skin: No rashes noted on visualized skin Musculoskeletal: No Chest Wall Tenderness Extremities: No Edema, Normal Pulses Results 10/21/16 03:00 10/21/16 03:00 Lab Results 10/21/16 10/21/16 03:00 03:00 WBC 9.9 Hgb 10.9 L Hct 32.6 L Plt Count 171 Sodium 138 Potassium 3.3 L Chloride 110 H Carbon Dioxide 20 BUN 10 Creatinine 0.78 Glucose 121 H Calcium 7.9 L Active Medications Acetaminophen (Tylenol) 650 mg PO Q6HR PRN PRN Reason: Mild Pain (1-3) Stop: 04/20/17 18:21 Last Admin: 10/21/16 00:30 Dose: 650 mg Aspirin (Aspirin) 81 mg PO DAILY SHOBHA Stop: 04/22/17 09:01 Last Admin: 10/21/16 08:42 Dose: 81 mg Atorvastatin Calcium (Lipitor) 40 mg PO HS SHOBHA Stop: 04/21/17 21:01 Last Admin: 10/20/16 19:40 Dose: 40 mg Atropine Sulfate (Atropine) 0.5 mg IVP ONCE PRN PRN Reason: Bradycardia Stop: 04/20/17 18:28 Calcium Carbonate (Tums) 500 mg PO BID SHOBHA Stop: 04/21/17 09:01 Last Admin: 10/21/16 08:42 Dose: 500 mg Cyanocobalamin (Vitamin B12) 1,000 mcg PO DAILY SHOBHA Stop: 04/21/17 09:01 Last Admin: 10/21/16 08:41 Dose: 1,000 mcg Dextrose/Water (Dextrose 50% (Syg)) 25 ml IVP AD PRN PRN Reason: Hypoglycemia Stop: 04/20/17 18:30 Docusate Sodium (Colace) 100 mg PO BID PRN PRN Reason: Constipation Stop: 04/20/17 22:28 Glucagon (Glucagen) 1 mg IM ONCE PRN PRN Reason: Hypoglycemia Stop: 04/20/17 18:30 Glucose (Gluctose) 15 gm PO ONCE PRN PRN Reason: Hypoglycemia Stop: 04/20/17 18:30 Glucose (Gluctose) 30 gm PO ONCE PRN PRN Reason: Hypoglycemia Stop: 04/20/17 18:30 Sodium Chloride (0.45% Sodium Chloride 1000 Ml 1000 Ml) 1,000 mls @ 75 mls/hr IVC .[id number] [facility] Stop: 04/20/17 18:31 Last Admin: 10/20/16 19:32 Dose: Not Given Dextrose (Dextrose 5%) 1,000 mls @ 100 mls/hr IV CONT PRN PRN Reason: HYPOGLYCEMIA Stop: 04/20/17 18:30 Ceftriaxone Sodium 1,000 mg/ (Dextrose) 100 mls @ 200 mls/hr IVPB Q24H [facility] Stop: 04/20/17 22:01 Last Infusion: 10/20/16 23:12 Dose: Infused Sodium Chloride (0.9 % Sodium Chloride) 1,000 mls @ 100 mls/hr IVC .Q10H [facility] Stop: 04/21/17 14:01 Last Admin: 10/21/16 06:08 Dose: 100 mls/hr Insulin Detemir (Levemir) 12 unit 0.15 unit/kg (12 unit) SQ [facility] Stop: 04/21/17 21:01 Last Admin: 10/20/16 19:41 Dose: 12 unit Insulin Human Lispro (Humalog) 0 units SQ TIDAC [facility] PRN Reason: Protocol Stop: 04/21/17 07:31 Last Admin: 10/21/16 07:29 Dose: Not Given Insulin Human Lispro (Humalog) 0 units SQ [facility] PRN Reason: Protocol Stop: 04/20/17 21:01 Last Admin: 10/20/16 19:34 Dose: Not Given Levothyroxine Sodium (Synthroid) 112 mcg PO MOTUWETHFRSA [facility] Stop: 04/22/17 06:01 Last Admin: 10/21/16 06:51 Dose: 112 mcg Morphine Sulfate (Morphine Sulfate) 2 mg IVP Q4HR PRN PRN Reason: Severe Pain (7-10) Stop: 04/20/17 22:28 Naloxone HCl (Narcan) 0.4 mg IVP Q2MIN PRN PRN Reason: Opioid Reversal Stop: 04/20/17 22:28 Nitroglycerin (Nitroglycerin) 0.4 mg SL Q5MIN PRN PRN Reason: Chest Pain Stop: 04/20/17 22:28 Ondansetron HCl (Zofran) 4 mg IVP Q8HR PRN PRN Reason: Nausea And Vomiting Stop: 04/20/17 18:21 Oxycodone HCl (Roxicodone) 10 mg PO Q6HR PRN PRN Reason: Moderate Pain (4-6) Stop: 04/20/17 22:28 Pantoprazole Sodium (Protonix) 40 mg IVP DAILY SHOBHA Stop: 04/21/17 09:01 Last Admin: 10/21/16 08:41 Dose: 40 mg Pharmacy Profile Note (Patient Taking Own Medication) 0 each PO DAILY SHOBHA Stop: 04/21/17 09:01 Last Admin: 10/21/16 07:29 Dose: Not Given Pharmacy Profile Note (Patient Taking Own Medication) 0 each PO DAILY SHOBHA Stop: 04/21/17 09:01 Last Admin: 10/21/16 07:29 Dose: Not Given Pharmacy Profile Note (Patient Taking Own Medication) 0 each PO DAILY SHOBHA Stop: 04/21/17 09:01 Last Admin: 10/21/16 07:29 Dose: Not Given Pharmacy Profile Note (Patient Taking Own Medication) 0 each PO DAILY SHOBHA Stop: 04/21/17 09:01 Last Admin: 10/21/16 07:29 Dose: Not Given Potassium Chloride (Potassium Chloride) 20 meq PO DAILY SHOBHA Stop: 04/21/17 09:01 Last Admin: 10/21/16 08:41 Dose: 20 meq - Imaging and Cardiology Echo: report reviewed Cardiac cath: report reviewed Other Results: Telemetry review: V-paced at 60. - EKG Interpretation EKG results cardiology: personally reviewed - VTE Documentation of Mechanical Device: Venous foot pump, device Consult Discharge Plan - Plan Referrals: Meño Marroquin DO [Primary Care Provider] -
[2016-10-21] MEDS ORDERED: Furosemide 40 MG/4 ML VIAL IVP ONE (14:22)
[2016-10-21] MEDS: *HR* Morphine 2 MG/ML SYRINGE IVP PRN (15:32)
--- NOTE | 2016-10-21 15:47 | Cardiothoracic Consult Note ---
Date of Encounter: 10/21/16 Time of Encounter: 15:44 Assessment and Plan (1) NSTEMI (non-ST elevated myocardial infarction) Current Visit: Yes Status: Acute The assessment and plan as outlined above was discussed with the patient and/or family members who expressed understanding and agreement. All questions were answered. The patient has single vessel disease. 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 This makes angioplasty technically difficult. I do not favor open heart surgery for this small right coronary artery. If angioplasty is unable to be done, I favor medical therapy. She most likely will also require permanent pacemaker. - History of Present Illness History of present illness: Ms. Brennan is a 71 year old female History of present illness. Patient is a 71-year-old female who presented with hypotension, bradycardia with heart block, dizziness and chest heaviness. She does have a temporary pacemaker in place and will probably require a permanent pacemaker. Cardiac catheterization revealed a 20% circumflex lesion and a 50% proximal LAD lesion. The right coronary artery arises from the left cusp. It is quite small and has an 80-90% lesion in its midportion. Anatomically, it was difficult to balloon and PTCA will be attempted again tomorrow. Past medical history is positive for hypothyroidism, hyperparathyroidism, melanoma of the back and kidney stones. She also underwent cholecystectomy. Medications include Plavix. Family history is positive for heart disease. Review of systems is otherwise negative. Past Med Surg Social Fam HX - Past Medical History Medical history: arthritis, diabetes, hyperlipidemia, hypertension, osteoporosis Psychiatric history: other - Past Surgical History Surgical History: cancer surgery (melanoma), cholecystectomy, other ( parathyroid tumor - benign, lower lip lesion - benign, kidney stones) - Social History Smoking Status: Never smoker Smokeless Tobacco Status: No Alcohol use: none Drug use: none - Family History Mother Living Status: Age at : 76 Hx Family Cardiac Disorders: Yes (HTN) Father Living Status: Age at : 87 Hx Family Cardiac Disorders: Yes (CAD, PVD) Hx Family Endocrine Disorder: Yes (DM) Brother Hx Family Cancer: Yes (1 with stomach, 1 with lung) Medications and Allergies Amlodipine [Norvasc] 5 mg PO DAILY 10/19/16 [History] Aspirin [Lo-Dose Aspirin EC] 81 mg PO DAILY 10/19/16 [History] Beta-Carotene [Beta Carotene] 10,000 unit PO DAILY 10/19/16 [History] Calcium Carbonate/Vitamin D3 [Calcium 600 + Vit D Softgel] 1 cap PO BID [History] Cyanocobalamin (Vitamin B-12) [Vitamin B-12] 1,000 mcg PO DAILY 10/19/16 [ History] Glimepiride [Amaryl] 1 mg PO QAM 10/19/16 [History] Levothyroxine [Synthroid] 112 mcg PO MOTUWETHFRSA 10/19/16 [History] Lisinopril/Hydrochlorothiazide [Zestoretic 20-12.5 mg Tablet] 1 tab PO BID 10/19 [History] Lutein 6 mg PO DAILY 10/19/16 [History] Metoprolol Tartrate [Lopressor] 50 mg PO QAM 10/19/16 [History] Multivit-Min/FA/Lutein/Zeaxant [Macular Vitamin Tablet] 1 tab PO DAILY 10/19/16 [History] Sargeant-3/Dha/Epa/Fish Oil [Fish Oil 1,000 mg Softgel] 1,000 mg PO DAILY 10/19/16 [History] Potassium Chloride [Klor-Con] 20 meq PO DAILY 10/19/16 [History] Pravastatin Sodium [Pravachol] 40 mg PO DAILY 10/19/16 [History] Allergies guaifenesin [From Mucinex] Adverse Reaction (Verified 10/19/16 16:15) Gastrointestinal Upset All Systems Review: A 10-system review of systems was performed and is negative for pertinent findings except as documented above in the HPI. Physical Examination Vital Signs, Last 4 Hours Temp Pulse Resp BP Pulse Ox 10/21/16 15:28 98.2 F 10/21/16 15:00 72 18 161/86 92 L 10/21/16 14:00 59 24 175/78 88 L 10/21/16 13:00 59 24 133/66 90 L 10/21/16 12:00 59 16 137/69 93 L The patient has exophthalmus of the left eye. No oral lesions. Neck is supple. Trachea in the midline. No carotid bruits. Lungs are clear to percussion and auscultation. Heart is in a bradycardia with heart block and the patient is being paced with a temporary pacemaker. Abdomen is benign. No tenderness, rebound or guarding. No hepatosplenomegaly or masses. The patient is status post cholecystectomy and open kidney stone removal. Extremities without edema. No saphenous vein strippings. Cranial nerves, motor and sensory intact. Results 10/21/16 03:00 10/21/16 03:00 Lab Results, Last 24 hours 10/21/16 10/21/16 03:00 03:00 WBC 9.9 Hgb 10.9 L Hct 32.6 L Plt Count 171 Sodium 138 Potassium 3.3 L Chloride 110 H Carbon Dioxide 20 BUN 10 Creatinine 0.78 Glucose 121 H Calcium 7.9 L Consult Discharge Plan - Plan Referrals: Meño Marroquin DO [Primary Care Provider] -
--- NOTE | 2016-10-21 17:45 | Internal Med Progress Note ---
Date of Encounter: 10/21/16 Time of Encounter: 10:00 - Assessment and plan (1) NSTEMI (non-ST elevated myocardial infarction) Current Visit: Yes Status: Acute Assessment and plan: Patient has no chest pain now. Catheterization shows 90% RCA stenosis, considering account for bradycardia. On temp Pacemaker, plan for catheterization again or CABG. (2) DVT prophylaxis Current Visit: Yes Status: Acute Assessment and plan: Heparin sc (3) Bradycardia Current Visit: Yes Status: Acute Assessment and plan: Asymptomatic. Hold the beta ankit. possibly due to RCA stenosis, on temp PM. Continue close monitoring (4) Diabetes Current Visit: Yes Status: Acute Assessment and plan: Continue basal and sliding scale insulin Qualifiers: Diabetes mellitus type: type 2 Diabetes mellitus complication status: without complication Diabetes mellitus group home insulin use: without local company intermodal truck driver use Qualified Code(s): E11.9 - Type 2 diabetes mellitus without complications (5) Hypothyroid Current Visit: Yes Status: Acute Assessment and plan: Continue Synthroid Qualifiers: Hypothyroidism type: unspecified Qualified Code(s): E03.9 - Hypothyroidism , unspecified - Time Spent With Patient 25 - 35 minutes - Subjective Interval history: Patient is a 18-year-old female admitted for chest pain with elevated troponin. Diagnosed as NSTEMI. Past medical history is significant for malignant melanoma, diabetes, hyperlipidemia, hypertension, kidney stone, thyroid disease. She was seen and examined. She is awake alert, oriented 3. No chest pain when I saw her. No shortness of breath. Vitals are stable, On temperary pacemaker, HR 70. Pt has 90% stenosis on RCA, failed stenting, Cardiology plan to try stent again, if not success, will refer to surgeon for CABG. Her bradycardia is considered due to RCA stenosis. This afternoon, pt developped SOB and desaturation. Cardiology and I went to see pt. Her saturation is 88% on 6L O2. Consider congestion and lasix 40mg iv was given per cardio. Symptoms improved after treatment. - Constitutional Vitals: Temp Pulse Resp BP Pulse Ox 98.2 F 72 25 133/67 93 L 10/21/16 15:28 10/21/16 16:00 10/21/16 16:00 10/21/16 16:00 10/21/16 16:00 General appearance: Present: A&O X 3, pleasant, no acute distress, answers questions appropriately - Head Head exam: Present: atraumatic, normocephalic - Eye Eye exam: Present: PERRL, conjuntiva pink, sclera anicteric Pupils: Present: PERRL - Neck Neck exam general surgery: Present: supple, trachea midline. Absent: lymphadenopathy - Respiratory Respiratory exam: Present: CTAB. Absent: accessory muscle use, rales, rhonchi, wheezes - Cardiovascular Cardiovascular exam: Present: RRR, +S1, +S2. Absent: diastolic murmur, gallop, rubs, systolic murmur - GI/Abdominal GI/Abdominal exam: Present: normal bowel sounds, soft, no peritoneal signs. Absent: distended, tenderness - Extremities Exam Extremities exam: Present: warm, radial pulses palpable and symetrical. Absent : calf tenderness, cyanotic, pedal edema - Neurological Exam Neurological exam: Present: CN II-XII intact, oriented X3, no focal deficits. Absent: pronater drift, facial droop, speech deficit - Skin Skin exam: Present: dry, intact Internal Medicine: Result - Labs CBC & Chem 7: 10/21/16 03:00 10/21/16 03:00 Labs: Short CBC 10/21/16 Range/Units 03:00 WBC 9.9 (4.3-11.1) K/mcL Hgb 10.9 L (11.5-15.4) g/dL Hct 32.6 L (35.3-44.9) % Plt Count 171 (140-400) K/mcL Neutrophils # 7.1 (1.6-8.9) K/mcL BMP 10/21/16 03:00 Sodium 138 Potassium 3.3 L Chloride 110 H Carbon Dioxide 20 BUN 10 Creatinine 0.78 Glucose 121 H Calcium 7.9 L - ABG Interpretation ABG results: PT/INR, D-dimer PT 12.4 Seconds (9.4-12.1) H 10/19/16 14:21 - VTE Documentation of Mechanical Device: Venous foot pump, device Consult Discharge Plan - Plan Referrals: Meño Marroquin DO [Primary Care Provider] -
[2016-10-21] MEDS: *HR* Heparin 5,000 UNIT/ML VIAL SQ SCH (18:31)
[2016-10-21] MEDS: Insulin DETEMIR 100 UNIT/ML X5UNITS SQ SCH (20:34)
[2016-10-21] MEDS: *HR* OxyCODONE Immed Rel 5 MG TABLET PO PRN (20:34)
[2016-10-22 03:17] LABS: Basophils % 0.2 %; Eosinophils % 0.2 %; Hematocrit 34.2 % (35.3-44.9); Hemoglobin 11.4 g/dL (11.5-15.4); Immature Granulocytes % 0.4 % (0-4); Lymphocytes # 1.6 K/mcL (0.6-4.6); Lymphocytes % 18.9 %; Mean Corpuscular HGB Conc 33.3 g/dL (31.6-35.5); Mean Corpuscular Hemoglobin 31.4 pg (28.0-33.3); Mean Corpuscular Volume 94.2 fL (83.0-100.0); Mean Platelet Volume 9.5 fL (9.4-12.4); Monocytes # 0.7 K/mcL (0.0-1.3); Monocytes % 7.7 %; Neutrophils # 6.2 K/mcL (1.6-8.9); Platelet Count 173 K/mcL (140-400); Red Blood Count 3.63 M/mcL (3.82-4.97); Segmented Neutrophils % 72.6 %
[2016-10-22 03:30] LABS: BUN/Creatinine Ratio 11 (6-26); Blood Urea Nitrogen 8 mg/dL (7-20); Calcium 8.3 mg/dL (8.6-10.8); Carbon Dioxide 25 mEq/L (19-29); Chloride 104 mEq/L (98-109); Glucose 113 mg/dL (70-99); Osmolality,Calculated 285 (280-300); Potassium 3.6 mEq/L (3.5-4.5); Sodium 138 mEq/L (136-145); eGFR For African Americans > 60 (> 60); eGFR For Non-African Americans > 60 (> 60)
[2016-10-22] MEDS: *HR* Heparin 5,000 UNIT/ML VIAL SQ SCH ×2 (05:57→18:41)
--- NOTE | 2016-10-22 06:33 | Electrocardiograph Report ---
[address] [place], [place] [address] Test Date: 2016-10-19 Pat Name: Doris Brennan Department: 110 Room: [facility] Gender: F Line Installer Repairer: : 1945 Requested By: Karon Mack Order Number: [id number] Reading MD: Hitesh Carpenter MD Measurements Intervals [place] Rate: 42 P: 43 TN: 279 QRS: -7 QRSD: 91 T: 0 QT: 483 QTc: 424 Interpretive Statements SINUS BRADYCARDIA WITH FIRST DEGREE AV BLOCK INFERIOR MYOCARDIAL INFARCTION, OF INDETERMINATE AGE INFEROLATERAL CURRENT OF INJURY Electronically Signed On 10-22-2016 6:31:11 EST by Hitesh Carpenter MD
[2016-10-22] MEDS: *HR* OxyCODONE Immed Rel 5 MG TABLET PO PRN (07:27)
[2016-10-22] MEDS: Insulin LISPRO 300 UNITS/3 ML VIAL SQ SCH ×4 (07:28→21:06)
[2016-10-22] MEDS: *HR* Morphine 2 MG/ML SYRINGE IVP PRN (07:28)
[2016-10-22] MEDS: (Fish Oil 1,000 Mg Softgel) PO SCH (08:36)
[2016-10-22] MEDS: [UNRECOGNIZED DRUG - OTHER] PO SCH (08:36)
[2016-10-22] MEDS: BETA CAROTENE 10000 UNIT PO SCH (08:36)
[2016-10-22] MEDS: LUTEIN 6 MG PO SCH (08:36)
[2016-10-22] MEDS: Pantoprazole 40 MG VIAL IVP SCH (08:42)
--- NOTE | 2016-10-22 11:50 | Event Note ---
Date of Encounter: 10/22/16 Time of Encounter: 11:00 - Cardiology Event Note Seen and examined earlier this AM and again this afternoon. Reviewed [facility] with Dr. 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 2:1 AV Block underlying today, continues to be dependent on temporary pacer. Will plan for implantation of PPM this afternoon with Dr. Tye Perales. Alternatives, risks, and benefits of procedure discussed; she is agreeable to proceed. Will re-check limited TTE to eval severity of MR. Will continue to follow.
--- NOTE | 2016-10-22 13:22 | Internal Med Progress Note ---
<Nehemiah Fair - Last Filed: 10/22/16 16:36> Date of Encounter: 10/22/16 Time of Encounter: 13:20 - Assessment and plan (1) NSTEMI (non-ST elevated myocardial infarction) Current Visit: Yes Status: Acute Assessment and plan: Currently patient is chest pain free. 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 Not able to perform PTCA or CABG. Now in complete heart block. Will get a pacemaker today. Continue medical managment Currently on ASA and Lipitor. (2) Coronary artery disease Current Visit: Yes Status: Acute Assessment and plan: as stated above. Qualifiers: Qualified Code(s): I25.10 - Atherosclerotic heart disease of ramona coronary artery without angina pectoris (3) Bradycardia Current Visit: Yes Status: Acute Assessment and plan: currently requiring venous pacing Will be scheduled for a pacemaker. (4) Diabetes Current Visit: Yes Status: Acute Assessment and plan: currently at goal. Continue levemir and sliding scale insulin Qualifiers: Qualified Code(s): E11.9 - Type 2 diabetes mellitus without complications (5) Anemia Current Visit: Yes Status: Acute Assessment and plan: mild normocytic. likely dilutional and from repeated blood work. continue to monitor. Qualifiers: Qualified Code(s): D64.9 - Anemia, unspecified (6) DVT prophylaxis Current Visit: Yes Status: Acute Assessment and plan: SQ heparin - Subjective Interval history: Mrs. Brennan is a 71 y.o. female that was admitted for an NSTEMI and bradycardia. 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 PTCA was unable to be performed. CT surgery was consulted for possible Surgical repair. however this was recommended against. She also developed complete heart block and is currently pacer depended. Per documentation the case was discussed with the interventionalist who did not think repeat PTCA would be feasible. She is scheduled to have a dual chamber pace maker placed later today. Today mrs. Brennan states that she is feeling better. she denies any chest pain or dizzyness. she denies any dyspne or difficulty breathing. she dose admit to some low back pain and states that she has had muscle spasms. She denies any further complaints or concerns at this time. - Constitutional Vitals: Temp Pulse Resp BP Pulse Ox 98.1 F 71 16 116/63 95 10/22/16 11:43 10/22/16 13:00 10/22/16 13:00 10/22/16 13:00 10/22/16 13:00 General appearance: Present: A&O X 3, pleasant, no acute distress, answers questions appropriately - Head Head exam: Present: atraumatic, normocephalic - Eye Eye exam: Present: PERRL, conjuntiva pink, sclera anicteric Pupils: Present: PERRL - Neck Neck exam general surgery: Present: supple, trachea midline. Absent: lymphadenopathy - Respiratory Respiratory exam: Present: CTAB. Absent: accessory muscle use, rales, rhonchi, wheezes - Cardiovascular Cardiovascular exam: Present: RRR, +S1, +S2. Absent: diastolic murmur, gallop, rubs, systolic murmur Additional comments: PAced 72 BPM currently - GI/Abdominal GI/Abdominal exam: Present: normal bowel sounds, soft, no peritoneal signs. Absent: distended, tenderness - Extremities Exam Extremities exam: Present: warm, radial pulses palpable and symetrical. Absent : calf tenderness, cyanotic, pedal edema - Skin Skin exam: Present: dry, intact Internal Medicine: Result - Labs CBC & Chem 7: 10/22/16 02:46 10/22/16 02:46 Labs: Short CBC 10/22/16 Range/Units 02:46 WBC 8.6 (4.3-11.1) K/mcL Hgb 11.4 L (11.5-15.4) g/dL Hct 34.2 L (35.3-44.9) % Plt Count 173 (140-400) K/mcL Neutrophils # 6.2 (1.6-8.9) K/mcL BMP 10/22/16 02:46 Sodium 138 Potassium 3.6 Chloride 104 Carbon Dioxide 25 BUN 8 Creatinine 0.72 Glucose 113 H Calcium 8.3 L - ABG Interpretation ABG results: PT/INR, D-dimer PT 12.4 Seconds (9.4-12.1) H 10/19/16 14:21 - VTE Documentation of Mechanical Device: Venous foot pump, device Consult Discharge Plan - Plan Referrals: Yandila,Reggina W, DO [Primary Care Provider] - <Gray Langston - Last Filed: 10/22/16 17:15> - Constitutional Vitals: Temp Pulse Resp BP Pulse Ox 98.1 F 97 18 149/82 93 L 10/22/16 11:43 10/22/16 17:00 10/22/16 17:00 10/22/16 17:00 10/22/16 17:00 Internal Medicine: Result - Labs CBC & Chem 7: 10/22/16 02:46 10/22/16 02:46 Labs: Short CBC 10/22/16 Range/Units 02:46 WBC 8.6 (4.3-11.1) K/mcL Hgb 11.4 L (11.5-15.4) g/dL Hct 34.2 L (35.3-44.9) % Plt Count 173 (140-400) K/mcL Neutrophils # 6.2 (1.6-8.9) K/mcL BMP 10/22/16 02:46 Sodium 138 Potassium 3.6 Chloride 104 Carbon Dioxide 25 BUN 8 Creatinine 0.72 Glucose 113 H Calcium 8.3 L - ABG Interpretation ABG results: PT/INR, D-dimer PT 12.4 Seconds (9.4-12.1) H 10/19/16 14:21 - Impressions Impressions Chest X-Ray 10/22/16 15:21 IMPRESSION: Placement of left chest wall cardiac pacer device with leads in expected positions. No evidence of pneumothorax. Cardiomegaly with mild CHF findings including central pulmonary vascular congestion and small left pleural effusion. D/ / Benoit Liu MD / Benoit Liu MD Interpreting Provider: Benoit Liu MD - Attending Attestation I examined this patient and my medical decision-making was reviewed with the POWER SHOVEL MECHANIC/PA/Advanced Practice Nurse/Resident Physician. I agree with the documented findings, disposition and treatment plan as described except to the extent set forth below. I agree with the documentation according to Dr. Neehmiah Fair's note. Patient underwent a pacemaker Placement today, follow chest x- ray.
--- NOTE | 2016-10-22 13:40 | Pre-Sedation Evaluation ---
Pre-sedation evaluation - Pre-sedation checklist Date of procedure: 10/22/16 Procedure: pace maker placement Recent Vitals: Last Vital Signs Temp 98.1 F 10/22/16 11:43 Pulse 71 10/22/16 13:00 Resp 16 10/22/16 13:00 BP 116/63 10/22/16 13:00 Pulse Ox 95 10/22/16 13:00 H&P (including ROS) documented in medical record: Yes Previous reaction to sedatives/anesthetics: No Dietary Status: NPO after Midnight Airway Assessment: Patient can open mouth completely, TMJ function normal, Micrognathia (under-bite, receding chin) absent Dentition: dentures removed Possible difficult airway: No ASA Classification *see protocol: CLASS II-Mild systemic disease Plan of Care: Pt appropriate candidate for procedure/moderate/conscious sedation , Risks/benefits of procedure/sedation discussed w/ patient/family
[2016-10-22] MEDS ORDERED: *HR* FentaNYL (PF) 100 MCG/2 ML VIAL ONE (14:01)
[2016-10-22] MEDS ORDERED: 0.9 % Sodium Chloride 500 ML ONE (14:02)
[2016-10-22] MEDS ORDERED: *HR* Midazolam HCl 2 MG/2 ML VIAL ONE (14:02)
[2016-10-22] MEDS: Aspirin 81 MG TAB.CHEW PO SCH (16:48)
[2016-10-22] MEDS: Cyanocobalamin (B-12) 1,000 MCG TABLET PO SCH (16:48)
[2016-10-22] MEDS: Insulin DETEMIR 100 UNIT/ML X5UNITS SQ SCH (21:06)
[2016-10-23] MEDS: *HR* OxyCODONE Immed Rel 5 MG TABLET PO PRN (00:30)
[2016-10-23 03:09] LABS: Basophils % 0.3 %; Eosinophils # 0.1 K/mcL (0.0-0.6); Eosinophils % 1.3 %; Hematocrit 32.6 % (35.3-44.9); Hemoglobin 10.9 g/dL (11.5-15.4); Immature Granulocytes % 0.4 % (0-4); Lymphocytes # 1.4 K/mcL (0.6-4.6); Mean Corpuscular HGB Conc 33.4 g/dL (31.6-35.5); Mean Corpuscular Hemoglobin 31.3 pg (28.0-33.3); Mean Corpuscular Volume 93.7 fL (83.0-100.0); Mean Platelet Volume 9.4 fL (9.4-12.4); Monocytes # 0.4 K/mcL (0.0-1.3); Monocytes % 6.2 %; Platelet Count 177 K/mcL (140-400); Red Blood Count 3.48 M/mcL (3.82-4.97); Red Cell Distribution Width 12.8 % (11.5-14.5); Segmented Neutrophils % 71.8 %
[2016-10-23 03:31] LABS: BUN/Creatinine Ratio 19 (6-26); Blood Urea Nitrogen 12 mg/dL (7-20); Calcium 8.4 mg/dL (8.6-10.8); Carbon Dioxide 23 mEq/L (19-29); Chloride 105 mEq/L (98-109); Glucose 95 mg/dL (70-99); Osmolality,Calculated 282 (280-300); Potassium 3.9 mEq/L (3.5-4.5); Sodium 136 mEq/L (136-145); eGFR For African Americans > 60 (> 60); eGFR For Non-African Americans > 60 (> 60)
[2016-10-23] MEDS: *HR* Heparin 5,000 UNIT/ML VIAL SQ SCH ×2 (06:34→18:39)
[2016-10-23] MEDS: Insulin LISPRO 300 UNITS/3 ML VIAL SQ SCH ×3 (08:00→16:48)
[2016-10-23] MEDS: Aspirin 81 MG TAB.CHEW PO SCH (08:26)
[2016-10-23] MEDS: Cyanocobalamin (B-12) 1,000 MCG TABLET PO SCH (08:26)
[2016-10-23] MEDS: BETA CAROTENE 10000 UNIT PO SCH (08:26)
[2016-10-23] MEDS: (Fish Oil 1,000 Mg Softgel) PO SCH (08:27)
[2016-10-23] MEDS: LUTEIN 6 MG PO SCH (08:28)
[2016-10-23] MEDS: [UNRECOGNIZED DRUG - OTHER] PO SCH (08:28)
[2016-10-23] MEDS: Pantoprazole 40 MG VIAL IVP SCH (08:28)
[2016-10-23] MEDS: 0.9 % Sodium Chloride 1,000 ML IVC SCH (09:00)
--- NOTE | 2016-10-23 09:20 | Cardiology Progress Note ---
Date of Encounter: 10/23/16 Time of Encounter: 09:00 Assessment and Plan (1) NSTEMI (non-ST elevated myocardial infarction) Current Visit: Yes Status: Acute Peak troponin 10.25, ischemic inferior ECG changes Suspect event last 10/16/16 Risk factors for CAD: HTN, HLD, DMII, and positive family history. 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 Transvenous temporary pacer inserted d/t complete heart block. 10/20/16 TTE: EF 55% with mid inferior/basal inferior hypokinesis, moderate MR Reviewed angiogram with Dr. Carpenter and Dr. Akiko Perales who recommend medical management due to difficulty intervening on lesion due to anomalous RCA origin. CT surgery consulted--bypass not favorable due to small vessel. Kidney function has remained stable. Betablocker added yesterday evening s/p PPM. Start 75 mg daily plavix (DAPT 1m-1y as tolerated for NSTEMI). Continue asa and statin. (2) AV block, 3rd degree Current Visit: Yes Status: Acute Complete heart block during LHC; temporary pacer inserted during procedure. Continued to be in complete heart block/2:1 AV block. PPM (MRI safe) implanted on 10/22/[address] Tye Perales. Appointment request for follow-up. Device check this AM showed normal functioning PPM--99.9% paced. CXR yesterday evening stable s/p PPM implant. CXR this AM stable. Post PPM discharge instructions discussed with patient including care of site, restrictions, and follow-up; she verbalized understanding of all information provided. Discussion w patient/family: The assessment and plan as outlined above was discussed with the patient and/or family members who expressed understanding and agreement. All questions were answered. Thank you for involving us in the care of your patient. Please call with any questions. The patient will be discussed and reviewed with Dr. Benavides; Cardiology will sign- off. Subjective Principal diagnosis: NSTEMI Interval history: See and examined; feels much better today. Denies chest pain or discomfort, shortness of breath, or issues with left upper chest wall PPM site. Objective Vital Signs, Last 4 Hours Temp Pulse Resp BP Pulse Ox 10/23/16 09:00 87 18 129/68 95 10/23/16 08:00 85 18 137/67 94 L 10/23/16 07:56 79 10/23/16 07:51 97.8 F 10/23/16 07:00 80 20 128/70 94 L 10/23/16 06:00 72 14 130/74 94 L General: Conversant, No Apparent Distress HEENT: Atraumatic, Normocephaly, Mucus Membranes Moist Cardiac: Reg Rate and Rhythm (paced), Normal S1 and S2 Lungs: Normal Breath Sounds Neuro: Alert and responsive Abdomen: Soft Skin: No rashes noted on visualized skin Musculoskeletal: No Chest Wall Tenderness Extremities: No Edema, Normal Pulses Results 10/23/16 03:01 10/23/16 03:01 Lab Results 10/23/16 10/23/16 03:01 03:01 WBC 7.0 Hgb 10.9 L Hct 32.6 L Plt Count 177 Sodium 136 Potassium 3.9 Chloride 105 Carbon Dioxide 23 BUN 12 Creatinine 0.64 Glucose 95 Calcium 8.4 L Active Medications Acetaminophen (Tylenol) 650 mg PO Q6HR PRN PRN Reason: Mild Pain (1-3) Stop: 04/20/17 18:21 Last Admin: 10/21/16 00:30 Dose: 650 mg Aspirin (Aspirin) 81 mg PO DAILY [facility] Stop: 04/22/17 09:01 Last Admin: 10/23/16 08:26 Dose: 81 mg Atorvastatin Calcium (Lipitor) 40 mg PO HS [facility] Stop: 04/21/17 21:01 Last Admin: 10/22/16 21:00 Dose: 40 mg Atropine Sulfate (Atropine) 0.5 mg IVP ONCE PRN PRN Reason: Bradycardia Stop: 04/20/17 18:28 Calcium Carbonate (Tums) 500 mg PO BID [facility] Stop: 04/21/17 09:01 Last Admin: 10/23/16 08:26 Dose: 500 mg Cyanocobalamin (Vitamin B12) 1,000 mcg PO DAILY [facility] Stop: 04/21/17 09:01 Last Admin: 10/23/16 08:26 Dose: 1,000 mcg Dextrose/Water (Dextrose 50% (Syg)) 25 ml IVP AD PRN PRN Reason: Hypoglycemia Stop: 04/20/17 18:30 Docusate Sodium (Colace) 100 mg PO BID PRN PRN Reason: Constipation Stop: 04/20/17 22:28 Glucagon (Glucagen) 1 mg IM ONCE PRN PRN Reason: Hypoglycemia Stop: 04/20/17 18:30 Glucose (Gluctose) 15 gm PO ONCE PRN PRN Reason: Hypoglycemia Stop: 04/20/17 18:30 Glucose (Gluctose) 30 gm PO ONCE PRN PRN Reason: Hypoglycemia Stop: 04/20/17 18:30 Heparin Sodium (Porcine) (Heparin) 5,000 unit SQ Q12HCO [facility] Stop: 04/22/17 19:01 Last Admin: 10/23/16 06:34 Dose: 5,000 unit Dextrose (Dextrose 5%) 1,000 mls @ 100 mls/hr IV CONT PRN PRN Reason: HYPOGLYCEMIA Stop: 04/20/17 18:30 Ceftriaxone Sodium 1,000 mg/ (Dextrose) 100 mls @ 200 mls/hr IVPB Q24H [facility] Stop: 04/20/17 22:01 Last Infusion: 10/22/16 21:45 Dose: Infused Potassium Chloride (Potassium Chloride 10 Meq/100ml) 10 meq in 100 mls @ 100 mls/hr IVPB Q1H PRN PRN Reason: HYPOKALEMIA Insulin Detemir (Levemir) 12 unit 0.15 unit/kg (12 unit) SQ [facility] Stop: 04/21/17 21:01 Last Admin: 10/22/16 21:06 Dose: 12 unit Insulin Human Lispro (Humalog) 0 units SQ TIDAC [facility] PRN Reason: Protocol Stop: 04/21/17 07:31 Last Admin: 10/23/16 08:00 Dose: Not Given Insulin Human Lispro (Humalog) 0 units SQ [facility] PRN Reason: Protocol Stop: 04/20/17 21:01 Last Admin: 10/22/16 21:06 Dose: 3 units Levothyroxine Sodium (Synthroid) 112 mcg PO MOTUWETHFRSA [facility] Stop: 04/22/17 06:01 Last Admin: 10/23/16 06:34 Dose: 112 mcg Metoprolol Tartrate (Lopressor) 12.5 mg PO BID [facility] Stop: 04/23/17 21:01 Last Admin: 10/23/16 08:26 Dose: 12.5 mg Morphine Sulfate (Morphine Sulfate) 2 mg IVP Q4HR PRN PRN Reason: Severe Pain (7-10) Stop: 04/20/17 22:28 Last Admin: 10/22/16 07:28 Dose: 2 mg Naloxone HCl (Narcan) 0.4 mg IVP Q2MIN PRN PRN Reason: Opioid Reversal Stop: 04/20/17 22:28 Nitroglycerin (Nitroglycerin) 0.4 mg SL Q5MIN PRN PRN Reason: Chest Pain Stop: 04/20/17 22:28 Omeprazole (Prilosec) 20 mg PO DAILY@0730 [facility] Stop: 04/25/17 07:31 Ondansetron HCl (Zofran) 4 mg IVP Q8HR PRN PRN Reason: Nausea And Vomiting Stop: 04/20/17 18:21 Oxycodone HCl (Roxicodone) 10 mg PO Q6HR PRN PRN Reason: Moderate Pain (4-6) Stop: 04/20/17 22:28 Last Admin: 10/23/16 00:30 Dose: 10 mg Pharmacy Profile Note (Patient Taking Own Medication) 0 each PO DAILY [facility] Stop: 04/21/17 09:01 Last Admin: 10/23/16 08:27 Dose: Not Given Pharmacy Profile Note (Patient Taking Own Medication) 0 each PO DAILY [facility] Stop: 04/21/17 09:01 Last Admin: 10/23/16 08:28 Dose: 1 each Pharmacy Profile Note (Patient Taking Own Medication) 0 each PO DAILY [facility] Stop: 04/21/17 09:01 Last Admin: 10/23/16 08:28 Dose: 1 each Pharmacy Profile Note (Patient Taking Own Medication) 0 each PO DAILY [facility] Stop: 04/21/17 09:01 Last Admin: 10/23/16 08:26 Dose: 1 each Potassium Chloride (Potassium Chloride) 20 meq PO DAILY [facility] Stop: 04/21/17 09:01 Last Admin: 10/23/16 08:26 Dose: 20 meq - Imaging and Cardiology Stress Test: report reviewed Echo: report reviewed Cardiac cath: report reviewed Other Results: Paced - EKG Interpretation EKG results cardiology: personally reviewed - VTE Documentation of Mechanical Device: Venous foot pump, device Consult Discharge Plan - Plan Additional Instructions: ACTIVITY: Moderate activity for the next 7 days. No lifting more than 5 pounds ( gallon of milk) for 4-6 weeks. Avoid lifting your arm on the same side as the device for 4 weeks. BATHING /SHOWERING: Do not remove the large bandage over the site for 2 days. Do not allow the device to get wet for 7-10 days. You may bathe/shower, but do not use soap and water on the site. When bathing, keep the site dry by covering with Saran wrap or a towel. WOUND CARE: The white steri-strips will start to peel away and come off after 14 days, or your doctor will remove them after [address] into or on top of the incision. Do not use cotton swabs. Do not use any antibiotic ointment or Vitamin E on the site. REMINDERS: You may use electrical devices, such as, microwaves, hair dryers, electric razors, electric blankets, etc. as long as they are in good condition and kept 6 -8 inches away from the device. It is recommended to use cell phones on the opposite side of your device. Notify security personnel at the airport that you have a device before you go through airport security screening. When at places with security monitors, such as a grocery store, do not linger near these monitors. It is fine to walk past them in a normal manner. Refer to your owners manual for more specific directions. CARRY YOUR PACEMAKER/ICD CARD WITH YOU AT ALL TIMES Return to work as instructed per physician Resume driving as instructed per physician Keep all scheduled follow up appointments Resume medications as instructed Contact [facility] ( ) if: You develop excessive bleeding from insertion or wound site not controlled by applying pressure You develop a fever greater than 101 degrees Fahrenheit Your incision becomes reddened at or around the site Your incision develops yellowish or greenish drainage or development of white pimple-like bumps You experience excessive pain You develop swelling in your ankles You experience muscle switching You develop excessive hiccupping If you experience chest pain, shortness of breath, dizziness, or extreme tiredness, stop the activity and rest. Please notify [facility] office if you experience any of these symptoms and they are not relieved by rest please call 911! Referrals: Meño Marroquin DO [Primary Care Provider] - Henrry Rai DO [Partnered Physician] - 10/31/16 9:05 am Tye Perales MD [Partnered Physician] - ([facility]: 11/01/16 at 8:00 AM for wound check 11/29/16 at 8:00 AM for device check)
--- NOTE | 2016-10-23 09:44 | ECHO - Doppler Report ---
Limited Echocardiogram Name: Doris Brennan Date of Study: 10/22/2016 Date: 1945 Ht: 61.0 in Medical Record#: [id number] Age: 71 Wt: 177.0 lb Gender: Female BSA: 1.79 Order #: [id number] Location: [facility] Room #: [facility] Reading Physician: Brooke Angulo DO First Aid Nurse: Nena Cespedes RDCS Ordering Physician: Octavia Dennison CNP Primary Physician: Meño Marroquin DO Indications: Assess Mitral Regurgitation, Evaluate mitral valve Impressions: Technically challenging study with suboptimal image quality. The LV endocardial border is not well visualized. Unable to estimate LVEF. Visually, LV systolic function appears moderately reduced. Consider Limited study with Definity. The mitral valve was poorly visualized in the PLAX or PSAX views. Apical images demonstrate normal appearing mitral valve structure and function. There is mild MR by color flow which may be underestimated. MR is moderate by Spectral Doppler. Left Ventricular Wall Motion: Rest Echo Findings The apex, apical inferior, mid inferior, basal inferior, apical septal, mid inferior septal and basal inferior septal [place] were hypokinetic. The apical anterior, mid anterior, basal anterior, apical lateral, mid anterior lateral, basal anterior lateral, mid inferior lateral and basal inferior lateral [place] were not visualized. All other wall segments showed normal motion. Findings: Study Quality * Technically challenging image quality. Suboptimal PLAX and PSAX images. ECG Findings * Sinus rhythm with BBB. Mitral Valve * Mitral valve structure appears normal in the apical views. It is not well visualized in the PLAX or PSAX views. * No mitral stenosis. * Mild MR by color flow and moderate by Spectral Doppler. Degree of MR may be underestimated. Right Ventricle * Normal right ventricular structure and function. IVC * Normal IVC dimensions and inspiratory collapse. Tricuspid Valve * Estimated RA pressure is 3 mmHg. Left Ventricle * Unable to evaluate segmental wall motion due to technical quality. * Unable to estimate LVEF on this study. History Hypertension Hypercholesteremia History of CAD/PTCA 10/20/2016 a Previous Echo was performed. Measurements: BP: 136/ 76 2D Normal Values IVSd: 1.11 cm 0.6 - 1.0 cm LVIDd: 4.93 cm 3.7 - 5.6 cm LVPWd: .99 cm 0.6 - 1.1 cm LVIDs: 3.42 cm 1.5 - 3.6 cm %FS: 30.60 cm >25 % LA volume: Mitral Valve Peak Velocity 1.36 m/sec Mean Velocity:.94 m/sec Peak Grad:7.00 mmHg Mean Grad:4.00 mmHg Peak E:1.33 m/sec Peak A:1.17 m/sec E/A Ratio:1.1 Updated by Brooke Angulo on 10/23/2016 9:38:59 AM electronically signed on 10/23/2016 9:40:53 AM with status of Final Wall Motion Coe: 1=Normal, 2=Hypokinesis, 3=Akinesis, 4=Dyskinesis, 5=Aneurysmal, 6=Hyperkinetic, X=Not Visualized (Blank)=Missing
--- NOTE | 2016-10-23 11:46 | Electrocardiograph Report ---
[address] [place] [address] Test Date: 2016-10-19 Pat Name: Doris Brennan Department: 103 Room: [facility] Gender: F Customer Service Manager: : 1945 Requested By: Hasmukh Barrera Order Number: [id number] Reading MD: Hitesh Carpenter MD Measurements Intervals [place] Rate: 34 P: [place]: 0 QRS: -11 QRSD: 90 T: 78 QT: 487 QTc: 384 Interpretive Statements SINUS RHYTHM WITH HIGH GRADE AV BLOCK POOR R WAVE PROGRESSION VENTRICULAR ESCAPE BEAT INFERIOR AR, LIKELY RECENT Electronically Signed On 10-23-2016 11:44:01 EST by Hitesh Carpenter MD
--- NOTE | 2016-10-23 12:36 | Invasive Diagnostic Lab ---
Dual Chamber Pacemaker Insertion Name: Doris Brennan Date of Study: 10/22/2016 Date: 1945 Ht: 155.0 cm / 61.0 in Medical Record#: [id number] Age: 71 Wt: 80.0 kg / 176.4 lb Gender: Female BSA: 1.79 Location: Fluoro Dose: 57 mGy BMI: 33.3 Performing MD: Tye Perales MD, [facility] Procedures Performed: Procedure PM INSERTION DUAL LEADS Indications: Description Atrial arrhythmia Impressions: * Successful implant of dual chamber pacemaker generator. Degree of difficulty was moderate. Appropriate functionality was observed at the end of the case. Procedure completed without incident. Recommendations: The patient will follow-up in 4-6 weeks for a post-pacemaker interrogation and evaluation with their Division Human Resources Manager. Procedure Description: After informed consent was obtained, the patient was brought to the laboratory in the fasting, post absorptive state. The left subclavicular region was prepped and draped in sterile fashion. Local anesthesia was performed using 1% Lidocaine. A 4cm incision was created two fingerbreadths below and parallel to the clavicle and carried down to the prepectoral fascia. At that level, a pocket was created to accomodate and size the hardware. This portion of the procedure used sharp dissection, blunt dissection and electrocautery. Venous access was obtained using a dual axillary vein stick with the modified Seldinger technique using two 7 Fr. Safe sheaths. The right ventricular lead was manipulated under direct fluoroscopy to find a physically stable and electrically optimal location in the RV [place]. Next, the right atrial lead was placed and again manipulated under direct fluoroscopy to find a physically stable electrically optimal location in the RA appendage. Hemostasis was obtained. The pocket was copiously irrigated with antibiotic solution. The device was connected to the leads in standard fashion and set screws deployed. The device was placed in the pocket. No anchoring sutures were placed. The wound was closed in layers starting with 2-0 Vicryl for the deep layer and 4-0 Vicryl for the skin. Steri-Strips were placed and 4x4s secured with tape. The patient tolerated the procedure well. Complications: None Disposition: The patient was returned to the recovery room. Patient will be scheduled to have a follow-up wound check in one week here at [facility]. PPM Device Information: Director [employer]ulatory Affairs Model Name Model No. Serial No. Medtronic Karrie Waller [id number] PPM Lead(s) Information: Director [employer]ulatory [employer] Model Name Model No. Serial No. Placement Medtronic 5076-52 [id number] RV [place] Medtronic 5076-45 [id number] RA appendage Device Measurement Data: Sensing (mV) Threshold (V) / (msec) Impedance (Ohms) Atrial Lead 3.3 0.9 / 0.5 764 RV Lead 6 0.2 / 0.5 788 LV Lead Device Settings: MODE: DDDR Lower Rate: 60 bpm YURY Delay: Upper Rate: 120 bpm PAV Delay: Procedure Medications: Time Medication Dose Unit Route 02:07 PM Oxygen 2 L/min nasal cannula 02:10 PM Versed 1 Mg Intravenous 02:10 PM Fentanyl 25 Mcg Intravenous 02:20 PM Lidocaine 2% 4 mL Subcutaneous 02:21 PM Lidocaine 2% 3 mL Subcutaneous 02:21 PM Lidocaine 2% 3 mL Subcutaneous Contrast: Isovue 0 ml. Complications: No complications occurred during the procedure. Complication None Updated by Tye Perales MD, FACC on 10/23/2016 12:29:08 PM electronically signed on 10/23/2016 12:29:42 PM with status of Final
[2016-10-23] MEDS ORDERED: Ondansetron 4 MG/2 ML VIAL IVP PRN (13:49)
[2016-10-23] MEDS ORDERED: *HR* Dextrose 50 % in Water (Syg) 50 ML SYRINGE IVP PRN (13:49)
[2016-10-23] MEDS ORDERED: Dextrose Gel 15 GM PO PRN ×2 (13:49)
[2016-10-23] MEDS ORDERED: Acetaminophen 325 MG TABLET PO PRN (13:49)
[2016-10-23] MEDS ORDERED: D5% in Water 1,000 ML IV PRN (13:49)
[2016-10-23] MEDS ORDERED: Naloxone 0.4 MG/ML INJ IVP PRN (13:49)
[2016-10-23] MEDS ORDERED: Nitroglycerin 0.4 MG TAB.SUBL SL PRN (13:49)
[2016-10-23] MEDS ORDERED: *HR* OxyCODONE Immed Rel 5 MG TABLET PO PRN (13:49)
[2016-10-23] MEDS ORDERED: *HR* Morphine 2 MG/ML SYRINGE IVP PRN (13:49)
--- NOTE | 2016-10-23 13:49 | Internal Med Progress Note ---
<Nehemiah Fair - Last Filed: 10/23/16 13:54> Date of Encounter: 10/23/16 Time of Encounter: 13:47 - Assessment and plan (1) NSTEMI (non-ST elevated myocardial infarction) Current Visit: Yes Status: Acute Assessment and plan: Currently patient is chest pain free. 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 Not able to perform PTCA or CABG. Now in complete heart block. S/P pacemaker placement Continue medical managment Continue ASA, plavix,Lipitor. coninue glycemic control. possible DC in AM if continues to do well. (2) Coronary artery disease Current Visit: Yes Status: Acute Assessment and plan: as stated above. Qualifiers: Coronary Disease-Associated Artery/Lesion type: [place] artery [place] vs. transplanted heart: [place] heart Associated angina: with unstable angina Qualified Code(s): I25.110 - Atherosclerotic heart disease of [place] coronary artery with unstable angina pectoris (3) Bradycardia Current Visit: Yes Status: Acute Assessment and plan: S/p pacemaker placement. (4) Diabetes Current Visit: Yes Status: Acute Assessment and plan: currently at goal. Continue levemir and sliding scale insulin Qualifiers: Diabetes mellitus type: type 2 Diabetes mellitus complication status: with unspecified complications Diabetes mellitus director long term care insulin use: unspecified director long term care insulin use status Qualified Code(s): E11.8 - Type 2 diabetes mellitus with unspecified complications (5) Anemia Current Visit: Yes Status: Acute Assessment and plan: mild normocytic. mild trend down. Post pacemaker placement. likely dilution and from repeated blood work. continue to monitor. Qualifiers: Anemia type: iron deficiency Iron deficiency anemia type: unspecified iron deficiency Qualified Code(s): D50.9 - Iron deficiency anemia, unspecified (6) Status post placement of cardiac pacemaker Current Visit: Yes Status: Acute Assessment and plan: incision site is clean and dry. continue post pacemaker placement protocol per cardiology. (7) DVT prophylaxis Current Visit: Yes Status: Acute Assessment and plan: SQ heparin - Subjective Interval history: No major events overnight. Patient states that her pain is well controlled. her back pain has resolved. She denies any chest pain or dyspnea. She has no further complaints or concerns at this time. - Constitutional Vitals: Temp Pulse Resp BP Pulse Ox 98.3 F 77 16 139/70 94 L 10/23/16 11:45 10/23/16 13:00 10/23/16 13:00 10/23/16 13:00 10/23/16 13:00 General appearance: Present: A&O X 3, pleasant, no acute distress, answers questions appropriately - Head Head exam: Present: atraumatic, normocephalic - Eye Eye exam: Present: PERRL, conjuntiva pink, sclera anicteric Pupils: Present: PERRL - Neck Neck exam general surgery: Present: supple, trachea midline. Absent: lymphadenopathy - Respiratory Respiratory exam: Present: CTAB. Absent: accessory muscle use, rales, rhonchi, wheezes - Cardiovascular Cardiovascular exam: Present: RRR, +S1, +S2. Absent: diastolic murmur, gallop, rubs, systolic murmur Additional comments: well healing incision site on anterior chest wall. - GI/Abdominal GI/Abdominal exam: Present: normal bowel sounds, soft, no peritoneal signs. Absent: distended, tenderness - Extremities Exam Extremities exam: Present: pedal edema, warm, radial pulses palpable and symetrical. Absent: calf tenderness, cyanotic Internal Medicine: Result - Labs CBC & Chem 7: 10/23/16 03:01 10/23/16 03:01 Labs: Short CBC 10/23/16 Range/Units 03:01 WBC 7.0 (4.3-11.1) K/mcL Hgb 10.9 L (11.5-15.4) g/dL Hct 32.6 L (35.3-44.9) % Plt Count 177 (140-400) K/mcL Neutrophils # 5.0 (1.6-8.9) K/mcL BMP 10/23/16 03:01 Sodium 136 Potassium 3.9 Chloride 105 Carbon Dioxide 23 BUN 12 Creatinine 0.64 Glucose 95 Calcium 8.4 L - ABG Interpretation ABG results: PT/INR, D-dimer PT 12.4 Seconds (9.4-12.1) H 10/19/16 14:21 - Impressions Impressions Chest X-Ray 10/22/16 15:21 IMPRESSION: Placement of left chest wall cardiac pacer device with leads in expected positions. No evidence of pneumothorax. Cardiomegaly with mild CHF findings including central pulmonary vascular congestion and small left pleural effusion. D/ / Benoit iLu MD / Benoit Liu MD Interpreting Provider: Benoit Liu MD Chest X-Ray 10/23/16 06:00 IMPRESSION: Status post left chest wall dual lead pacer placement. No complication. Bibasilar opacities and bilateral effusions. D/ / 10/23/2016 11:25:03 Vita Gonzalez MD / manjinder Interpreting Provider: Vita Gonzalez MD - VTE Documentation of Mechanical Device: Venous foot pump, device Consult Discharge Plan - Plan Additional Instructions: ACTIVITY: Moderate activity for the next 7 days. No lifting more than 5 pounds ( gallon of milk) for 4-6 weeks. Avoid lifting your arm on the same side as the device for 4 weeks. BATHING /SHOWERING: Do not remove the large bandage over the site for 2 days. Do not allow the device to get wet for 7-10 days. You may bathe/shower, but do not use soap and water on the site. When bathing, keep the site dry by covering with Saran wrap or a towel. WOUND CARE: The white steri-strips will start to peel away and come off after 14 days, or your doctor will remove them after [address] into or on top of the incision. Do not use cotton swabs. Do not use any antibiotic ointment or Vitamin E on the site. REMINDERS: You may use electrical devices, such as, microwaves, hair dryers, electric razors, electric blankets, etc. as long as they are in good condition and kept 6 -8 inches away from the device. It is recommended to use cell phones on the opposite side of your device. Notify security personnel at the airport that you have a device before you go through airport security screening. When at places with security monitors, such as a grocery store, do not linger near these monitors. It is fine to walk past them in a normal manner. Refer to your owners manual for more specific directions. CARRY YOUR PACEMAKER/ICD CARD WITH YOU AT ALL TIMES Return to work as instructed per physician Resume driving as instructed per physician Keep all scheduled follow up appointments Resume medications as instructed Contact [facility] ( ) if: You develop excessive bleeding from insertion or wound site not controlled by applying pressure You develop a fever greater than 101 degrees Fahrenheit Your incision becomes reddened at or around the site Your incision develops yellowish or greenish drainage or development of white pimple-like bumps You experience excessive pain You develop swelling in your ankles You experience muscle switching You develop excessive hiccupping If you experience chest pain, shortness of breath, dizziness, or extreme tiredness, stop the activity and rest. Please notify [facility] office if you experience any of these symptoms and they are not relieved by rest please call 911! Referrals: Tye Perales MD [Partnered Physician] - ([facility]: 11/01/16 at 8:00 AM for wound check 11/29/16 at 8:00 AM for device check) Meño Marroquin DO [Primary Care Provider] - Henrry Rai DO [Partnered Physician] - 10/31/16 9:05 am <Gray L[place]agston - Last Filed: 10/23/16 14:23> - Constitutional Vitals: Temp Pulse Resp BP Pulse Ox 98.3 F 77 16 139/70 94 L 10/23/16 11:45 10/23/16 13:00 10/23/16 13:00 10/23/16 13:00 10/23/16 13:00 Internal Medicine: Result - Labs CBC & Chem 7: 10/23/16 03:01 10/23/16 03:01 Labs: Short CBC 10/23/16 Range/Units 03:01 WBC 7.0 (4.3-11.1) K/mcL Hgb 10.9 L (11.5-15.4) g/dL Hct 32.6 L (35.3-44.9) % Plt Count 177 (140-400) K/mcL Neutrophils # 5.0 (1.6-8.9) K/mcL BMP 10/23/16 03:01 Sodium 136 Potassium 3.9 Chloride 105 Carbon Dioxide 23 BUN 12 Creatinine 0.64 Glucose 95 Calcium 8.4 L - ABG Interpretation ABG results: PT/INR, D-dimer PT 12.4 Seconds (9.4-12.1) H 10/19/16 14:21 - Impressions Impressions Chest X-Ray 10/22/16 15:21 IMPRESSION: Placement of left chest wall cardiac pacer device with leads in expected positions. No evidence of pneumothorax. Cardiomegaly with mild CHF findings including central pulmonary vascular congestion and small left pleural effusion. D/ / Benoit Liu MD / Benoit Liu MD Interpreting Provider: Benoit Liu MD Chest X-Ray 10/23/16 06:00 IMPRESSION: Status post left chest wall dual lead pacer placement. No complication. Bibasilar opacities and bilateral effusions. D/ / 10/23/2016 11:25:03 Vita Gonzalez MD / manjinder Interpreting Provider: Vita Gonzalez MD - Attending Attestation I examined this patient and my medical decision-making was reviewed with the CHEMISTRY ASSOCIATE/PA/Advanced Practice Nurse/Resident Physician. I agree with the documented findings, disposition and treatment plan as described except to the extent set forth below. S/P PPM. D/C [facility]. Possible D/C tomorrow/ D/W cardiology.
--- NOTE | 2016-10-23 15:40 | Invasive Diagnostic Lab Proc ---
Name: Doris Brennan Date of Study: 10/20/2016 Date: 1945 Ht: 61.0in Medical Record#: [id number] Age: 71 Wt: 176.37lb Gender: Female BSA: 1.79 Order #: [id number] BMI: 33.3 Physicians Procedure Physician: Alex Cisneros MD Referring MD: Meño Marroquin DO Referring MD: Staff Name Position Time In Keenan Miles RN Monitor 11:54 AM Indications Indication Non-Stemi Procedures Performed Procedure L HRT ARTERY/VENTRICLE ANGIO MOD SED OTHER PHYS/QHP EA MOD SED OTHER PHYS/QHP EA MOD SED OTHER PHYS/QHP EA MOD SED OTHER PHYS/QHP EA MOD SED OTHER PHYS/QHP EA MOD SED OTHER PHYS/QHP EA MOD SED OTH PHYS/QHP 5/>YRS Pre-Procedure Checklist Informed consent is complete signed and on chart. H\\T\\P is on chart. ID band is on and ID verified with patient. Patient NPO for procedure The procedure was described for the patient and questions were answered. Blood Pressure: 112/55 ECG is on chart. Rhythm: Sinus Bradycardia Plan of Care Patient will tolerate the procedure without complications. Adequate level of comfort will be maintained. Hemodynamics will remain stable Patient will recover from procedure without complications. Respiratory function will be maintained. Cardiac rhythm will remain stable. Patient temperature will be maintained. Patient and/or family have verbalized understanding of the procedure. Patient Education Chief Complaint/Reason for Test: Cardiac Cath Developmental Category: Geriatric (65+ years) Developmentally Appropriate for Age: Yes Learning Barriers: None Education Needs: Procedure Education Method: Verbal Information Taught: Cardiac Cath Educational Evaluation: Able to repeat information Intravenous Access Time IV Size Location DC'd Fluid/Drip Rate Units RN 11:21 AM 18g 1 1/4" Patent On Arrival Lt Wrist Keenan Miles RN 11:22 AM 20g 1 1/4" Patent On Arrival Lt Hand Keenan Miles RN 11:22 AM 18g 1 1/4" Patent On Arrival Lt Antecubital 0.9NaCl 25 ml/hr Keenan Miles RN Allergies guaifenesin Metamucil Vital Signs Time BP (mmHg) HR (bpm) O2 Sat. RR (bpm) LOC 11:17 AM 112 / 55 45 96 % 14 5 = Fully awake and oriented or at pre-proc level 11:56 AM / % 5 = Fully awake and oriented or at pre-proc level 11:56 AM / % 4 = Oriented but drowsy 12:11 PM / % 4 = Oriented but drowsy 12:26 PM / % 4 = Oriented but drowsy 12:41 PM / % 4 = Oriented but drowsy 12:59 PM / % 4 = Oriented but drowsy 01:14 PM / % 4 = Oriented but drowsy 12:30 PM 112 / 43 39 95 % 23 12:31 PM 109 / 53 35 94 % 16 12:35 PM 107 / 41 50 96 % 22 12:40 PM 106 / 58 76 94 % 17 12:45 PM 109 / 57 60 96 % 13 12:50 PM 103 / 60 59 96 % 19 12:55 PM 112 / 60 66 95 % 19 01:01 PM 120 / 55 60 91 % 17 01:05 PM 124 / 61 60 96 % 19 01:11 PM 117 / 58 60 95 % 19 11:55 AM 134 / 65 49 95 % 10 12:00 PM 117 / 56 43 92 % 20 12:06 PM 116 / 59 46 97 % 21 12:09 PM 112 / 53 50 95 % 16 12:15 PM 109 / 53 48 95 % 17 12:20 PM 114 / 59 50 95 % 20 12:25 PM 91 / 53 49 96 % 17 12:26 PM 111 / 57 47 95 % 13 01:15 PM 122 / 62 59 94 % 16 01:20 PM 129 / 60 60 93 % 19 01:25 PM 141 / 64 60 95 % 17 01:30 PM 152 / 71 60 91 % 18 01:29 PM / % 5 = Fully awake and oriented or at pre-proc level Procedural Medications Time Medication Dose Units Method Given By 11:55 AM Oxygen 2 L/min nasal cannula Bhumika Matias RN 11:56 AM Versed 1 mg Intravenous Bhumika Matias RN 11:56 AM Fentanyl 50 mcg Intravenous Bhumika Matias RN 12:02 PM Oxygen 4 L/min nasal cannula Bhumika Matias RN 12:05 PM Lidocaine 2% 16 ml Subcutaneous Alex Cisneros MD 12:08 PM Nitroglycerin 200 mcg Intracoronary Alex Cisneros MD 12:37 PM Atropine 0.5 mg Intravenous Bhumika Matias RN 12:43 PM Angiomax 0.75mg/kg bolus: 12 ml Intravenous Bhumika Matias RN 12:45 PM Angiomax 1.75mg/kg/hr: 28 ml Intravenous Bhumika Matias RN 12:39 PM Lidocaine 2% 12 ml Subcutaneous Alex Cisneros MD 01:24 PM Oxygen 6 L/min nasal cannula Bhumika Matias RN ASA Classification: CLASS II- Mild systemic disease (i.e. well-controlled diabetes, hypertension, asthma, cigarette smoking) Ezekiel Score Preprocedure Postprocedure Activity 2- Moves 4 extremities sustained head lift Activity Circulation 2- SBP +/= 20 points of pre-anesthetic level Circulation Consciousness 2- Awake and alert oriented x 3 Consciousness O2 Saturation 2- Able to maintain O2 satruation of 92% on room air O2 Saturation Respiratory 2- Able to deep breathe and cough well Respiratory Total Score 10 Total Score Contrast Agent: Isovue Diagnostic Contrast: 449 ml Total Contrast: 449 ml Fluoro Dose: 3131 mGy Procedure Log Time Note Enter By 11:16 AM CathStat 11:54 AM Pt arrived to [facility] at 11:54 [facility] 11:54 AM Case Start 11:54 AM Procedure start 11:54 [facility] 11:[facility] AM Keenan Miles RN Position: Monitor Time in: 11:54 [facility] 11:54 AM Patient charges- Angio tray pack, Navilyst 3mm J, Pulse Oximetry and ACIST tubing and transducer csmith 11:54 AM Hair removed from procedure site in holding area using clippers. Bilateral groin prepped with Chloraprep by Cristal Thacker RT (R) then patient draped. Skin intact. csmith 11:54 AM Physician arrived 11:54 csmith 11:54 AM ASA Class II csmith 11:54 AM Meet and greet completed csmith 11:54 AM Sign in performed according to [facility] policy. [facility] Vitals capture started with the following parameters, Patient=Adult, Interval=5 min, Initial Kaiogeys=882 mmHg, Deflation Rate=5 mmHg, Cuff placed on Right Arm 11:55 AM HR=49 bpm, MXRB=579/65 mmhg, SpO2=95.0 %, Resp=10 B/min, Comment=SB 11:55 AM Time: 11:55 Oxygen on at 2 L/min per nasal cannula by Bhumika Matias RN [facility] 11[facility]56 AM Time: 11:55 Patient comfortable and pain free: Yes [facility] 11:56 AM Time: 11:56LOC: 5 = Fully awake and oriented or at pre-proc level [facility] 11:56 AM Time: 11:56 Versed 1 mg Intravenous Given by Bhumika Matias RN [facility] 11:56 AM Time: 11:56 Fentanyl 50 mcg Intravenous Given by Bhumika Matias RN [facility] 12:00 PM HR=43 bpm, CRGY=550/56 mmhg, SpO2=92.0 %, Resp=20 B/min, Comment=SB 12:02 PM Time: 12:02 Oxygen on at 4 L/min per nasal cannula by Bhumika Matias RN [facility] 12:03 PM Pressure channel 1 zeroed. 12:05 PM Time out performed according to hospital policy [facility] 12:06 PM HR=46 bpm, CGFF=969/59 mmhg, SpO2=97.0 %, Resp=21 B/min, Comment=SB 12:06 PM Time: 12:05 16 ml Lidocaine 2% to right groin Subcutaneous Given by Alex Cisneros MD [facility] 12:06 PM Access obtained by percutaneous puncture. 6Fr 11cm Terumo [place] sheath placed in right Femoral artery. [id number] [facility] 12:06 PM 0.035 145cm Navilyst 3mmJ wire [id number] [facility] 12:06 PM 5Fr FL 4 catheter inserted over the wire [facility] 12:07 PM LCA angiography performed in multiple views. [facility] 12:07 PM Recorded Pressure: Ao, HR=47, Condition=Condition 1 (Aorta) Ao 111/48/72 12:08 PM Time: 12:08 Nitroglycerin 200 mcg Intracoronary Given by Alex Cisneros MD [facility] 12:09 PM Lesion found in Proximal LAD. Pre Stenosis: 50 Pre AYDE Flow: [facility] 12:09 PM NIBP STAT measurement started. 12:09 PM Coronary Dominance: right csmith 12:09 PM HR=50 bpm, MUEE=371/53 mmhg, SpO2=95.0 %, Resp=16 B/min, Comment=SB 12:10 PM Catheter removed [facility] 12:10 PM 5Fr FR 4 [facility] Lesion found in 1st Marginal. Pre Stenosis: 20 Pre AYDE Flow: [facility] 12:10 PM Lesion found in Proximal Circumflex. Pre Stenosis: 20 Pre AYDE Flow: csmith 12:11 PM Time: 11:56 Patient comfortable and pain free: Yes csmith 12:11 PM Time: 11:56LOC: 4 = Oriented but drowsy csmith 12:11 PM Recorded Pressure: Ao, HR=51, Condition=Condition 1 (Aorta) Ao 100/54/74 12:12 PM Recorded Pressure: Ao, HR=51, Condition=Condition 1 (Aorta) Ao 99/49/70 12:13 PM Catheter removed csmith 12:13 PM 5Fr AL1 catheter inserted over the wire [id number] csmith 12:15 PM HR=48 bpm, XRSU=156/53 mmhg, SpO2=95.0 %, Resp=17 B/min, Comment=SB 12:16 PM Catheter removed csmith 12:16 PM 6Fr AL1 Runway guide catheter was used to cannulate the PCI vessel successfully. reused? No csmith 12:18 PM RCA difficult to engage, views of RCA suboptimal at this time, attempting to get improved view csmith 12:20 PM Catheter removed csmith 12:20 PM 6Fr AL2 Runway guide catheter was used to cannulate the PCI vessel successfully. reused? No csmith 12:20 PM HR=50 bpm, FHBE=699/59 mmhg, SpO2=95.0 %, Resp=20 B/min, Comment=SB 12:25 PM HR=49 bpm, NIBP=91/53 mmhg, SpO2=96.0 %, Resp=17 B/min, Comment=SB 12:25 PM NIBP STAT measurement started. 12:26 PM Time: 12:11LOC: 4 = Oriented but drowsy [facility] 12:26 PM Time: 12:11 Patient comfortable and pain free: Yes csmith 12:26 PM HR=47 bpm, KFUI=741/57 mmhg, SpO2=95.0 %, Resp=13 B/min, Comment=SB 12:28 PM Catheter removed csmith 12:29 PM Recorded Pressure: LV, HR=50, Condition=Condition 1 (Left Ventricle) LV 107/8/23 12:30 PM 5Fr Pigtail catheter inserted over the wire DNC csmith 12:30 PM Catheter selectively placed in left ventricle csmith 12:30 PM HR=39 bpm, WCMS=697/43 mmhg, SpO2=95.0 %, Resp=23 B/min, Comment=SB 12:30 PM Bolus angiogram of left Ventricle complete: 12 ml/sec for a total of 36 mls csmith 12:31 PM NIBP STAT measurement started. 12:31 PM HR=35 bpm, EGMQ=235/53 mmhg, SpO2=94.0 %, Resp=16 B/min, Comment=SB 12:31 PM Bolus angiogram of Aortic root complete: 20 ml/sec for a total of 40 mls csmith 12:32 PM Catheter removed [facility] 12:35 PM HR=50 bpm, UBEM=687/41 mmhg, SpO2=96.0 %, Resp=22 B/min, Comment=SB 12:37 PM Time: 12:37 Atropine 0.5 mg Intravenous Given by Bhumika Matias RN [facility] 12:38 PM pt with intermittent bradycardia during and after LV, ? 3rd degree heart block [facility] 12:38 PM Access obtained by percutaneous puncture. 6Fr 10cm Locking sheath placed in right Femoral vein. [id number] [facility] 12:39 PM PstProc: Temp pacer on. [facility] 12:39 PM PstProc: Temp pacer turned on, rate 60 ppm, mA 4, sensitivity 2mV [facility] 12:39 PM PstProc:Bard Bipolar Pacing Catheter Temp pacer inserted into right femoral vein [facility] 12:39 PM Time: 12:39 12 ml Lidocaine 2% to right groin Subcutaneous Given by Alex Cisneros MD [facility] 12:40 PM HR=76 bpm, FCVA=764/58 mmhg, SpO2=94.0 %, Resp=17 B/min, Comment=VPACED 12:41 PM Time: 12:26 Patient comfortable and pain free: Yes [facility] 12:41 PM Time: 12:26LOC: 4 = Oriented but drowsy [facility] 12:43 PM Time: 12:43 Angiomax 0.75mg/kg bolus: 12 ml Intravenous Given by Bhumika Matias RN IVP [facility] 12:43 PM 6Fr XB LAD 3.5 Cordis guide catheter was used to cannulate the PCI vessel successfully. reused? No [facility] 12:43 PM .014 Whisper 180cm guide wire across target lesion- successful. reused? No [facility] 12:43 PM Inflation device was opened. [facility] 12:44 PM RCA angiography performed in multiple views. [facility] 12:45 PM HR=60 bpm, AKTI=669/57 mmhg, SpO2=96.0 %, Resp=13 B/min, Comment=V paced 12:46 PM Time: 12:45 Angiomax 1.75mg/kg/hr: 28 ml Intravenous Given by Bhumika Matias RN Salvador pump csmith 12:50 PM HR=59 bpm, RJUK=367/60 mmhg, SpO2=96.0 %, Resp=19 B/min, Comment=V paced 12:52 PM csmith 12:52 PM Catheter removed csmith 12:52 PM 6Fr XB4.0 Cordis guide catheter was used to cannulate the PCI vessel successfully. reused? No csmith 12:53 PM Recorded Pressure: Ao, HR=59, Condition=Condition 1 (Aorta) Ao 122/56/81 12:53 PM Lesion found in Mid RCA. Pre Stenosis: 99 Pre AYDE Flow: 1: Slow Penetration without Perfusion csmith 12:55 PM HR=66 bpm, MUYA=302/60 mmhg, SpO2=95.0 %, Resp=19 B/min, Comment=V paced 12:59 PM Time: 12:41LOC: 4 = Oriented but drowsy csmith 12:59 PM Time: 12:41 Patient comfortable and pain free: Yes csmith 12:59 PM wire removed, xblad 3.5 reinserted csmith 01:01 PM HR=60 bpm, JOMQ=653/55 mmhg, SpO2=91.0 %, Resp=17 B/min, Comment=V paced 01:01 PM new whisper wire inserted, 0.014 180cm csmith 01:05 PM HR=60 bpm, MNCU=844/61 mmhg, SpO2=96.0 %, Resp=19 B/min, Comment=V paced 01:07 PM wire removed to reshape csmith 01:07 PM wire reinserted csmith 01:11 PM HR=60 bpm, PDTI=976/58 mmhg, SpO2=95.0 %, Resp=19 B/min, Comment=V paced 01:14 PM Time: 12:59LOC: 4 = Oriented but drowsy csmith 01:14 PM Time: 12:59 Patient comfortable and pain free: Yes csmith 01:15 PM HR=59 bpm, TEGN=260/62 mmhg, SpO2=94.0 %, Resp=16 B/min, Comment=V paced 01:15 PM continuing to attempt to wire RCA csmith 01:17 PM whisper out csmith 01:19 PM .014 Kinetix Plus 184cm guide wire across target lesion- successful. reused? No csmith 01:20 PM HR=60 bpm, EJWB=444/60 mmhg, SpO2=93.0 %, Resp=19 B/min, Comment=V paced 01:24 PM Time: 13:24 Oxygen on at 6 L/min per nasal cannula by Bhumika Matias RN csmith 01:25 PM wire removed csmith 01:25 PM HR=60 bpm, GBVT=346/64 mmhg, SpO2=95.0 %, Resp=17 B/min, Comment=V paced 01:25 PM .014 Choice floppy (LS) 300cm guide wire across target lesion- successful. reused? No csmith 01:27 PM choice floppy wire removed csmith 01:29 PM Time: 13:14 Patient comfortable and pain free: Yes csmith 01:29 PM Time: 13:14LOC: 4 = Oriented but drowsy csmith 01:30 PM HR=60 bpm, LTUD=278/71 mmhg, SpO2=91.0 %, Resp=18 B/min, Comment=V paced 01:32 PM wire removed csmith 01:32 PM catheter removed csmith 01:34 PM Procedure completed at 13:34 csmith 01:36 PM Sign out completed: Radiation Dose 3131 mGy Fluoro Time: 36.5 Isovue 370 - 200ml contrast 449 ml given by Alex Cisneros MD. Complications: NoneCardiac Rehab Consult needed: YesConfirmed administered medications: Yes csmith 01:38 PM Sheath left in place to be pulled on floor/holding area csmith 01:38 PM venous sheath sutured in place csmith 01:38 PM Post ECG Paced csmith 01:38 PM Post Blood Pressure 161/77 csmith 01:38 PM 13:38 Post Pulses Bilateral DP 2+ csmith 01:38 PM Information taught Cardiac Cath csmith 01:39 PM Education needs Responsibilities of Patient in Care csmith 01:39 PM Learning barriers :None csmith 01:39 PM Education Methods Verbal csmith 01:39 PM Education evaluation Able to repeat information csmith 01:39 PM Site status No bleeding/hematoma - Rt Groin as reported by Cristal Thacker RT (R) at 13:39 csmith 01:39 PM Opsite applied csmith 01:39 PM Plavix, Effient or Brilinta given No csmith 01:40 PM PstProc: Pacer is inserted at 65 cm csmith 01:[address] cisneros consulting with dr. dockery on POC csmith 01:44 PM Time: 13:29LOC: 5 = Fully awake and oriented or at pre-proc level csmith 01:44 PM Time: 13:29 Patient comfortable and pain free: Yes csmith 01:47 PM Family placed in consult room. csmith 01:48 PM Angiomax stopped at this time csmith 01:56 PM Patient out of room: 13:56 csmith 01:56 PM Report given to INSURANCE SPECIAL AGENT Pt taken to ICU Room #9. 13:56 csmith Equipment Used Size Length Diameter Item Category Angio tray pack Other Terumo [place] sheath Navilyst 3mmJ wire Britetip Guide catheter Britetip Guide catheter Pacing Catheter catheter Locking sheath Britetip Guide catheter Glidewire wire Inflation kit Other Salvador pump Other Britetip Guide catheter Glidewire wire Glidewire wire Complications Complication None Hemodynamics Pressures Site Systolic/A Wave Diastolic/V Wave Mean AO 111 48 72 AO 100 54 74 AO 99 49 70 LV 107 8 23 AO 122 56 81 Post Procedure Information Blood Pressure: 161/77 mmHg Rhythm: Paced Post procedural instructions were given Closure Device Time Device Success/Fail Manual Compression Site Checks Time Location Status Staff Sheath In? Note 01:39 PM Rt Groin No bleeding/hematoma Cristal Thacker RT (R) Pulses Time Site Pre-Procedure Post-Procedure Note 10/20/2016 11:23:00 AM Bilateral DP 2+ 10/20/2016 11:23:00 AM Bilateral radial 2+ 1:38:00 PM Bilateral DP 2+ Updated by Keenan Miles RN on 10/23/2016 3:32:09 PM electronically signed on 10/23/2016 3:33:17 PM with status of Final
[2016-10-23 15:55] LABS: Bilirubin,Urine Negative (Negative); Blood,Urine Moderate (Negative); Clarity,Urine Clear (Clear); Color,Urine Yellow (Yellow); Glucose,Urine (UA) 250 mg/dL (Normal); Ketones,Urine Negative (Negative); Leukocyte Esterase,Urine Negative (Negative); Nitrite,Urine Negative (Negative); PH,Urine 5.5 pH Units (5.0-8.0); Protein,Urine Negative (Neg-Trace); Specific Gravity,Urine 1.016 (1.010-1.025); Urobilinogen,Urine Normal (Normal)
[2016-10-23 15:58] LABS: Bacteria,Urine None Seen per hpf (None-Few); Hyaline Casts,Urine None Seen per lpf (None-Few); Squamous Epithelial Cell,Urine Many per lpf (None-Few)
[2016-10-23] MEDS ORDERED: Insulin LISPRO 300 UNITS/3 ML VIAL SQ SCH (21:00)
[2016-10-23] MEDS ORDERED: Insulin DETEMIR 100 UNIT/ML X5UNITS SQ SCH (21:00)
[2016-10-24 03:35] LABS: Basophils % 0.3 %; Eosinophils # 0.1 K/mcL (0.0-0.6); Eosinophils % 1.9 %; Hematocrit 31.7 % (35.3-44.9); Hemoglobin 10.6 g/dL (11.5-15.4); Immature Granulocytes % 0.4 % (0-4); Immature Platelets 2.1 % (1.1-6.1); Lymphocytes # 1.3 K/mcL (0.6-4.6); Lymphocytes % 19.4 %; Mean Corpuscular HGB Conc 33.4 g/dL (31.6-35.5); Mean Corpuscular Hemoglobin 31.1 pg (28.0-33.3); Mean Platelet Volume 9.6 fL (9.4-12.4); Monocytes # 0.5 K/mcL (0.0-1.3); Monocytes % 6.7 %; Neutrophils # 4.9 K/mcL (1.6-8.9); Platelet Count 189 K/mcL (140-400); Red Blood Count 3.41 M/mcL (3.82-4.97); Red Cell Distribution Width 12.6 % (11.5-14.5); Segmented Neutrophils % 71.3 %
[2016-10-24 03:48] LABS: BUN/Creatinine Ratio 16 (6-26); Blood Urea Nitrogen 11 mg/dL (7-20); Calcium 8.4 mg/dL (8.6-10.8); Carbon Dioxide 26 mEq/L (19-29); Chloride 104 mEq/L (98-109); Glucose 125 mg/dL (70-99); Osmolality,Calculated 287 (280-300); Sodium 138 mEq/L (136-145); eGFR For African Americans > 60 (> 60); eGFR For Non-African Americans > 60 (> 60)
[2016-10-24] MEDS: *HR* Heparin 5,000 UNIT/ML VIAL SQ SCH (06:10)
[2016-10-24] MEDS: Insulin LISPRO 300 UNITS/3 ML VIAL SQ SCH ×2 (07:48→12:14)
[2016-10-24] MEDS ORDERED: Aspirin 81 MG TAB.CHEW PO SCH (09:00)
[2016-10-24] MEDS ORDERED: LUTEIN PO SCH (09:00)
[2016-10-24] MEDS ORDERED: Cyanocobalamin (B-12) 1,000 MCG TABLET PO SCH (09:00)
[2016-10-24] MEDS ORDERED: ZEAXANT PO SCH (09:00)
[2016-10-24] MEDS ORDERED: LUTEIN 6 MG PO SCH (09:00)
[2016-10-24] MEDS ORDERED: MULTIVIT MIN PO SCH (09:00)
[2016-10-24] MEDS ORDERED: (Omega-3/Dha/Epa/Fish Oil [Fish Oil 1,000 Mg Softgel]) PO SCH (09:00)
[2016-10-24] MEDS ORDERED: [UNRECOGNIZED DRUG - OTHER] PO SCH (09:00)
[2016-10-24] MEDS ORDERED: BETA CAROTENE 10000 UNIT PO SCH (09:00)
--- NOTE | 2016-10-24 11:31 | Discharge Summary ---
<Nehemiah Fair - Last Filed: 10/24/16 11:24> Date of Encounter: 10/24/16 Time of Encounter: 09:25 - Discharge Diagnosis (1) NSTEMI (non-ST elevated myocardial infarction) Priority: Primary Status: Acute (2) Coronary artery disease Priority: Primary Status: Acute Qualifiers: Coronary Disease-Associated Artery/Lesion type: [place] artery [place] vs. transplanted heart: [place] heart Associated angina: with unstable angina Qualified Code(s): I25.110 - Atherosclerotic heart disease of [place] coronary artery with unstable angina pectoris (3) Bradycardia Priority: Primary Status: Acute (4) Diabetes Priority: Secondary Status: Acute Qualifiers: Diabetes mellitus type: type 2 Diabetes mellitus complication status: with unspecified complications Diabetes mellitus parts counterman insulin use: unspecified parts counterman insulin use status Qualified Code(s): E11.8 - Type 2 diabetes mellitus with unspecified complications (5) Anemia Priority: Secondary Status: Acute Qualifiers: Anemia type: iron deficiency Iron deficiency anemia type: unspecified iron deficiency Qualified Code(s): D50.9 - Iron deficiency anemia, unspecified (6) Status post placement of cardiac pacemaker Priority: Secondary Status: Acute (7) DVT prophylaxis Priority: Secondary Status: Acute - Discharge Medications Prescriptions: Nitroglycerin 0.4 mg SL Q5MIN PRN 30 Days PRN Reason: Chest Pain Aspirin 81 mg PO DAILY 30 Days Atorvastatin [Lipitor] 40 mg PO HS #30 tablet Clopidogrel [Plavix] 75 mg PO DAILY 30 Days Metoprolol [Lopressor] 12.5 mg PO BID 30 Days Home Medications: Beta-Carotene [Beta Carotene] 10,000 unit PO DAILY 10/19/16 [History] Calcium Carbonate/Vitamin D3 [Calcium 600 + Vit D Softgel] 1 cap PO BID [History] Cyanocobalamin (Vitamin B-12) [Vitamin B-12] 1,000 mcg PO DAILY 10/19/16 [ History] Glimepiride [Amaryl] 1 mg PO QAM 10/19/16 [History] Levothyroxine [Synthroid] 112 mcg PO MOTUWETHFRSA 10/19/16 [History] Lutein 6 mg PO DAILY 10/19/16 [History] Multivit-Min/FA/Lutein/Zeaxant [Macular Vitamin Tablet] 1 tab PO DAILY 10/19/16 [History] [place]-3/Dha/Epa/Fish Oil [Fish Oil 1,000 mg Softgel] 1,000 mg PO DAILY 10/19/16 [History] Aspirin 81 mg PO DAILY 30 Days 10/24/16 [Rx] Atorvastatin [Lipitor] 40 mg PO HS #30 tablet 10/24/16 [Rx] Clopidogrel [Plavix] 75 mg PO DAILY 30 Days 10/24/16 [Rx] Metoprolol [Lopressor] 12.5 mg PO BID 30 Days 10/24/16 [Rx] Nitroglycerin 0.4 mg SL Q5MIN PRN 30 Days 10/24/16 [Rx] Allergies/Adverse Reactions: Allergies guaifenesin [From Mucinex] Adverse Reaction (Verified 10/19/16 16:15) Gastrointestinal Upset Procedures/tests Complete & Pending: Procedures Performed prior 72 hours Category Date Time Status CL Insert Permanent Pacemaker [CL] Routine Building Maintenance Worker 10/22/16 11:43 Completed EV limited echocardiogram Routine Y 10/22/16 12:12 Completed Date of admission: 10/19/16 18:14 Primary care physician: Meño Marroquin DO Consults: 10/19/16 18:30 Consult to Cardiology [CONS] Routine Comment: Consulting Provider: Cardiology [facility] Reason for Consult: NSTEMI. 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 Time Notified: 11:50 Call Completed: Yes Discharging clinician: Nehemiah Fair Anticipated date of discharge: 10/24/16 - Patient Status Disposition: Home, Self-Care Condition: Fair Functional capacity at discharge: independent ambulation Overall status at discharge: patient is progressing back to baseline - Discharge Instructions Instructions: Pacemaker (DC), Bradycardia (DC) Follow Up With: Tye Perales MD [Partnered Physician] - ([facility]: 11/01/16 at 8:00 AM for wound check 11/29/16 at 8:00 AM for device check) Meño Marroquin DO [Primary Care Provider] - Henrry Rai DO [Partnered Physician] - 10/31/16 9:05 am Forms: ED Satisfaction Letter Additional Instructions: ACTIVITY: Moderate activity for the next 7 days. No lifting more than 5 pounds ( gallon of milk) for 4-6 weeks. Avoid lifting your arm on the same side as the device for 4 weeks. BATHING /SHOWERING: Do not remove the large bandage over the site for 2 days. Do not allow the device to get wet for 7-10 days. You may bathe/shower, but do not use soap and water on the site. When bathing, keep the site dry by covering with Saran wrap or a towel. WOUND CARE: The white steri-strips will start to peel away and come off after 14 days, or your doctor will remove them after [address] into or on top of the incision. Do not use cotton swabs. Do not use any antibiotic ointment or Vitamin E on the site. REMINDERS: You may use electrical devices, such as, microwaves, hair dryers, electric razors, electric blankets, etc. as long as they are in good condition and kept 6 -8 inches away from the device. It is recommended to use cell phones on the opposite side of your device. Notify security personnel at the airport that you have a device before you go through airport security screening. When at places with security monitors, such as a grocery store, do not linger near these monitors. It is fine to walk past them in a normal manner. Refer to your owners manual for more specific directions. CARRY YOUR PACEMAKER/ICD CARD WITH YOU AT ALL TIMES Return to work as instructed per physician Resume driving as instructed per physician Keep all scheduled follow up appointments Resume medications as instructed Contact [facility] ( ) if: You develop excessive bleeding from insertion or wound site not controlled by applying pressure You develop a fever greater than 101 degrees Fahrenheit Your incision becomes reddened at or around the site Your incision develops yellowish or greenish drainage or development of white pimple-like bumps You experience excessive pain You develop swelling in your ankles You experience muscle switching You develop excessive hiccupping If you experience chest pain, shortness of breath, dizziness, or extreme tiredness, stop the activity and rest. Please notify [facility] office if you experience any of these symptoms and they are not relieved by rest please call 911! - Diet and Activity Activity: increase activity as tolerated (with weight limitations as decribed above. ) Diet: diabetic diet, low fat, low cholesterol Hospital course: Ms. Brennan is a 71 year old female who was admitted with an NSTEMI. 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 It was not able to be corrected with PTCA. CT surgery was consulted to see if it could be corrected with CABG. However it was unable to be corrected surgically as well. It was recommended to be treated medically. She also developed complete heart block and had a dual chamber pacemaker placed on . Today her vitals are within normal limits. she is chest pain free. she is tolerating a diet. she is having normal bowel and bladder function. She is also ambulating independently. She was also treated for a UTI with 5 days of rocephin. we will discharge her today. we will discharge her on lipitor and DAPT and metoprolol. She has voiced back agreemetn and understanding to the above plan. - Time Spent with Patient Total time spent providing and/or coordinating discharge services: Greater than 30 minutes (I spent approximately 42 minutes on this discharge.) - Constitutional Vitals: Temp Pulse Resp BP Pulse Ox 98.2 F 84 20 138/77 96 10/24/16 07:35 10/24/16 07:59 10/24/16 07:59 10/24/16 07:59 10/24/16 07:59 General appearance: Present: A&O X 3, pleasant, no acute distress, answers questions appropriately - Head Head exam: Present: atraumatic, normocephalic - Eye Eye exam: Present: PERRL, conjuntiva pink, sclera anicteric Pupils: Present: PERRL - Neck Neck exam general surgery: Present: supple, trachea midline. Absent: lymphadenopathy - Respiratory Respiratory exam: Present: CTAB. Absent: accessory muscle use, rales, rhonchi, wheezes - Cardiovascular Cardiovascular exam: Present: RRR, +S1, +S2. Absent: diastolic murmur, gallop, rubs, systolic murmur Additional comments: incision site is clean and well dressed. Left chest wall. - GI/Abdominal GI/Abdominal exam: Present: normal bowel sounds, soft, no peritoneal signs. Absent: distended, tenderness - Extremities Exam Extremities exam: Present: warm, radial pulses palpable and symetrical. Absent : calf tenderness, cyanotic, pedal edema - Skin Skin exam: Present: dry, intact - VTE Documentation of Mechanical Device: Venous foot pump, device <Gray Langston Bogdan - Last Filed: 10/24/16 14:33> Procedures/tests Complete & Pending: Procedures Performed prior 72 hours Category Date Time Status CL Insert Permanent Pacemaker [CL] Routine Building Maintenance Worker 10/22/16 11:43 Completed EV limited echocardiogram Routine Y 10/22/16 12:12 Completed Date of admission: 10/19/16 18:14 Primary care physician: Meño Marroquin DO Consults: 10/19/16 18:30 Consult to Cardiology [CONS] Routine Comment: Consulting Provider: Cardiology [facility] Reason for Consult: NSTEMI. 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 Brennan is a 71 year old female - Time Spent with Patient Total time spent providing and/or coordinating discharge services: - Constitutional Vitals: Temp Pulse Resp BP Pulse Ox 97.9 F 82 20 142/62 96 10/24/16 11:39 10/24/16 12:00 10/24/16 12:00 10/24/16 12:00 10/24/16 12:00 - Attending Attestation I examined this patient and my medical decision-making was reviewed with the [employer] DIRECTOR/PA/Advanced Practice Nurse/Resident Physician. I agree with the documented findings, disposition and treatment plan as described except to the extent set forth below. Stable. S/P ppm. Hummel removed. Follow up as outpatient. Agree with Dr. Fair.
[2016-10-24 12:12] VITALS: BP 142/62
== END 2016-10-24 13:18 | disposition home or self-care (01) | DRG 229 ==
LOC: EMEROO 13:16 → 2NENU 13:16 → 2NNU 15:52 → SUATTDRO 18:14 → ICNU 10-20 12:39
PROVIDERS: ADMIT Internal Medicine; ATTEND Internal Medicine

== ENCOUNTER 2021-04-18 03:07 | Inpatient (IN) ==
[2021-04-18] MEDS ORDERED: Furosemide 40 MG/4 ML VIAL IVP ONE (03:27)
[2021-04-18] MEDS ORDERED: Nitroglycerin 1 INCH/GM PACKET TP ONE (03:28)
[2021-04-18 03:39] LABS: Basophils # 0.1 K/mcL (0.0-0.2); Basophils % 0.5 %; Eosinophils # 0.2 K/mcL (0.0-0.6); Eosinophils % 2.1 %; Hematocrit 43.5 % (35.3-44.9); Hemoglobin 14.4 g/dL (11.5-15.4); Immature Granulocytes % 0.3 % (0-4); Lymphocytes # 5.1 K/mcL (0.6-4.6); Lymphocytes % 47.6 %; Mean Corpuscular HGB Conc 33.1 g/dL (31.6-35.5); Mean Corpuscular Hemoglobin 31.6 pg (28.0-33.3); Mean Corpuscular Volume 95.6 fL (83.0-100.0); Mean Platelet Volume 9.5 fL (9.4-12.4); Monocytes # 0.6 K/mcL (0.0-1.3); Monocytes % 5.2 %; Neutrophils # 4.7 K/mcL (1.6-8.9); Platelet Count 230 K/mcL (140-400); Red Blood Count 4.55 M/mcL (3.82-4.97); Red Cell Distribution Width 13.2 % (11.5-14.5); Segmented Neutrophils % 44.3 %; White Blood Count 10.6 K/mcL (4.3-11.1)
[2021-04-18 04:00] LABS: Alanine Aminotransferase 26 Units/L (7-52); Albumin/Globulin Ratio 1.3 (1.1-2.2); Alkaline Phosphatase 104 Units/L (34-104); Aspartate Amino Transferase 20 Units/L (13-39); BUN/Creatinine Ratio 31 (6-26); Bilirubin,Direct 0.1 mg/dL (0.0-0.2); Bilirubin,Indirect 0.3 mg/dL (0.0-1.0); Bilirubin,Total 0.4 mg/dL (0.3-1.0); Blood Urea Nitrogen 24 mg/dL (8-23); Calcium 9.2 mg/dL (8.6-10.3); Carbon Dioxide 23 mEq/L (23-29); Chloride 105 mEq/L (98-107); Glucose 208 mg/dL (70-105); Osmolality,Calculated 296 (280-300); Potassium 3.6 mEq/L (3.5-5.1); Sodium 138 mEq/L (136-145); Troponin I < 0.03 ng/mL (< 0.04); eGFR For African Americans > 60 (> 60); eGFR For Non-African Americans > 60 (> 60)
[2021-04-18] MEDS ORDERED: Ondansetron 4 MG/2 ML VIAL IVP PRN (07:19)
[2021-04-18] MEDS ORDERED: Naloxone 0.4 MG/ML INJ IVP PRN (07:19)
[2021-04-18] MEDS: Furosemide 40 MG/4 ML VIAL IVP SCH (10:00)
[2021-04-18] MEDS ORDERED: *HR* Dextrose 50 % in Water (Vial) 50 ML VIAL IVP PRN (12:10)
[2021-04-18] MEDS ORDERED: D5% in Water 1,000 ML IVC PRN (12:10)
[2021-04-18] MEDS ORDERED: Dextrose Gel 15 GM/37.5 ML TUBE PO PRN ×2 (12:10)
[2021-04-18] MEDS: Insulin LISPRO 300 UNITS/3 ML VIAL SUBQ SCH ×3 (14:30→21:49)
[2021-04-18] MEDS ORDERED: Nitroglycerin 0.4 MG TAB.SUBL SL PRN (15:22)
[2021-04-18] MEDS: Aspirin 81 MG TAB.CHEW PO SCH (21:10)
[2021-04-19] MEDS ORDERED: *HR* Enoxaparin 40 MG/0.4 ML SYRINGE SQ SCH (07:00)
[2021-04-19 07:03] LABS: BUN/Creatinine Ratio 27 (6-26); Basophils % 0.4 %; Blood Urea Nitrogen 18 mg/dL (8-23); Calcium 8.5 mg/dL (8.6-10.3); Carbon Dioxide 27 mEq/L (23-29); Chloride 105 mEq/L (98-107); Eosinophils # 0.1 K/mcL (0.0-0.6); Eosinophils % 1.6 %; Glucose 163 mg/dL (70-105); Hematocrit 36.1 % (35.3-44.9); Immature Granulocytes % 0.3 % (0-4); Lymphocytes # 2.3 K/mcL (0.6-4.6); Lymphocytes % 31.6 %; Magnesium 1.9 mg/dL (1.6-2.6); Mean Corpuscular HGB Conc 33.5 g/dL (31.6-35.5); Mean Corpuscular Hemoglobin 31.8 pg (28.0-33.3); Mean Corpuscular Volume 94.8 fL (83.0-100.0); Mean Platelet Volume 9.9 fL (9.4-12.4); Monocytes # 0.5 K/mcL (0.0-1.3); Monocytes % 7.2 %; Neutrophils # 4.3 K/mcL (1.6-8.9); Osmolality,Calculated 295 (280-300); Platelet Count 178 K/mcL (140-400); Potassium 3.3 mEq/L (3.5-5.1); Red Blood Count 3.81 M/mcL (3.82-4.97); Red Cell Distribution Width 13.3 % (11.5-14.5); Segmented Neutrophils % 58.9 %; Sodium 140 mEq/L (136-145); White Blood Count 7.3 K/mcL (4.3-11.1); eGFR For African Americans > 60 (> 60); eGFR For Non-African Americans > 60 (> 60)
[2021-04-19 07:05] LABS: Hemoglobin 12.1 g/dL (11.5-15.4)
[2021-04-19 07:13] LABS: Thyroid Stimulating Hormone 1.014 mcIU/mL (0.340-5.600)
[2021-04-19 07:15] LABS: Triiodothyronine (T3) Free 2.89 pg/mL (2.50-3.90)
[2021-04-19] MEDS: Cholecalciferol (D-3) 1,000 UNIT (25MCG) TABLET PO SCH (08:58)
[2021-04-19] MEDS: Metoprolol XL (24 HR) Succ 50 MG TAB.ER.24H PO SCH (08:59)
[2021-04-19] MEDS: Multivit/Ca/Min/Fe/FA 1 TAB TABLET PO SCH (08:59)
[2021-04-19] MEDS ORDERED: *HR* Rivaroxaban 10 MG TABLET PO SCH (09:00)
[2021-04-19] MEDS ORDERED: Lisinopril-HCTZ 20-12.5mg TABLET PO SCH (09:00)
[2021-04-19] MEDS ORDERED: [UNRECOGNIZED DRUG - OTHER] PO SCH (09:00)
[2021-04-19] MEDS: Insulin LISPRO 300 UNITS/3 ML VIAL SUBQ SCH ×4 (09:11→20:46)
[2021-04-19] MEDS: Calcium Gluconate 1gm/50mL 1 GM/50 ML BAG IVPB SCH ×2 (11:05→13:04)
[2021-04-19] MEDS: Furosemide 40 MG/4 ML VIAL IVP SCH (11:06)
[2021-04-19] MEDS: Cyanocobalamin (B-12) 1,000 MCG TABLET PO SCH (12:21)
[2021-04-19 12:37] LABS: Adenovirus Not Detected (Not Detect); Bordetella Pertussis Not Detected (Not Detect); Chlamydophila pneumoniae Not Detected (Not Detect); Coronavirus 229E Not Detected (Not Detect); Coronavirus HKU1 Not Detected (Not Detect); Coronavirus NL63 Not Detected (Not Detect); Coronavirus OC43 Not Detected (Not Detect); Human Metapneumovirus Not Detected (Not Detect); Human Rhinovirus/Enterovirus Not Detected (Not Detect); Influenza A Subtype 2009 H1 Not Detected (Not Detect); Influenza B Not Detected (Not Detect); Mycoplasma pneumoniae Not Detected (Not Detect); Parainfluenza Virus 1 Not Detected (Not Detect); Parainfluenza Virus 2 Not Detected (Not Detect); Parainfluenza Virus 3 Not Detected (Not Detect); Parainfluenza Virus 4 Not Detected (Not Detect); Respiratory Syncytial Virus Not Detected (Not Detect); SARS-CoV-2 Not Detected (Not Detect)
[2021-04-19 18:28] LABS: Hematocrit 41.2 % (35.3-44.9); Mean Corpuscular Hemoglobin 32.2 pg (28.0-33.3); Mean Corpuscular Volume 94.7 fL (83.0-100.0); Mean Platelet Volume 9.6 fL (9.4-12.4); Platelet Count 213 K/mcL (140-400); Red Blood Count 4.35 M/mcL (3.82-4.97); Red Cell Distribution Width 13.2 % (11.5-14.5); White Blood Count 8.5 K/mcL (4.3-11.1)
[2021-04-19 18:38] LABS: INR 2.1; Prothrombin Time 23.3 Seconds (9.4-12.1)
[2021-04-19 18:44] LABS: Troponin I 0.17 ng/mL (< 0.04)
[2021-04-19 18:57] LABS: Estimated Average Glucose 169 mg/dl; Hemoglobin A1C 7.5 %
[2021-04-19] MEDS: Aspirin 81 MG TAB.CHEW PO SCH (20:45)
[2021-04-20 03:22] LABS: Basophils % 0.3 %; Eosinophils # 0.2 K/mcL (0.0-0.6); Eosinophils % 2.1 %; Hematocrit 36.1 % (35.3-44.9); Immature Granulocytes % 0.4 % (0-4); Lymphocytes # 2.9 K/mcL (0.6-4.6); Lymphocytes % 36.8 %; Mean Corpuscular HGB Conc 33.2 g/dL (31.6-35.5); Mean Corpuscular Hemoglobin 31.6 pg (28.0-33.3); Mean Platelet Volume 9.7 fL (9.4-12.4); Monocytes # 0.7 K/mcL (0.0-1.3); Monocytes % 8.6 %; Neutrophils # 4.1 K/mcL (1.6-8.9); Platelet Count 179 K/mcL (140-400); Red Cell Distribution Width 13.2 % (11.5-14.5); Segmented Neutrophils % 51.8 %; White Blood Count 7.9 K/mcL (4.3-11.1)
[2021-04-20 03:41] LABS: Alanine Aminotransferase 18 Units/L (7-52); Albumin 3.4 g/dL (3.5-5.7); Albumin/Globulin Ratio 1.4 (1.1-2.2); Alkaline Phosphatase 74 Units/L (34-104); Aspartate Amino Transferase 14 Units/L (13-39); BUN/Creatinine Ratio 29 (6-26); Bilirubin,Total 0.3 mg/dL (0.3-1.0); Blood Urea Nitrogen 24 mg/dL (8-23); Calcium 8.7 mg/dL (8.6-10.3); Carbon Dioxide 29 mEq/L (23-29); Chloride 104 mEq/L (98-107); Globulin 2.4 g/dL (2.4-3.5); Glucose 140 mg/dL (70-105); Osmolality,Calculated 296 (280-300); Phosphorous 3.4 mg/dL (2.7-4.5); Potassium 3.3 mEq/L (3.5-5.1); Sodium 140 mEq/L (136-145); Total Protein 5.8 g/dL (6.4-8.9); eGFR For African Americans > 60 (> 60); eGFR For Non-African Americans > 60 (> 60)
[2021-04-20] MEDS ORDERED: *HR* Heparin 5,000 UNIT/ML VIAL IVP PRN ×2 (09:00)
[2021-04-20] MEDS: Cholecalciferol (D-3) 1,000 UNIT (25MCG) TABLET PO SCH (09:05)
[2021-04-20] MEDS: Multivit/Ca/Min/Fe/FA 1 TAB TABLET PO SCH (09:05)
[2021-04-20] MEDS: Spironolactone 25 MG TABLET PO SCH (09:05)
[2021-04-20] MEDS: Metoprolol XL (24 HR) Succ 50 MG TAB.ER.24H PO SCH (09:05)
[2021-04-20] MEDS: lisinopriL 20 MG TABLET PO SCH (09:06)
[2021-04-20] MEDS: Insulin LISPRO 300 UNITS/3 ML VIAL SUBQ SCH ×4 (09:08→21:07)
[2021-04-20] MEDS: Furosemide 40 MG/4 ML VIAL IVP SCH ×2 (09:14→21:07)
[2021-04-20] MEDS ORDERED: Heparin 25,000UNIT/250ML 1/2NS 25,000 UNIT/250 ML IV.SOLN IVC SCH (09:15)
[2021-04-20] MEDS ORDERED: Isovue-370 500 ML BOTTLE IVP ONE (11:57)
[2021-04-20] MEDS ORDERED: *HR* Metoprolol 5 MG/5 ML VIAL IVP PRN (12:01)
[2021-04-20] MEDS ORDERED: Perflutren Lipid Microsphere 1.3 ML in 0.9 % Sodium Chloride 8.7 ML IVP PRN (12:11)
[2021-04-20] MEDS: Aspirin 81 MG TAB.CHEW PO SCH (21:06)
[2021-04-21 03:00] LABS: Basophils % 0.3 %; Eosinophils # 0.2 K/mcL (0.0-0.6); Eosinophils % 2.6 %; Hematocrit 37.1 % (35.3-44.9); Hemoglobin 12.3 g/dL (11.5-15.4); Immature Granulocytes % 0.5 % (0-4); Lymphocytes # 3.3 K/mcL (0.6-4.6); Lymphocytes % 41.3 %; Mean Corpuscular HGB Conc 33.2 g/dL (31.6-35.5); Mean Corpuscular Hemoglobin 31.4 pg (28.0-33.3); Mean Corpuscular Volume 94.6 fL (83.0-100.0); Mean Platelet Volume 9.3 fL (9.4-12.4); Monocytes # 0.5 K/mcL (0.0-1.3); Monocytes % 6.8 %; Neutrophils # 3.9 K/mcL (1.6-8.9); Platelet Count 181 K/mcL (140-400); Red Blood Count 3.92 M/mcL (3.82-4.97); Red Cell Distribution Width 13.2 % (11.5-14.5); Segmented Neutrophils % 48.5 %
[2021-04-21 03:19] LABS: Alanine Aminotransferase 20 Units/L (7-52); Albumin 3.5 g/dL (3.5-5.7); Albumin/Globulin Ratio 1.3 (1.1-2.2); Alkaline Phosphatase 75 Units/L (34-104); Aspartate Amino Transferase 16 Units/L (13-39); BUN/Creatinine Ratio 33 (6-26); Bilirubin,Total 0.5 mg/dL (0.3-1.0); Blood Urea Nitrogen 26 mg/dL (8-23); Calcium 8.9 mg/dL (8.6-10.3); Carbon Dioxide 28 mEq/L (23-29); Chloride 103 mEq/L (98-107); Globulin 2.6 g/dL (2.4-3.5); Glucose 154 mg/dL (70-105); Magnesium 1.9 mg/dL (1.6-2.6); Osmolality,Calculated 294 (280-300); Phosphorous 3.5 mg/dL (2.7-4.5); Potassium 3.7 mEq/L (3.5-5.1); Sodium 138 mEq/L (136-145); Total Protein 6.1 g/dL (6.4-8.9); eGFR For African Americans > 60 (> 60); eGFR For Non-African Americans > 60 (> 60)
[2021-04-21] MEDS: Insulin LISPRO 300 UNITS/3 ML VIAL SUBQ SCH ×4 (09:00→20:54)
[2021-04-21] MEDS: Multivit/Ca/Min/Fe/FA 1 TAB TABLET PO SCH (09:03)
[2021-04-21] MEDS: lisinopriL 20 MG TABLET PO SCH (09:03)
[2021-04-21] MEDS: Metoprolol XL (24 HR) Succ 50 MG TAB.ER.24H PO SCH (09:03)
[2021-04-21] MEDS: Spironolactone 25 MG TABLET PO SCH (09:03)
[2021-04-21] MEDS: Cholecalciferol (D-3) 1,000 UNIT (25MCG) TABLET PO SCH (09:03)
[2021-04-21] MEDS: Furosemide 40 MG/4 ML VIAL IVP SCH ×2 (10:29→20:39)
[2021-04-21] MEDS ORDERED: *HR* Heparin 5,000 UNIT/ML VIAL IVP PRN ×2 (14:33)
[2021-04-21] MEDS: Heparin 25,000UNIT/250ML 1/2NS 25,000 UNIT/250 ML IV.SOLN IVC SCH (17:23)
[2021-04-21] MEDS: Aspirin 81 MG TAB.CHEW PO SCH (20:38)
[2021-04-22 07:23] LABS: Basophils % 0.3 %; Eosinophils # 0.2 K/mcL (0.0-0.6); Eosinophils % 2.3 %; Hematocrit 35.1 % (35.3-44.9); Hemoglobin 12.2 g/dL (11.5-15.4); Immature Granulocytes % 0.6 % (0-4); Lymphocytes # 2.6 K/mcL (0.6-4.6); Mean Corpuscular HGB Conc 34.8 g/dL (31.6-35.5); Mean Corpuscular Hemoglobin 32.7 pg (28.0-33.3); Mean Corpuscular Volume 94.1 fL (83.0-100.0); Mean Platelet Volume 9.8 fL (9.4-12.4); Monocytes # 0.6 K/mcL (0.0-1.3); Monocytes % 8.1 %; Neutrophils # 3.5 K/mcL (1.6-8.9); Platelet Count 174 K/mcL (140-400); Red Blood Count 3.73 M/mcL (3.82-4.97); Red Cell Distribution Width 13.3 % (11.5-14.5); Segmented Neutrophils % 50.7 %; White Blood Count 6.9 K/mcL (4.3-11.1)
[2021-04-22 07:40] LABS: Alanine Aminotransferase 18 Units/L (7-52); Albumin 3.6 g/dL (3.5-5.7); Albumin/Globulin Ratio 1.6 (1.1-2.2); Alkaline Phosphatase 75 Units/L (34-104); Aspartate Amino Transferase 15 Units/L (13-39); BUN/Creatinine Ratio 41 (6-26); Bilirubin,Total 0.4 mg/dL (0.3-1.0); Blood Urea Nitrogen 32 mg/dL (8-23); Carbon Dioxide 27 mEq/L (23-29); Chloride 105 mEq/L (98-107); Globulin 2.3 g/dL (2.4-3.5); Glucose 154 mg/dL (70-105); Osmolality,Calculated 300 (280-300); Phosphorous 3.8 mg/dL (2.7-4.5); Potassium 3.6 mEq/L (3.5-5.1); Sodium 140 mEq/L (136-145); Total Protein 5.9 g/dL (6.4-8.9); eGFR For African Americans > 60 (> 60); eGFR For Non-African Americans > 60 (> 60)
[2021-04-22 08:48] LABS: Calcium 8.8 mg/dL (8.6-10.3)
[2021-04-22] MEDS: lisinopriL 20 MG TABLET PO SCH (09:51)
[2021-04-22] MEDS: Multivit/Ca/Min/Fe/FA 1 TAB TABLET PO SCH (09:51)
[2021-04-22] MEDS: Spironolactone 25 MG TABLET PO SCH (09:51)
[2021-04-22] MEDS: Cholecalciferol (D-3) 1,000 UNIT (25MCG) TABLET PO SCH (09:51)
[2021-04-22] MEDS: Metoprolol XL (24 HR) Succ 50 MG TAB.ER.24H PO SCH (09:51)
[2021-04-22] MEDS: Insulin LISPRO 300 UNITS/3 ML VIAL SUBQ SCH ×4 (09:52→21:51)
[2021-04-22] MEDS ORDERED: Furosemide 40 MG/4 ML VIAL IVP SCH (17:00)
[2021-04-22] MEDS: Furosemide 40 MG TABLET PO SCH (17:06)
[2021-04-22] MEDS: Aspirin 81 MG TAB.CHEW PO SCH (21:43)
[2021-04-22] MEDS: Heparin 25,000UNIT/250ML 1/2NS 25,000 UNIT/250 ML IV.SOLN IVC SCH (21:43)
[2021-04-23 03:03] LABS: Hematocrit 35.9 % (35.3-44.9); Hemoglobin 11.9 g/dL (11.5-15.4); Mean Corpuscular HGB Conc 33.1 g/dL (31.6-35.5); Mean Corpuscular Hemoglobin 31.4 pg (28.0-33.3); Mean Corpuscular Volume 94.7 fL (83.0-100.0); Mean Platelet Volume 9.4 fL (9.4-12.4); Platelet Count 176 K/mcL (140-400); Red Blood Count 3.79 M/mcL (3.82-4.97); Red Cell Distribution Width 13.3 % (11.5-14.5); White Blood Count 7.3 K/mcL (4.3-11.1)
[2021-04-23 03:11] LABS: Prothrombin Time 12.1 Seconds (9.4-12.1)
[2021-04-23 03:24] LABS: BUN/Creatinine Ratio 44 (6-26); Blood Urea Nitrogen 32 mg/dL (8-23); Calcium 8.8 mg/dL (8.6-10.3); Carbon Dioxide 26 mEq/L (23-29); Chloride 106 mEq/L (98-107); Glucose 167 mg/dL (70-105); Magnesium 1.8 mg/dL (1.6-2.6); Osmolality,Calculated 299 (280-300); Phosphorous 3.2 mg/dL (2.7-4.5); Potassium 4.2 mEq/L (3.5-5.1); Sodium 139 mEq/L (136-145); eGFR For African Americans > 60 (> 60); eGFR For Non-African Americans > 60 (> 60)
[2021-04-23] MEDS: Multivit/Ca/Min/Fe/FA 1 TAB TABLET PO SCH (08:37)
[2021-04-23] MEDS: Furosemide 40 MG TABLET PO SCH ×2 (08:37→17:59)
[2021-04-23] MEDS: Metoprolol XL (24 HR) Succ 50 MG TAB.ER.24H PO SCH (08:38)
[2021-04-23] MEDS: lisinopriL 20 MG TABLET PO SCH (08:38)
[2021-04-23] MEDS: Cyanocobalamin (B-12) 1,000 MCG TABLET PO SCH (08:38)
[2021-04-23] MEDS: Cholecalciferol (D-3) 1,000 UNIT (25MCG) TABLET PO SCH (08:38)
[2021-04-23] MEDS: Insulin LISPRO 300 UNITS/3 ML VIAL SUBQ SCH ×4 (08:42→20:20)
[2021-04-23] MEDS: Acetaminophen 325 MG TABLET PO PRN (08:47)
[2021-04-23] MEDS ORDERED: *HR* FentaNYL (PF) 100 MCG/2 ML VIAL ONE (12:53)
[2021-04-23] MEDS ORDERED: *HR* Midazolam HCl 2 MG/2 ML VIAL ONE (12:53)
[2021-04-23] MEDS ORDERED: *HR* Heparin 10,000 UNIT/10 ML VIAL ONE (12:54)
[2021-04-23] MEDS ORDERED: ISOVUE-370 200 ML INFUS..BTL ONE ×2 (12:54→13:55)
[2021-04-23] MEDS ORDERED: Nitroglycerin 1,000 MCG/5 ML VIAL IV ONE (12:54)
[2021-04-23] MEDS ORDERED: 0.9 % Sodium Chloride 2,000 ML ONE (12:54)
[2021-04-23] MEDS ORDERED: Heparin 1,000 UNITS/500 mL 500 ML ONE ×2 (12:54→14:16)
[2021-04-23] MEDS: Pregabalin 25 MG CAPSULE PO SCH ×2 (17:59→20:02)
[2021-04-23] MEDS: Spironolactone 25 MG TABLET PO SCH (18:10)
[2021-04-23] MEDS: Aspirin 81 MG TAB.CHEW PO SCH (20:19)
[2021-04-24 02:59] LABS: Hematocrit 37.3 % (35.3-44.9); Hemoglobin 12.3 g/dL (11.5-15.4); Mean Corpuscular Hemoglobin 31.5 pg (28.0-33.3); Mean Corpuscular Volume 95.4 fL (83.0-100.0); Mean Platelet Volume 9.4 fL (9.4-12.4); Platelet Count 198 K/mcL (140-400); Red Blood Count 3.91 M/mcL (3.82-4.97); Red Cell Distribution Width 13.6 % (11.5-14.5); White Blood Count 7.1 K/mcL (4.3-11.1)
[2021-04-24 03:22] LABS: BUN/Creatinine Ratio 28 (6-26); Blood Urea Nitrogen 26 mg/dL (8-23); Calcium 9.1 mg/dL (8.6-10.3); Carbon Dioxide 26 mEq/L (23-29); Chloride 103 mEq/L (98-107); Glucose 140 mg/dL (70-105); Magnesium 1.9 mg/dL (1.6-2.6); Osmolality,Calculated 291 (280-300); Phosphorous 4.8 mg/dL (2.7-4.5); Potassium 3.7 mEq/L (3.5-5.1); Sodium 137 mEq/L (136-145); eGFR For African Americans > 60 (> 60); eGFR For Non-African Americans 58 (> 60)
[2021-04-24] MEDS: Furosemide 40 MG TABLET PO SCH (09:10)
[2021-04-24] MEDS: Multivit/Ca/Min/Fe/FA 1 TAB TABLET PO SCH (09:10)
[2021-04-24] MEDS: lisinopriL 20 MG TABLET PO SCH (09:10)
[2021-04-24] MEDS: Pregabalin 25 MG CAPSULE PO SCH ×2 (09:11→20:33)
[2021-04-24] MEDS: Spironolactone 25 MG TABLET PO SCH (09:11)
[2021-04-24] MEDS: Cholecalciferol (D-3) 1,000 UNIT (25MCG) TABLET PO SCH (09:11)
[2021-04-24] MEDS: Metoprolol XL (24 HR) Succ 50 MG TAB.ER.24H PO SCH (09:11)
[2021-04-24] MEDS: Insulin LISPRO 300 UNITS/3 ML VIAL SUBQ SCH ×4 (09:11→21:00)
[2021-04-24] MEDS: Acetaminophen 325 MG TABLET PO PRN (15:18)
[2021-04-24] MEDS: Aspirin 81 MG TAB.CHEW PO SCH (20:33)
[2021-04-25 03:46] LABS: Hemoglobin 11.5 g/dL (11.5-15.4); Mean Corpuscular HGB Conc 33.8 g/dL (31.6-35.5); Mean Corpuscular Hemoglobin 32.5 pg (28.0-33.3); Platelet Count 180 K/mcL (140-400); Red Blood Count 3.54 M/mcL (3.82-4.97); Red Cell Distribution Width 13.4 % (11.5-14.5); White Blood Count 7.6 K/mcL (4.3-11.1)
[2021-04-25 04:09] LABS: BUN/Creatinine Ratio 31 (6-26); Blood Urea Nitrogen 30 mg/dL (8-23); Carbon Dioxide 29 mEq/L (23-29); Chloride 100 mEq/L (98-107); Glucose 197 mg/dL (70-105); Magnesium 1.8 mg/dL (1.6-2.6); Osmolality,Calculated 296 (280-300); Phosphorous 3.8 mg/dL (2.7-4.5); Potassium 3.7 mEq/L (3.5-5.1); Sodium 137 mEq/L (136-145); eGFR For African Americans > 60 (> 60); eGFR For Non-African Americans 55 (> 60)
[2021-04-25] MEDS: Heparin 25,000UNIT/250ML 1/2NS 25,000 UNIT/250 ML IV.SOLN IVC SCH (04:18)
[2021-04-25] MEDS: Cholecalciferol (D-3) 1,000 UNIT (25MCG) TABLET PO SCH (08:13)
[2021-04-25] MEDS: Metoprolol XL (24 HR) Succ 50 MG TAB.ER.24H PO SCH (08:14)
[2021-04-25] MEDS: Furosemide 40 MG TABLET PO SCH (08:14)
[2021-04-25] MEDS: Multivit/Ca/Min/Fe/FA 1 TAB TABLET PO SCH (08:14)
[2021-04-25] MEDS: Pregabalin 25 MG CAPSULE PO SCH ×2 (08:14→20:21)
[2021-04-25] MEDS: Insulin LISPRO 300 UNITS/3 ML VIAL SUBQ SCH ×4 (08:17→20:22)
[2021-04-25] MEDS ORDERED: 0.9 % Sodium Chloride 1,000 ML ONE (10:51)
[2021-04-25] MEDS ORDERED: ISOVUE-370 200 ML INFUS..BTL ONE (10:52)
[2021-04-25] MEDS ORDERED: Heparin 1,000 UNITS/500 mL 500 ML ONE (10:52)
[2021-04-25] MEDS ORDERED: *HR* Heparin 10,000 UNIT/10 ML VIAL ONE (10:52)
[2021-04-25] MEDS ORDERED: Nitroglycerin 1,000 MCG/5 ML VIAL IV ONE (10:52)
[2021-04-25] MEDS ORDERED: *HR* FentaNYL (PF) 100 MCG/2 ML VIAL ONE (11:15)
[2021-04-25] MEDS ORDERED: *HR* Midazolam HCl 2 MG/2 ML VIAL ONE (11:15)
[2021-04-25] MEDS ORDERED: Tirofiban 12.5 MG/250ML 12.5 MG/250 ML BAG ONE (11:34)
[2021-04-25] MEDS ORDERED: Tirofiban 12.5 MG/250ML 12.5 MG/250 ML BAG IVC SCH (13:30)
[2021-04-25] MEDS: Aspirin 81 MG TAB.CHEW PO SCH (20:21)
[2021-04-26 06:03] LABS: Basophils % 0.4 %; Eosinophils # 0.2 K/mcL (0.0-0.6); Eosinophils % 2.7 %; Hematocrit 35.5 % (35.3-44.9); Hemoglobin 11.7 g/dL (11.5-15.4); Immature Granulocytes % 0.4 % (0-4); Mean Corpuscular Hemoglobin 31.5 pg (28.0-33.3); Mean Corpuscular Volume 95.7 fL (83.0-100.0); Mean Platelet Volume 10.2 fL (9.4-12.4); Monocytes # 0.6 K/mcL (0.0-1.3); Monocytes % 7.7 %; Neutrophils # 4.6 K/mcL (1.6-8.9); Platelet Count 102 K/mcL (140-400); Red Blood Count 3.71 M/mcL (3.82-4.97); Red Cell Distribution Width 13.3 % (11.5-14.5); Segmented Neutrophils % 61.8 %; White Blood Count 7.4 K/mcL (4.3-11.1)
[2021-04-26 07:13] VITALS: BP 125/67; PULSE 64; TEMP 98.4; O2SAT 96
[2021-04-26] MEDS: Multivit/Ca/Min/Fe/FA 1 TAB TABLET PO SCH (07:45)
[2021-04-26] MEDS: Furosemide 40 MG TABLET PO SCH (07:45)
[2021-04-26] MEDS: Cholecalciferol (D-3) 1,000 UNIT (25MCG) TABLET PO SCH (07:45)
[2021-04-26] MEDS: Metoprolol XL (24 HR) Succ 50 MG TAB.ER.24H PO SCH (07:46)
[2021-04-26] MEDS: Pregabalin 25 MG CAPSULE PO SCH (07:46)
[2021-04-26] MEDS: Insulin LISPRO 300 UNITS/3 ML VIAL SUBQ SCH (07:47)
[2021-04-26 07:51] LABS: BUN/Creatinine Ratio 28 (6-26); Blood Urea Nitrogen 23 mg/dL (8-23); Carbon Dioxide 27 mEq/L (23-29); Chloride 102 mEq/L (98-107); Glucose 131 mg/dL (70-105); Osmolality,Calculated 287 (280-300); Sodium 136 mEq/L (136-145); eGFR For African Americans > 60 (> 60); eGFR For Non-African Americans > 60 (> 60)
[2021-04-26] MEDS: Cyanocobalamin (B-12) 1,000 MCG TABLET PO SCH (10:34)
== END 2021-04-26 12:45 | disposition home or self-care (01) | DRG 246 ==
LOC: EMEROOARM 03:07 → 2NENU 03:07 → SUATTDRO 06:49 → 2NENU 08:00 → SUATTDRO 04-20 16:26
PROVIDERS: ADMIT Pharmacist; ATTEND Pharmacist